=== PATIENT | female | born 1955 | race Caucasian/White ===

== ENCOUNTER 2017-08-27 13:15 | Inpatient (IN) | payer MEDICARE ==
[2018-01-09] MEDS ORDERED: Sodium Chloride 0.9% 10 ML Syringe FLUSH PRN (00:01)
[2018-01-09] MEDS ORDERED: Lidocaine 1%/Sod Bicarbonate in NS 8.4% 1 ML Syringe IDERM PRN (00:01)
[2018-01-09] MEDS ORDERED: Lactated Ringers 1,000 ML IV SCH (00:01)
[2018-01-09] MEDS ORDERED: Ketorolac 15 MG/ML SDV IVPUSH PRN (06:58)
[2018-01-09] MEDS ORDERED: Cyclobenzaprine 10 MG Tab PO PRN (06:58)
[2018-01-09] MEDS ORDERED: Ondansetron 4 MG/2 ML SDV IVPUSH PRN ×2 (06:59→13:36)
[2018-01-09] MEDS ORDERED: Bisacodyl 5 MG Tab PO PRN (06:59)
[2018-01-09] MEDS ORDERED: Naloxone 0.4 MG/ML SDV IVPUSH PRN (06:59)
[2018-01-09] MEDS ORDERED: Sennosides 8.6 MG Tab PO PRN (06:59)
[2018-01-09] MEDS ORDERED: Magnesium Hydroxide 400 MG/5 ML Susp 30 ML Cup PO PRN (06:59)
[2018-01-09] MEDS ORDERED: Morphine 2 MG/ML Syringe IVPUSH PRN (06:59)
[2018-01-09] MEDS ORDERED: EPINEPHrine 1 MG/ML SDV ONE (07:56)
[2018-01-09] MEDS ORDERED: Ropivacaine 0.5% 5 MG/ML 30 ML SDV ONE (07:56)
[2018-01-09] MEDS ORDERED: Lidocaine 1% 4 ML ONE ×2 (07:59→10:59)
[2018-01-09] MEDS ORDERED: ceFAZolin 1 GM Vial ONE ×2 (08:47→10:50)
[2018-01-09] MEDS ORDERED: Bupivacaine 0.25% 30 ML SDV ONE (08:47)
[2018-01-09] MEDS ORDERED: Vancomycin 1 GM SDV ONE (08:47)
[2018-01-09] MEDS ORDERED: fentaNYL 250 MCG/5 ML SDV ONE (10:26)
[2018-01-09] MEDS ORDERED: Midazolam 1 MG/ML 2 ML SDV ONE (10:26)
[2018-01-09] MEDS ORDERED: Propofol 200 MG/20 ML SDV ONE (10:26)
[2018-01-09] MEDS ORDERED: Ondansetron 4 MG/2 ML SDV ONE (10:52)
[2018-01-09] MEDS ORDERED: Dexamethasone 4 MG/ML 5 ML MDV ONE (10:52)
[2018-01-09] MEDS ORDERED: ePHEDrine/Normal Saline 25 MG/5 ML Syringe ONE (11:27)
--- NOTE | 2018-01-09 11:46 | PCM.PREANE ---
Preanesthetic Assessment - Procedure Proposed Procedure: Right reverse total shoulder replacement - Anesthesia/Transfusion/Family Hx Anesthesia History: Prior Anesthesia Without Reaction Family History of Anesthesia Reaction: No Transfusion History: No Prior Transfusion(s) Additional History: Hep C positive, Hx of MRSA - Review of Systems General: No Symptoms Pulmonary: No Symptoms Cardiovascular: Other (HTn) Gastrointestinal: No Symptoms Neurological: No Symptoms Other: Reports: Easy Bruising, Thyroid Problems (hypothyroid), Depression, Anxiety - Physical Assessment NPO Status Date: 01/08/18 NPO Status Time: 21:30 O2 Sat by Pulse Oximetry: 97 Respiratory Rate: 18 Vital Signs: Last Vital Signs Temp 37.1 C 01/09/18 09:20 Pulse 87 01/09/18 09:20 Resp 18 01/09/18 09:20 BP 135/84 01/09/18 09:20 Pulse Ox 97 01/09/18 09:20 Height: 1.5 m Weight: 98.883 kg ASA Class: 2 Mental Status: Alert & Oriented x3 Airway Class: Mallampati = 1 Dentition: Reports: Normal Dentition Thyro-Mental Finger Breadths: 3 Mouth Opening Finger Breadths: 3 ROM/Head Extension: Limited/Partial (due to bilateral shoulder pain) Lungs: Clear to Auscultation, Normal Respiratory Effort Cardiovascular: Regular Rate, Regular Rhythm - Lab Values: Laboratory Last Values MRSA (PCR) Negative 12/25/17 14:56 - Allergies Allergies/Adverse Reactions: Allergies Allergy/AdvReac Type Severity Reaction Status Date / Time No Known Allergies Allergy Verified 01/09/18 10:16 - Blood Blood Available: No Product(s) Available: None - Anesthesia Plan Pre-Op Medication Ordered: None - Acknowledgements Anesthesia Type Planned: General Anesthesia, Regional Block (preoperative right interscalene block ) Pt an Appropriate Candidate for the Planned Anesthesia: Yes Alternatives and Risks of Anesthesia Discussed w Pt/Guardian: Yes Pt/Guardian Understands and Agrees with Anesthesia Plan: Yes PreAnesthesia Questionnaire HEENT History: Reports: Allergic Rhinitis Other HEENT History: Hearing loss Cardiovascular History: Reports: Hypertension Other Respiratory History: Cough Gastrointestinal History: Reports: None Genitourinary History: Reports: None 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: Musculoskeletal History: Reports: Arthritis, Osteoarthritis, Other (See Below) Other Musculoskeletal History: Neck muscle spasms, shoulder pain Neurological History: Reports: None Psychiatric History: Reports: Anxiety, Depression Endocrine/Metabolic History: Reports: Hypothyroidism, Obesity/BMI 30+, Vitamin D Deficiency Other Endocrine/Metabolic History: Elevated blood sugars Hematologic History: Reports: None Immunologic History: Reports: None Oncologic (Cancer) History: Reports: None Dermatologic History: Reports: None - Infectious Disease History Infectious Disease History: Reports: Hepatitis C, MRSA - Past Surgical History Head Surgeries/Procedures: Reports: None HEENT Surgical History: Reports: Other (See Below) Other HEENT Surgeries/Procedures: [place] tooth extraction Cardiovascular Surgical History: Reports: None Respiratory Surgical History: Reports: None GI Surgical History: Reports: None Female Surgical History: Reports: Section Endocrine Surgical History: Reports: None Neurological Surgical History: Reports: None Other Musculoskeletal Surgeries/Procedures:: Bunion correction Oncologic Surgical History: Reports: None Dermatological Surgical History: Reports: None - SUBSTANCE USE Smoking Status *Q: Never Smoker Second Hand Smoke Exposure: No Recreational Drug Use History: No - HOME MEDS Home Medications: Home Meds Acyclovir 400 mg PO BID 01/08/18 [History] Calcium Carbonate/Vitamin D3 [Calcium 600 + Vit D Tablet] 1 tab PO DAILY [History] Cholecalciferol (Vitamin D3) [Vitamin D3] 5,000 unit PO DAILY 01/08/18 [History] Cyclobenzaprine [Flexeril] 5 mg PO BID 01/08/18 [History] DULoxetine [Cymbalta] 90 mg PO DAILY 01/08/18 [History] Gabapentin [Neurontin] 100 mg PO TID 01/08/18 [History] Hydrochlorothiazide 25 mg PO DAILY 01/08/18 [History] Levothyroxine 125 mcg PO DAILY 01/08/18 [History] Lisinopril 20 mg PO DAILY 01/08/18 [History] Multivitamin [Daily Multiple Vitamin] 1 tab PO DAILY 01/08/18 [History] SUMAtriptan [Imitrex] 50 mg PO ASDIRECTED PRN 01/08/18 [History] buPROPion [buPROPion XL] 450 mg PO DAILY 01/08/18 [History] traMADol [Ultram] 50 mg PO Q12H PRN 01/08/18 [History] - CURRENT (IN HOUSE) MEDS Current Meds: Current Medications Aspirin (Ecotrin) 325 mg PO BID NICOLASA Bisacodyl (Dulcolax) 5 mg PO DAILY PRN PRN Reason: Constipation Cyclobenzaprine HCl (Flexeril) 10 mg PO TID PRN PRN Reason: Spasms Docusate Sodium (Colace) 100 mg PO BID NICOLASA Famotidine (Pepcid) 20 mg PO Q12H [facility] Lactated Ringer's (Ringers, Lactated) 1,000 mls @ 125 mls/hr IV ASDIRECTED [facility] Last Admin: 01/09/18 09:35 Dose: 125 mls/hr Cefazolin Sodium/Dextrose 2 gm (/ Premix) 50 mls @ 100 mls/hr IV Q8H [facility] Stop: 01/10/18 11:29 Ketorolac Tromethamine (Toradol) 15 mg IVPUSH Q6H PRN PRN Reason: Pain Lidocaine/Sodium Bicarbonate (Buffered Lidocaine 1% In Ns 8.4%) 0.25 ml IDERM ONETIME PRN PRN Reason: Prior to IV Start Stop: 01/09/18 18:00 Last Admin: 01/09/18 09:34 Dose: 0.25 ml Magnesium Hydroxide (Milk Of Magnesia) 30 ml PO BID PRN PRN Reason: Constipation Morphine Sulfate (Morphine) 2 mg IVPUSH Q2H PRN PRN Reason: Breakthrough Pain Naloxone HCl (Narcan) 0.1 mg IVPUSH Q5M PRN PRN Reason: Oversedation Ondansetron HCl (Zofran) 4 mg IVPUSH Q6H PRN PRN Reason: Nausea/Vomiting Oxycodone/Acetaminophen (Percocet 325-5 Mg) 1 - 2 tab PO Q4H PRN PRN Reason: Pain Senna (Senna) 8.6 mg PO BID PRN PRN Reason: Constipation Sodium Chloride (Saline Flush) 10 ml FLUSH ASDIRECTED PRN PRN Reason: Keep Vein Open Discontinued Medications Bupivacaine HCl (Marcaine 0.25%) Confirm Administered Dose 30 ml .ROUTE .STK- MED ONE Stop: 01/09/18 08:48 Cefazolin Sodium (Ancef) Confirm Administered Dose 2 gm .ROUTE .STK-MED ONE Stop: 01/09/18 08:48 Cefazolin Sodium (Ancef) Confirm Administered Dose 2 gm .ROUTE .STK-MED ONE Stop: 01/09/18 10:51 Dexamethasone (Dexamethasone) Confirm Administered Dose 20 mg .ROUTE .ST-MED ONE Stop: 01/09/18 10:53 Ephedrine Sulfate (Ephedrine In Ns) Confirm Administered Dose 25 mg .ROUTE .ST- MED ONE Stop: 01/09/18 11:28 Epinephrine HCl (Adrenalin) Confirm Administered Dose 1 mg .ROUTE .STK-MED ONE Stop: 01/09/18 07:57 Fentanyl (Sublimaze) Confirm Administered Dose 250 mcg .ROUTE .ST-MED ONE Stop: 01/09/18 10:27 Lidocaine HCl (Xylocaine-Mpf 1%) Confirm Administered Dose 4 mls @ as directed .ROUTE .ST-MED ONE Stop: 01/09/18 08:00 Lidocaine HCl (Xylocaine-Mpf 1%) Confirm Administered Dose 4 mls @ as directed .ROUTE .ST-MED ONE Stop: 01/09/18 11:00 Iodine (Iodine 2% Mild Tincture) Confirm Administered Dose 30 ml .ROUTE .ST- MED ONE Stop: 01/09/18 08:48 Midazolam HCl (Versed 1 Mg/Ml) Confirm Administered Dose 2 mg .ROUTE .ST-MED ONE Stop: 01/09/18 10:27 Ondansetron HCl (Zofran) Confirm Administered Dose 4 mg .ROUTE .ST-MED ONE Stop: 01/09/18 10:53 Propofol (Diprivan 20 Ml) Confirm Administered Dose 200 mg .ROUTE .ST-MED ONE Stop: 01/09/18 10:27 Ropivacaine (Naropin 0.5%) Confirm Administered Dose 30 ml .ROUTE .ST-MED ONE Stop: 01/09/18 07:57 Tranexamic Acid (Cyklokapron) Confirm Administered Dose 1,000 mg .ROUTE .STK- MED ONE Stop: 01/09/18 08:48 Vancomycin HCl (Vancomycin) Confirm Administered Dose 1 gm .ROUTE .STK-MED ONE Stop: 01/09/18 08:48
[2018-01-09] MEDS ORDERED: Vancomycin 1.5 GM in Sodium Chloride 0.9% 500 ML IV ONE (12:00)
[2018-01-09] MEDS ORDERED: Phenylephrine 1% 10 MG/ML SDV ONE (12:40)
[2018-01-09] MEDS ORDERED: Sodium Chloride 0.9% 100 ML ONE (12:40)
[2018-01-09] MEDS ORDERED: Lactated Ringers 1,000 ML ONE ×2 (12:40)
[2018-01-09] MEDS: Iodine/Sodium Iodide 2% Tincture 30 ML Bottle ONE ×2 (12:44→12:45)
--- NOTE | 2018-01-09 13:33 | CR ---
Right shoulder: Two fluoroscopic spot views were obtained utilizing C-arm device. Study shows placement of a reverse shoulder prosthesis. Fluoroscopy time given as 2.8 seconds. Impression: 1. Operative study as noted above. Diagnostic code #2
--- NOTE | 2018-01-09 13:35 | PCM.POSTAN ---
POST ANESTHESIA ASSESSMENT - MENTAL STATUS Mental Status: Alert, Oriented - VITAL SIGNS Pulse Rate: 87 SaO2: 100 Resp Rate: 22 Blood Pressure: 115/77 Temperature: 36.2 C - RESPIRATORY Respiratory Status: Respiratory Rate WNL, Airway Patent, O2 Saturation Stable, Supplemental Oxygen - CARDIOVASCULAR CV Status: Pulse Rate WNL, Blood Pressure Stable - GASTROINTESTINAL GI Status: No Symptoms - PAIN Pain Score: 0 - POST OP HYDRATION Hydration Status: Adequate & Stable
[2018-01-09] MEDS ORDERED: Meperidine PF 50 MG/ML Syringe IVPUSH PRN (13:36)
[2018-01-09] MEDS ORDERED: fentaNYL 100 MCG/2 ML SDV IVPUSH PRN (13:36)
[2018-01-09] MEDS ORDERED: diphenhydrAMINE 50 MG/ML SDV IVPUSH PRN (13:36)
--- NOTE | 2018-01-09 14:16 | PCM.SN ---
- Free Text/Narrative Note: Right Interscalene nerve block Date: 01/09/2018 Start: 1031 Time Out: 1031 Stop: 1044 Surgical Procedure: Right reverse total shoulder replacement Diagnosis: Right shoulder OA Current Procedure: Right interscalene block under US guidance for postoperative pain control Patient chart reviewed, risk/benefits discussed with patient, consent obtained. Patient positioned supine, monitors/alarms on, oxygen placed via nasal cannula at 2 LPM. IV sedation administered: Versed 2mg IV Fentanyl 150 mcg IV Right shoulder prepped with chloraprep x1. Sterile drapes placed with aseptic technique. Under US guidance, right subclavian artery visualized along with the brachial plexus. Plexus followed cephalad up to C6 cricoid level, and area localized with 2mls of 1% lidocaine. 22gauge 2 inch stimiplex needle inserted under US and guided to brachial plexus C5-C6 trunks with 0.44mV with stimulation of biceps noted. Stimulation abolished at 0.2mVs. 1ml of Normal Saline injected with loss of stimulation up to 0.7mA. Incremental injection of 5mls with negative aspiration prior to each injection of 0.5% ropivacaine with 1 :200,000 epinephrine. Total volume=30mls. Refer to nurses notes for vital signs. Tin Rodriguez CRNA
--- NOTE | 2018-01-09 14:55 | CR ---
Right shoulder: Single AP view of the right shoulder was obtained utilizing portable technique. Reverse right shoulder prosthesis is seen. Components are aligned. Scoliosis is noted within the spine with mild degenerative change. No acute bony abnormality is seen. Impression: 1. Recently placed right shoulder prosthesis. No acute bony abnormality is seen. Diagnostic code #2
[2018-01-09] MEDS: Acetaminophen/oxyCODONE 325-5 MG Tab PO PRN (15:12)
--- NOTE | 2018-01-09 17:04 | PCM.CONS ---
H&P History of Present Illness - General Date of Service: 01/09/18 Admit Problem/Dx: Admission Diagnosis/Problem Admission Diagnosis/Problem Osteoarthritis of shoulder Source of Information: Patient, Old Records, Provider History Limitations: Reports: No Limitations - History of Present Illness Initial Comments - Free Text/Narative: Delilah is a 62 yo female patient of Dr. Henry who is post-operative day 0 of right shoulder arthroplasty. Hospital medicine was consulted for post-operative medical care. At this time she is stable. Pain is controlled. She denies any chest pain, shortness of breath, palpitations, nausea, or vomiting. She carries a history of: Osteoarthritis, depression, anxiety, hep C, hypertension, history of MRSA, migraines, obesity. Never a smoker. She is a full code. Her primary care provider is Yudelka Castelan PA-C. - Related Data Allergies/Adverse Reactions: Allergies Allergy/AdvReac Type Severity Reaction Status Date / Time No Known Allergies Allergy Verified 01/09/18 15:17 Home Medications: Home Meds Acyclovir 400 mg PO BID 01/08/18 [History] Calcium Carbonate/Vitamin D3 [Calcium 600 + Vit D Tablet] 1 tab PO DAILY [History] Cholecalciferol (Vitamin D3) [Vitamin D3] 5,000 unit PO DAILY 01/08/18 [History] Cyclobenzaprine [Flexeril] 5 mg PO BID 01/08/18 [History] DULoxetine [Cymbalta] 90 mg PO DAILY 01/08/18 [History] Gabapentin [Neurontin] 100 mg PO TID 01/08/18 [History] Hydrochlorothiazide 25 mg PO DAILY 01/08/18 [History] Levothyroxine 125 mcg PO DAILY 01/08/18 [History] Lisinopril 20 mg PO DAILY 01/08/18 [History] Multivitamin [Daily Multiple Vitamin] 1 tab PO DAILY 01/08/18 [History] SUMAtriptan [Imitrex] 50 mg PO ASDIRECTED PRN 01/08/18 [History] buPROPion [buPROPion XL] 450 mg PO DAILY 01/08/18 [History] traMADol [Ultram] 50 mg PO Q12H PRN 01/08/18 [History] Meloxicam 7.5 mg PO 01/09/18 [History] Past Medical History HEENT History: Reports: Allergic Rhinitis Other HEENT History: Hearing loss Cardiovascular History: Reports: Hypertension Other Respiratory History: Cough Gastrointestinal History: Reports: None Genitourinary History: Reports: None 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 Immunologic History: Reports: None Oncologic (Cancer) History: Reports: None Dermatologic History: Reports: None - Infectious Disease History Infectious Disease History: Reports: Hepatitis C, MRSA, Other (See Below) Other Infectious Disease History: Patient reports herpes - Past Surgical History Head Surgeries/Procedures: Reports: None HEENT Surgical History: Reports: Other (See Below) Other HEENT Surgeries/Procedures: [place] tooth extraction Cardiovascular Surgical History: Reports: None Respiratory Surgical History: Reports: None GI Surgical History: Reports: None Female Surgical History: Reports: Section Endocrine Surgical History: Reports: None Neurological Surgical History: Reports: None Other Musculoskeletal Surgeries/Procedures:: Bunion correction Oncologic Surgical History: Reports: None Dermatological Surgical History: Reports: None Social & Family History - Tobacco Use Smoking Status *Q: Never Smoker Second Hand Smoke Exposure: No - Caffeine Use Caffeine Use: Reports: Coffee, Tea Other Caffeine Use: rarely coffee, tea every day - Alcohol Use Days Per Week of Alcohol Use: 1 Number of Drinks Per Day: 1 Total Drinks Per Week: 1 - Recreational Drug Use Recreational Drug Use: No Drug Use in Last 12 Months: No H&P Review of Systems - Review of Systems: Review Of Systems: See Below General: Reports: No Symptoms. Denies: Fever, Chills HEENT: Reports: No Symptoms Pulmonary: Reports: No Symptoms Cardiovascular: Reports: No Symptoms. Denies: Chest Pain, Palpitations, Dyspnea on Exertion, Edema Gastrointestinal: Reports: No Symptoms. Denies: Abdominal Pain, Diarrhea, Nausea, Vomiting Genitourinary: Reports: No Symptoms. Denies: Dysuria, Frequency, Burning, Pain Musculoskeletal: Reports: No Symptoms. Denies: Arm Pain (s/p RSA) Skin: Reports: Bruising (Right shoulder, s/p RSA) Psychiatric: Reports: No Symptoms Neurological: Reports: Numbness (right hand and fingers, s/p RSA), Tingling ( right hand and fingers, s/p RSA). Denies: Confusion, Headache Hematologic/Lymphatic: Reports: No Symptoms Immunologic: Reports: No Symptoms Exam - Exam Exam: See Below - Vital Signs Vital Signs: Last Vital Signs Temp 97.8 F 01/09/18 14:50 Pulse 96 01/09/18 15:00 Resp 18 01/09/18 14:50 BP 93/49 L 01/09/18 15:00 Pulse Ox 94 L 01/09/18 14:50 Weight: 218 lb - Exam Quality Assessment: DVT Prophylaxis. No: Supplemental Oxygen General: Alert, Oriented, Cooperative, Mild Distress HEENT: PERRLA, Hearing Intact, Mucosa Moist & [place], Nares Patent, Normal Nasal Septum, Posterior Pharynx Clear, Conjunctiva Clear, EOMI, EACs Clear, TMs Clear Neck: Supple, Trachea Midline, 2 Lungs: Clear to Auscultation, Normal Respiratory Effort Cardiovascular: Regular Rate, Regular Rhythm GI/Abdominal Exam: Normal Bowel Sounds, Soft, Non-Tender, No Organomegaly, No Distention, No Abnormal Bruit, No Mass, Pelvis Stable (Female) Exam: Deferred Rectal (Female) Exam: Deferred Back Exam: Normal Inspection, Full Range of Motion, NT Extremities: Normal Inspection, Normal Range of Motion, Non-Tender, No Pedal Edema, Normal Capillary Refill, Limited Range of Motion (s/p RSA). No: Arm Pain (0/0 pain, s/p RSA) Peripheral Pulses: 2+: Brachial (L), Brachial (R), Radial (L), Radial (R), Posterior Tibial (L), Posterior Tibial (R), Dorsalis Pedis (L), Dorsalis Pedis ( R) Skin: Warm, Dry, Intact, Other (bruising to right shoulder, bandage dry and intact, s/p RSA) Neurological: Cranial Nerves Intact (grossly) Neuro Extensive - Mental Status: Alert, Oriented x3, Normal Mood/Affect, Normal Cognition, Memory Intact Psychiatric: Alert, Normal Affect, Normal Mood Consult PN Assessment/Plan POD#: 0 Procedures: Procedures ANTINUCLEAR ANTIBODIES (03/13/17) ASSAY OF FREE THYROXINE (10/31/16) ASSAY OF PREALBUMIN (12/27/17) ASSAY OF TROPONIN QUANT (04/17/17) ASSAY THYROID STIM HORMONE (12/27/17) ASSAY TRIIODOTHYRONINE (T3) (07/27/16) C-REACTIVE PROTEIN (03/13/17) COMPLETE CBC AUTOMATED (12/27/17) COMPLETE CBC W/AUTO DIFF WBC (08/20/17) COMPREHEN METABOLIC PANEL (12/27/17) CT ANGIOGRAPHY CHEST (04/17/17) DXA BONE DENSITY AXIAL (08/20/17) ELECTROCARDIOGRAM TRACING (08/20/17) EXTRACRANIAL BILAT STUDY (04/24/17) FIBRIN DEGRADATION QUANT (04/17/17) GLYCOSYLATED HEMOGLOBIN TEST (12/27/17) LIPID PANEL (04/24/17) METABOLIC PANEL TOTAL CA (06/14/17) MR-STAPH DNA AMP PROBE (08/17/17) OFFICE/OUTPATIENT VISIT EST (08/20/17) OFFICE/OUTPATIENT VISIT EST (03/23/17) OFFICE/OUTPATIENT VISIT EST (08/03/16) PROTHROMBIN TIME (12/27/17) RBC SED RATE AUTOMATED (03/13/17) RHEUMATOID FACTOR TEST QUAL (03/13/17) ROUTINE VENIPUNCTURE (12/27/17) THROMBOPLASTIN TIME PARTIAL (12/27/17) UR ALBUMIN SEMIQUANTITATIVE (06/14/17) URINALYSIS AUTO W/SCOPE (12/27/17) URINE CULTURE/COLONY COUNT (04/17/17) US EXAM ABDO BACK WALL PEREZ (04/24/17) VIT D 1 25-DIHYDROXY (08/20/17) VITAMIN D 25 HYDROXY (04/17/17) X-RAY EXAM CHEST 2 VIEWS (08/20/17) X-RAY EXAM NECK SPINE 2-3 VW (10/31/16) (1) Osteoarthritis SNOMED Code(s): 198333926 Code(s): M19.90 - UNSPECIFIED OSTEOARTHRITIS, UNSPECIFIED SITE Priority: High Current Visit: Yes Qualifiers: Osteoarthritis location: shoulder Osteoarthritis type: unspecified Laterality: bilateral Qualified Code(s): M19.011 - Primary osteoarthritis, right shoulder; M19.012 - Primary osteoarthritis, left shoulder (2) Status post total shoulder arthroplasty SNOMED Code(s): 342210539, 317614560 Code(s): Z96.619 - PRESENCE OF UNSPECIFIED ARTIFICIAL SHOULDER JOINT Priority: High Current Visit: Yes Qualifiers: Laterality: right Qualified Code(s): Z96.611 - Presence of right artificial shoulder joint (3) History of MRSA infection SNOMED Code(s): 862974653, 116672233 Code(s): Z86.14 - PERSONAL HISTORY OF METHICILLIN RESIS STAPH INFECTION Priority: High Current Visit: Yes (4) HTN (hypertension) SNOMED Code(s): 70477401 Code(s): I10 - ESSENTIAL (PRIMARY) HYPERTENSION Priority: Medium Current Visit: No Qualifiers: Hypertension type: unspecified Qualified Code(s): I10 - Essential (primary ) hypertension (5) Hepatitis C SNOMED Code(s): 51634461 Code(s): B19.20 - UNSPECIFIED VIRAL HEPATITIS C WITHOUT HEPATIC COMA Priority: Low Current Visit: Yes Qualifiers: Viral hepatitis chronicity: unspecified Hepatic coma status: without hepatic coma Qualified Code(s): B19.20 - Unspecified viral hepatitis C without hepatic coma (6) Morbid obesity with BMI of 40.0-44.9, adult SNOMED Code(s): 021376184 Code(s): E66.01 - MORBID (SEVERE) OBESITY DUE TO EXCESS CALORIES; Z68.41 - BODY MASS INDEX (BMI) 40.0-44.9, ADULT Priority: Low Current Visit: Yes Problem List Initiated/Reviewed/Updated: Yes Plan: I/P: Acute: S/P right total shoulder arthroplasty - post-operative day 0 -DVT prophylaxis and pain management per primary care team -PT/OT -IS/RT -Monitor oxygen saturation -Titrate oxygen as needed -Vital signs stable -Monitor labs Osteoarthritis of shoulders, bilateral -Pain management per primary care team Chronic: HTN Hepatitis C History of MRSA Depression Anxiety Migraines Morbid obesity Plan: CM for discharge planning GI prophylaxis: Pepcid DVT/PE prophylaxis: AMANDA mansfielde, SCD, ASA Home medications as indicated Other orders as listed above Routine AM labs She is a full code. Her PCP is Yudelka Castelan PA-C. Thank you for allowing us to participate in the care of this patient!!
[2018-01-09] MEDS: ceFAZolin 2 GM in Premix Bag 1 BAG IV SCH (18:12)
[2018-01-09] MEDS ORDERED: traMADol 50 MG Tab PO PRN (20:04)
[2018-01-09] MEDS ORDERED: SUMAtriptan 50 MG Tab PO PRN (20:04)
[2018-01-09] MEDS: Acyclovir 200 MG Cap PO SCH (21:15)
[2018-01-09] MEDS: Cyclobenzaprine 10 MG Tab PO SCH (21:16)
[2018-01-09] MEDS: Docusate Sodium 100 MG Cap PO SCH (21:17)
[2018-01-09] MEDS: Famotidine 20 MG Tab PO SCH (21:17)
[2018-01-09] MEDS: Gabapentin 100 MG Cap PO SCH (21:18)
[2018-01-10] MEDS: Acetaminophen/oxyCODONE 325-5 MG Tab PO PRN ×4 (00:29→15:33)
[2018-01-10] MEDS: ceFAZolin 2 GM in Premix Bag 1 BAG IV SCH ×2 (03:55→10:09)
[2018-01-10] MEDS ORDERED: Levothyroxine 125 MCG Tab PO SCH (06:00)
[2018-01-10] MEDS ORDERED: Multivitamins,Therapeutic Tab PO SCH (09:00)
[2018-01-10] MEDS ORDERED: Cholecalciferol (Vitamin D3) 5,000 UNIT Tab PO SCH (09:00)
[2018-01-10] MEDS ORDERED: Lisinopril 20 MG Tab PO SCH (09:00)
[2018-01-10] MEDS ORDERED: Hydrochlorothiazide 25 MG Tab PO SCH (09:00)
[2018-01-10] MEDS ORDERED: buPROPion 150 MG Tab.ER PO SCH (09:00)
[2018-01-10] MEDS ORDERED: Aspirin 325 MG Tab.EC PO SCH (09:00)
[2018-01-10] MEDS ORDERED: DULoxetine 30 MG Cap PO SCH (09:00)
[2018-01-10] MEDS: Famotidine 20 MG Tab PO SCH (09:51)
[2018-01-10] MEDS: Acyclovir 200 MG Cap PO SCH (09:52)
[2018-01-10] MEDS: Gabapentin 100 MG Cap PO SCH ×2 (09:52→15:33)
[2018-01-10] MEDS: Calcium Carbonate/Vitamin D3 600 MG-200 Units Tab PO SCH ×2 (09:52→10:06)
[2018-01-10] MEDS: Docusate Sodium 100 MG Cap PO SCH (09:53)
[2018-01-10] MEDS: Cyclobenzaprine 10 MG Tab PO SCH (09:53)
--- NOTE | 2018-01-10 11:40 | PCM.SURGPN ---
- General Info Date of Service: 01/10/18 POD#: 1 Functional Status: Reports: Pain Controlled, Tolerating Diet, Ambulating, Urinating, Incentive Spirometry, Other (The pt states she is prepared for discharge to home.) - Patient Data Vitals - Most Recent: Last Vital Signs Temp 98.6 F 01/10/18 10:05 Pulse 104 H 01/10/18 10:05 Resp 18 01/10/18 10:05 BP 98/63 01/10/18 10:10 Pulse Ox 100 01/10/18 10:05 Weight - Most Recent: 224 lb 12.8 oz I&O - Last 24 Hours: Intake & Output 01/09/18 01/10/18 01/10/18 22:59 06:59 14:59 Intake Total 350 2050 Output Total 600 1400 Balance -250 650 Lab Results Last 24 Hrs: Laboratory Results - last 24 hr 01/10/18 01/10/18 Range/Units 05:47 05:47 WBC 6.33 (3.98-10.04) K/mm3 RBC 3.27 L (3.98-5.22) M/mm3 Hgb 9.4 L (11.2-15.7) gm/L Hct 29.4 L (34.1-44.9) % MCV 89.9 (79.4-94.8) fl MCH 28.7 (25.6-32.2) pg MCHC 32.0 L (32.2-35.5) g/dl RDW Std Deviation 47.3 H (36.4-46.3) fL Plt Count 235 (182-369) K/mm3 MPV 9.7 (9.4-12.3) fl Sodium 135 L (136-145) mEq/L Potassium 4.2 (3.5-5.1) mEq/L Chloride 103 (98-107) mEq/L Carbon Dioxide 26 (21-32) mEq/L Anion Gap 10.2 (5-15) BUN 18 (7-18) mg/dL Creatinine 0.9 (0.55-1.02) mg/dL Est Cr Clr Drug Dosing 46.55 mL/min Estimated GFR (MDRD) > 60 (>60) mL/min BUN/Creatinine Ratio 20.0 H (14-18) Glucose 144 H (80-115) mg/dL Calcium 8.3 L (8.5-10.1) mg/dL Total Bilirubin 0.4 (0.2-1.0) mg/dL AST 23 (15-37) U/L ALT 20 (14-59) U/L Alkaline Phosphatase 52 (46-116) U/L Total Protein 5.1 L (6.4-8.2) g/dl Albumin 2.6 L (3.4-5.0) g/dl Globulin 2.5 gm/dL Albumin/Globulin Ratio 1.0 (1-2) Med Orders - Current: Current Medications Acyclovir (Zovirax) 400 mg PO BID [facility] Last Admin: 01/10/18 09:52 Dose: 400 mg Aspirin (Ecotrin) 325 mg PO BID [facility] Last Admin: 01/10/18 09:52 Dose: 325 mg Bisacodyl (Dulcolax) 5 mg PO DAILY PRN PRN Reason: Constipation Bupropion HCl (Wellbutrin Xl) 450 mg PO DAILY [facility] Last Admin: 01/10/18 09:52 Dose: 450 mg Calcium Carbonate (Calcium Carbonate/Vitamin D 600 Mg-200 Unit) 1 tab PO DAILY [facility] Last Admin: 01/10/18 10:06 Dose: 1 tab Cholecalciferol (Vitamin D3) 5,000 unit PO DAILY [facility] Last Admin: 01/10/18 09:53 Dose: 5,000 unit Cyclobenzaprine HCl (Flexeril) 10 mg PO TID PRN PRN Reason: Spasms Cyclobenzaprine HCl (Flexeril) 5 mg PO BID [facility] Last Admin: 01/10/18 09:53 Dose: 5 mg Docusate Sodium (Colace) 100 mg PO BID [facility] Last Admin: 01/10/18 09:53 Dose: 100 mg Duloxetine HCl (Cymbalta) 90 mg PO DAILY [facility] Last Admin: 01/10/18 09:52 Dose: 90 mg Famotidine (Pepcid) 20 mg PO Q12H [facility] Last Admin: 01/10/18 09:51 Dose: 20 mg Gabapentin (Neurontin) 100 mg PO TID [facility] Last Admin: 01/10/18 09:52 Dose: 100 mg Hydrochlorothiazide (Hydrochlorothiazide) 25 mg PO DAILY [facility] Last Admin: 01/10/18 09:52 Dose: 25 mg Ketorolac Tromethamine (Toradol) 15 mg IVPUSH Q6H PRN PRN Reason: Pain Last Admin: 01/10/18 04:05 Dose: 15 mg Levothyroxine Sodium (Levothyroxine) 125 mcg PO ACBRK [facility] Last Admin: 01/10/18 05:07 Dose: 125 mcg Lisinopril (Prinivil) 20 mg PO DAILY [facility] Last Admin: 01/10/18 10:10 Dose: 20 mg Magnesium Hydroxide (Milk Of Magnesia) 30 ml PO BID PRN PRN Reason: Constipation Morphine Sulfate (Morphine) 2 mg IVPUSH Q2H PRN PRN Reason: Breakthrough Pain Multivitamins (Thera) 1 each PO DAILY [facility] Last Admin: 01/10/18 09:51 Dose: 1 each Naloxone HCl (Narcan) 0.1 mg IVPUSH Q5M PRN PRN Reason: Oversedation Ondansetron HCl (Zofran) 4 mg IVPUSH Q6H PRN PRN Reason: Nausea/Vomiting Oxycodone/Acetaminophen (Percocet 325-5 Mg) 1 - 2 tab PO Q4H PRN PRN Reason: Pain Last Admin: 01/10/18 09:52 Dose: 2 tab Senna (Senna) 8.6 mg PO BID PRN PRN Reason: Constipation Sodium Chloride (Saline Flush) 10 ml FLUSH ASDIRECTED PRN PRN Reason: Keep Vein Open Sumatriptan Succinate (Imitrex) 50 mg PO ASDIRECTED PRN PRN Reason: Migraine Last Admin: 01/09/18 23:55 Dose: 50 mg Tramadol HCl (Ultram) 50 mg PO Q12H PRN PRN Reason: Pain Discontinued Medications Bupivacaine HCl (Marcaine 0.25%) Confirm Administered Dose 30 ml .ROUTE .STK- MED ONE Stop: 01/09/18 08:48 Last Admin: 01/09/18 12:55 Dose: 15 ml Cefazolin Sodium (Ancef) Confirm Administered Dose 2 gm .ROUTE .STK-MED ONE Stop: 01/09/18 08:48 Last Admin: 01/09/18 12:42 Dose: 2 gm Cefazolin Sodium (Ancef) Confirm Administered Dose 2 gm .ROUTE .STK-MED ONE Stop: 01/09/18 10:51 Dexamethasone (Dexamethasone) Confirm Administered Dose 20 mg .ROUTE .STK-MED ONE Stop: 01/09/18 10:53 Diphenhydramine HCl (Benadryl) 25 mg IVPUSH Q6H PRN PRN Reason: Pruritis Stop: 01/09/18 23:00 Ephedrine Sulfate (Ephedrine In Ns) Confirm Administered Dose 25 mg .ROUTE .STK- MED ONE Stop: 01/09/18 11:28 Epinephrine HCl (Adrenalin) Confirm Administered Dose 1 mg .ROUTE .STK-MED ONE Stop: 01/09/18 07:57 Fentanyl (Sublimaze) Confirm Administered Dose 250 mcg .ROUTE .STK-MED ONE Stop: 01/09/18 10:27 Fentanyl (Sublimaze) 50 mcg IVPUSH Q5M PRN PRN Reason: Pain Stop: 01/09/18 13:37 Lactated Ringer's (Ringers, Lactated) 1,000 mls @ 125 mls/hr IV ASDIRECTED [facility] Last Admin: 01/09/18 09:35 Dose: 125 mls/hr Cefazolin Sodium/Dextrose 2 gm (/ Premix) 50 mls @ 100 mls/hr IV Q8H [facility] Stop: 01/10/18 11:29 Last Admin: 01/10/18 10:09 Dose: 100 mls/hr Lidocaine HCl (Xylocaine-Mpf 1%) Confirm Administered Dose 4 mls @ as directed .ROUTE .STK-MED ONE Stop: 01/09/18 08:00 Lidocaine HCl (Xylocaine-Mpf 1%) Confirm Administered Dose 4 mls @ as directed .ROUTE .STK-MED ONE Stop: 01/09/18 11:00 Vancomycin HCl 1.5 gm/ Sodium (Chloride) 500 mls @ 333.333 mls/hr IV ONETIME ONE Stop: 01/09/18 13:29 Last Admin: 01/09/18 20:52 Dose: Not Given Sodium Chloride (Normal Saline) Confirm Administered Dose 100 mls @ as directed .ROUTE .STK-MED ONE Stop: 01/09/18 12:41 Lactated Ringer's (Ringers, Lactated) Confirm Administered Dose 1,000 mls @ as directed .ROUTE .STK-MED ONE Stop: 01/09/18 12:41 Lactated Ringer's (Ringers, Lactated) Confirm Administered Dose 1,000 mls @ as directed .ROUTE .STK-MED ONE Stop: 01/09/18 12:41 Iodine (Iodine 2% Mild Tincture) Confirm Administered Dose 30 ml .ROUTE .STK- MED ONE Stop: 01/09/18 08:48 Last Admin: 01/09/18 12:45 Dose: 18 ml Lidocaine/Sodium Bicarbonate (Buffered Lidocaine 1% In Ns 8.4%) 0.25 ml IDERM ONETIME PRN PRN Reason: Prior to IV Start Stop: 01/09/18 18:00 Last Admin: 01/09/18 09:34 Dose: 0.25 ml Meperidine HCl (Demerol) 12.5 mg IVPUSH ONETIME PRN PRN Reason: Shivering Stop: 01/09/18 20:00 Midazolam HCl (Versed 1 Mg/Ml) Confirm Administered Dose 2 mg .ROUTE .STK-MED ONE Stop: 01/09/18 10:27 Ondansetron HCl (Zofran) Confirm Administered Dose 4 mg .ROUTE .STK-MED ONE Stop: 01/09/18 10:53 Ondansetron HCl (Zofran) 4 mg IVPUSH ONETIME PRN PRN Reason: Nausea/Vomiting Stop: 01/09/18 18:00 Phenylephrine HCl (Shun-Synephrine) Confirm Administered Dose 10 mg .ROUTE .STK- MED ONE Stop: 01/09/18 12:41 Propofol (Diprivan 20 Ml) Confirm Administered Dose 200 mg .ROUTE .STK-MED ONE Stop: 01/09/18 10:27 Ropivacaine (Naropin 0.5%) Confirm Administered Dose 30 ml .ROUTE .STK-MED ONE Stop: 01/09/18 07:57 Tranexamic Acid (Cyklokapron) Confirm Administered Dose 1,000 mg .ROUTE .STK- MED ONE Stop: 01/09/18 08:48 Last Admin: 01/09/18 12:48 Dose: 1,000 mg Vancomycin HCl (Vancomycin) Confirm Administered Dose 1 gm .ROUTE .STK-MED ONE Stop: 01/09/18 08:48 Last Admin: 01/09/18 12:49 Dose: 1 gm - Exam Wound/Incisions: Dressing Dry and Intact General: Alert, Cooperative, No Acute Distress Lungs: Normal Respiratory Effort Extremities: Other (NVS intact for BUE. Active hand and wrist motion on the right noted.) - Problem List Review Problem List Initiated/Reviewed/Updated: Yes - My Orders Last 24 Hours: Active Orders 24 hr Category Date Time Status Notify Provider [RC] ASDIRECTED Care 01/09/18 13:36 Active Pulse Oximetry [RC] ASDIRECTED Care 01/09/18 13:36 Active Ready for Discharge [RC] PER UNIT ROUTINE Care 01/10/18 11:00 Active Vital Signs [RC] Q4HR Care 01/09/18 20:04 Active Consult to Human Resources Associate [CONS] Routine Cons 01/09/18 20:38 Active Regular Diet [DIET] Diet 01/09/18 Lunch Active Acyclovir [Zovirax] Med 01/09/18 21:00 Active 400 mg PO BID Aspirin [Ecotrin] Med 01/10/18 09:00 Active 325 mg PO BID Calcium Carbonate/Vitamin D3 [Calcium Carbonate/Vitamin Med 01/10/18 09:00 Active D 600 MG-200 Unit] 1 tab PO DAILY Cholecalciferol (Vitamin D3) [Vitamin D3] Med 01/10/18 09:00 Active 5,000 unit PO DAILY Cyclobenzaprine [Flexeril] Med 01/09/18 21:00 Active 5 mg PO BID DULoxetine [Cymbalta] Med 01/10/18 09:00 Active 90 mg PO DAILY Docusate Sodium [Colace] Med 01/09/18 21:00 Active 100 mg PO BID Famotidine [Pepcid] Med 01/09/18 21:00 Active 20 mg PO Q12H Gabapentin [Neurontin] Med 01/09/18 21:00 Active 100 mg PO TID Hydrochlorothiazide Med 01/10/18 09:00 Active 25 mg PO DAILY Levothyroxine Med 01/10/18 06:00 Active 125 mcg PO ACBRK Lisinopril [Prinivil] Med 01/10/18 09:00 Active 20 mg PO DAILY Multivitamins,Therapeutic [Thera] Med 01/10/18 09:00 Active 1 each PO DAILY SUMAtriptan [Imitrex] Med 01/09/18 20:04 Active 50 mg PO ASDIRECTED PRN buPROPion [Wellbutrin XL] Med 01/10/18 09:00 Active 450 mg PO DAILY traMADol [Ultram] Med 01/09/18 20:04 Active 50 mg PO Q12H PRN Medication Orders Acyclovir (Zovirax) 400 mg PO BID [facility] Last Admin: 01/10/18 09:52 Dose: 400 mg Admin: 01/09/18 21:15 Dose: 400 mg Aspirin (Ecotrin) 325 mg PO BID [facility] Last Admin: 01/10/18 09:52 Dose: 325 mg Bisacodyl (Dulcolax) 5 mg PO DAILY PRN PRN Reason: Constipation Bupropion HCl (Wellbutrin Xl) 450 mg PO DAILY [facility] Last Admin: 01/10/18 09:52 Dose: 450 mg Calcium Carbonate (Calcium Carbonate/Vitamin D 600 Mg-200 Unit) 1 tab PO DAILY [facility] Last Admin: 01/10/18 10:06 Dose: 1 tab Admin: 01/10/18 09:52 Dose: 1 tab Cholecalciferol (Vitamin D3) 5,000 unit PO DAILY [facility] Last Admin: 01/10/18 09:53 Dose: 5,000 unit Cyclobenzaprine HCl (Flexeril) 10 mg PO TID PRN PRN Reason: Spasms Cyclobenzaprine HCl (Flexeril) 5 mg PO BID [facility] Last Admin: 01/10/18 09:53 Dose: 5 mg Admin: 01/09/18 21:16 Dose: 5 mg Docusate Sodium (Colace) 100 mg PO BID [facility] Last Admin: 01/10/18 09:53 Dose: 100 mg Admin: 01/09/18 21:17 Dose: 100 mg Duloxetine HCl (Cymbalta) 90 mg PO DAILY [facility] Last Admin: 01/10/18 09:52 Dose: 90 mg Famotidine (Pepcid) 20 mg PO Q12H [facility] Last Admin: 01/10/18 09:51 Dose: 20 mg Admin: 01/09/18 21:17 Dose: 20 mg Gabapentin (Neurontin) 100 mg PO TID [facility] Last Admin: 01/10/18 09:52 Dose: 100 mg Admin: 01/09/18 21:18 Dose: 100 mg Hydrochlorothiazide (Hydrochlorothiazide) 25 mg PO DAILY [facility] Last Admin: 01/10/18 09:52 Dose: 25 mg Ketorolac Tromethamine (Toradol) 15 mg IVPUSH Q6H PRN PRN Reason: Pain Last Admin: 01/10/18 04:05 Dose: 15 mg Levothyroxine Sodium (Levothyroxine) 125 mcg PO ACBRK [facility] Last Admin: 01/10/18 05:07 Dose: 125 mcg Lisinopril (Prinivil) 20 mg PO DAILY [facility] Last Admin: 01/10/18 10:10 Dose: 20 mg Magnesium Hydroxide (Milk Of Magnesia) 30 ml PO BID PRN PRN Reason: Constipation Morphine Sulfate (Morphine) 2 mg IVPUSH Q2H PRN PRN Reason: Breakthrough Pain Multivitamins (Thera) 1 each PO DAILY [facility] Last Admin: 01/10/18 09:51 Dose: 1 each Naloxone HCl (Narcan) 0.1 mg IVPUSH Q5M PRN PRN Reason: Oversedation Ondansetron HCl (Zofran) 4 mg IVPUSH Q6H PRN PRN Reason: Nausea/Vomiting Oxycodone/Acetaminophen (Percocet 325-5 Mg) 1 - 2 tab PO Q4H PRN PRN Reason: Pain Last Admin: 01/10/18 09:52 Dose: 2 tab Admin: 01/10/18 04:33 Dose: 2 tab Admin: 01/10/18 00:29 Dose: 2 tab Admin: 01/09/18 15:12 Dose: 2 tab Senna (Senna) 8.6 mg PO BID PRN PRN Reason: Constipation Sodium Chloride (Saline Flush) 10 ml FLUSH ASDIRECTED PRN PRN Reason: Keep Vein Open Sumatriptan Succinate (Imitrex) 50 mg PO ASDIRECTED PRN PRN Reason: Migraine Last Admin: 01/09/18 23:55 Dose: 50 mg Tramadol HCl (Ultram) 50 mg PO Q12H PRN PRN Reason: Pain - Assessment Assessment (Free Text/Narrative):: POD#1 - right reverse TSA - Plan Plan (Free Text/Narrative):: 1. Hgb 9.4. 2. Discharge to home today. 3. Again discussed lifelong lifting restrictions. 4. Progress as per therapy protocol. 5. The pt has been cleared by Hospitalist service. The pt's case was discussed with Dr. Henry.
--- NOTE | 2018-01-10 11:42 | PCM.DCSUM1 ---
Discharge Summary - Hospital Course Brief History: Delilah is a 62 yo female who underwent right reverse TSA with Dr. Henry on 01-09-2018. The procedure was completed under general anesthesia with regional block. The pt tolerated the procedure well and was admitted to the Medical-Surgical Unit. The pt received Ancef primo-operatively. She participated in P.T. and O.T. and progressed well. The pt's surgical wound was dressed with a Mepilex dressing and remained clean and dry. On POD#1, the pt was started on 325mg ASA BID for VTE prophylaxis. The pt used TEDs and SCDs also. On POD#1, the pt's hemoglobin was 9.4. Medical management was provided by the Hospitalist service and the pt's hospital course was uneventful. On POD# 1, the pt was deemed appropriate for discharge to home with her family member. - Discharge Data Discharge Date: 01/10/18 Discharge Disposition: Home, Self-Care 01 Condition: Good - Patient Summary/Data Consults: Consultations 01/09/18 06:58 OT Evaluation and Treatment [CONS] Routine PT Evaluation and Treatment [CONS] Routine 01/09/18 06:59 Consult to Physician [CONS] Routine 01/09/18 20:38 Consult to Detail Supervisor [CONS] Routine - Patient Instructions Diet: Usual Diet as Tolerated Activity: Apply Ice, As Tolerated, Elevate Extremity Activity, Other: No forceful use of the surgical arm. Driving: Do Not Drive Showering/Bathing: May Shower Wound/Incision Care: Keep Operative Site/Wound Site Clean and Dry, Do NOT Change Dressing Notify Provider of: Fever, Increased Pain, Swelling and Redness, Drainage, Nausea and/or Vomiting Other/Special Instructions: Please get up and moving around every hour while awake. Have help with mobility as needed. This helps to prevent blood clots. Please take a 325mg aspirin twice daily. This also helps to prevent blood clots. The aspirin is not being used for pain management, but rather for blood clot prevention so please try not to miss a dose of the medication. Please wear the immobilizer as directed. You may schedule for physical or occupational therapy. The therapist will use the [facility] protocol. Place ice to the limb. Have a towel between the blue ice pad and your skin. Keep the Mepilex dressing in place until follow-up at the Clinic. You may shower, but please do not soak the incision and dressing in a tub, pool, whirlpool. You may use the pain medication as needed. The medication may cause drowsiness and/or constipation. Please contact your primary care provider for instructions if you are constipated. Please call the Clinic with other concerns - [phone]. - Discharge Plan Prescriptions/Med Rec: Acetaminophen/oxyCODONE [Percocet 325-5 MG] 1 - 2 tab PO Q6H PRN #60 tablet PRN Reason: Pain Aspirin [Ecotrin] 325 mg PO BID #84 tab.ec Cyclobenzaprine [Flexeril] 10 mg PO TID PRN #40 tablet PRN Reason: Spasms Home Medications: Home Meds Acyclovir 400 mg PO BID 01/08/18 [History] Calcium Carbonate/Vitamin D3 [Calcium 600 + Vit D Tablet] 1 tab PO DAILY [History] Cholecalciferol (Vitamin D3) [Vitamin D3] 5,000 unit PO DAILY 01/08/18 [History] DULoxetine [Cymbalta] 90 mg PO DAILY 01/08/18 [History] Gabapentin [Neurontin] 100 mg PO TID 01/08/18 [History] Hydrochlorothiazide 25 mg PO DAILY 01/08/18 [History] Levothyroxine 125 mcg PO DAILY 01/08/18 [History] Lisinopril 20 mg PO DAILY 01/08/18 [History] Multivitamin [Daily Multiple Vitamin] 1 tab PO DAILY 01/08/18 [History] SUMAtriptan [Imitrex] 50 mg PO ASDIRECTED PRN 01/08/18 [History] buPROPion [buPROPion XL] 450 mg PO DAILY 01/08/18 [History] traMADol [Ultram] 50 mg PO Q12H PRN 01/08/18 [History] Acetaminophen/oxyCODONE [Percocet 325-5 MG] 1 - 2 tab PO Q6H PRN #60 tablet [Rx] Aspirin [Ecotrin] 325 mg PO BID #84 tab.ec 01/10/18 [Rx] Bisacodyl [Dulcolax] 5 mg PO DAILY PRN tablet 01/10/18 [Rx] Cyclobenzaprine [Flexeril] 10 mg PO TID PRN #40 tablet 01/10/18 [Rx] Docusate Sodium [Colace] 100 mg PO BID cap 01/10/18 [Rx] Famotidine [Pepcid] 20 mg PO Q12H tablet 01/10/18 [Rx] Magnesium Hydroxide [Milk of Magnesia] 30 ml PO BID PRN cup 01/10/18 [Rx] Sennosides [Senna] 8.6 mg PO BID PRN tablet 01/10/18 [Rx] Referrals: Yessica Arevalo PA-C [[facility]] - - Patient Data Vitals - Most Recent: Last Vital Signs Temp 98.6 F 01/10/18 10:05 Pulse 104 H 01/10/18 10:05 Resp 18 01/10/18 10:05 BP 98/63 01/10/18 10:10 Pulse Ox 100 01/10/18 10:05 Weight - Most Recent: 224 lb 12.8 oz I&O - Last 24 hours: Intake & Output 01/09/18 01/10/18 01/10/18 22:59 06:59 14:59 Intake Total 350 2050 Output Total 600 1400 Balance -250 650 Lab Results - Last 24 hrs: Laboratory Results - last 24 hr 01/10/18 01/10/18 Range/Units 05:47 05:47 WBC 6.33 (3.98-10.04) K/mm3 RBC 3.27 L (3.98-5.22) M/mm3 Hgb 9.4 L (11.2-15.7) gm/L Hct 29.4 L (34.1-44.9) % MCV 89.9 (79.4-94.8) fl MCH 28.7 (25.6-32.2) pg MCHC 32.0 L (32.2-35.5) g/dl RDW Std Deviation 47.3 H (36.4-46.3) fL Plt Count 235 (182-369) K/mm3 MPV 9.7 (9.4-12.3) fl Sodium 135 L (136-145) mEq/L Potassium 4.2 (3.5-5.1) mEq/L Chloride 103 (98-107) mEq/L Carbon Dioxide 26 (21-32) mEq/L Anion Gap 10.2 (5-15) BUN 18 (7-18) mg/dL Creatinine 0.9 (0.55-1.02) mg/dL Est Cr Clr Drug Dosing 46.55 mL/min Estimated GFR (MDRD) > 60 (>60) mL/min BUN/Creatinine Ratio 20.0 H (14-18) Glucose 144 H (80-115) mg/dL Calcium 8.3 L (8.5-10.1) mg/dL Total Bilirubin 0.4 (0.2-1.0) mg/dL AST 23 (15-37) U/L ALT 20 (14-59) U/L Alkaline Phosphatase 52 (46-116) U/L Total Protein 5.1 L (6.4-8.2) g/dl Albumin 2.6 L (3.4-5.0) g/dl Globulin 2.5 gm/dL Albumin/Globulin Ratio 1.0 (1-2) Med Orders - Current: Current Medications Acyclovir (Zovirax) 400 mg PO BID [facility] Last Admin: 01/10/18 09:52 Dose: 400 mg Aspirin (Ecotrin) 325 mg PO BID [facility] Last Admin: 01/10/18 09:52 Dose: 325 mg Bisacodyl (Dulcolax) 5 mg PO DAILY PRN PRN Reason: Constipation Bupropion HCl (Wellbutrin Xl) 450 mg PO DAILY [facility] Last Admin: 01/10/18 09:52 Dose: 450 mg Calcium Carbonate (Calcium Carbonate/Vitamin D 600 Mg-200 Unit) 1 tab PO DAILY [facility] Last Admin: 01/10/18 10:06 Dose: 1 tab Cholecalciferol (Vitamin D3) 5,000 unit PO DAILY [facility] Last Admin: 01/10/18 09:53 Dose: 5,000 unit Cyclobenzaprine HCl (Flexeril) 10 mg PO TID PRN PRN Reason: Spasms Cyclobenzaprine HCl (Flexeril) 5 mg PO BID [facility] Last Admin: 01/10/18 09:53 Dose: 5 mg Docusate Sodium (Colace) 100 mg PO BID [facility] Last Admin: 01/10/18 09:53 Dose: 100 mg Duloxetine HCl (Cymbalta) 90 mg PO DAILY [facility] Last Admin: 01/10/18 09:52 Dose: 90 mg Famotidine (Pepcid) 20 mg PO Q12H [facility] Last Admin: 01/10/18 09:51 Dose: 20 mg Gabapentin (Neurontin) 100 mg PO TID [facility] Last Admin: 01/10/18 09:52 Dose: 100 mg Hydrochlorothiazide (Hydrochlorothiazide) 25 mg PO DAILY [facility] Last Admin: 01/10/18 09:52 Dose: 25 mg Ketorolac Tromethamine (Toradol) 15 mg IVPUSH Q6H PRN PRN Reason: Pain Last Admin: 01/10/18 04:05 Dose: 15 mg Levothyroxine Sodium (Levothyroxine) 125 mcg PO ACBRK [facility] Last Admin: 01/10/18 05:07 Dose: 125 mcg Lisinopril (Prinivil) 20 mg PO DAILY [facility] Last Admin: 01/10/18 10:10 Dose: 20 mg Magnesium Hydroxide (Milk Of Magnesia) 30 ml PO BID PRN PRN Reason: Constipation Morphine Sulfate (Morphine) 2 mg IVPUSH Q2H PRN PRN Reason: Breakthrough Pain Multivitamins (Thera) 1 each PO DAILY [facility] Last Admin: 01/10/18 09:51 Dose: 1 each Naloxone HCl (Narcan) 0.1 mg IVPUSH Q5M PRN PRN Reason: Oversedation Ondansetron HCl (Zofran) 4 mg IVPUSH Q6H PRN PRN Reason: Nausea/Vomiting Oxycodone/Acetaminophen (Percocet 325-5 Mg) 1 - 2 tab PO Q4H PRN PRN Reason: Pain Last Admin: 01/10/18 09:52 Dose: 2 tab Senna (Senna) 8.6 mg PO BID PRN PRN Reason: Constipation Sodium Chloride (Saline Flush) 10 ml FLUSH ASDIRECTED PRN PRN Reason: Keep Vein Open Sumatriptan Succinate (Imitrex) 50 mg PO ASDIRECTED PRN PRN Reason: Migraine Last Admin: 01/09/18 23:55 Dose: 50 mg Tramadol HCl (Ultram) 50 mg PO Q12H PRN PRN Reason: Pain Discontinued Medications Bupivacaine HCl (Marcaine 0.25%) Confirm Administered Dose 30 ml .ROUTE .STK- MED ONE Stop: 01/09/18 08:48 Last Admin: 01/09/18 12:55 Dose: 15 ml Cefazolin Sodium (Ancef) Confirm Administered Dose 2 gm .ROUTE .STK-MED ONE Stop: 01/09/18 08:48 Last Admin: 01/09/18 12:42 Dose: 2 gm Cefazolin Sodium (Ancef) Confirm Administered Dose 2 gm .ROUTE .STK-MED ONE Stop: 01/09/18 10:51 Dexamethasone (Dexamethasone) Confirm Administered Dose 20 mg .ROUTE .STK-MED ONE Stop: 01/09/18 10:53 Diphenhydramine HCl (Benadryl) 25 mg IVPUSH Q6H PRN PRN Reason: Pruritis Stop: 01/09/18 23:00 Ephedrine Sulfate (Ephedrine In Ns) Confirm Administered Dose 25 mg .ROUTE .STK- MED ONE Stop: 01/09/18 11:28 Epinephrine HCl (Adrenalin) Confirm Administered Dose 1 mg .ROUTE .STK-MED ONE Stop: 01/09/18 07:57 Fentanyl (Sublimaze) Confirm Administered Dose 250 mcg .ROUTE .STK-MED ONE Stop: 01/09/18 10:27 Fentanyl (Sublimaze) 50 mcg IVPUSH Q5M PRN PRN Reason: Pain Stop: 01/09/18 13:37 Lactated Ringer's (Ringers, Lactated) 1,000 mls @ 125 mls/hr IV ASDIRECTED [facility] Last Admin: 01/09/18 09:35 Dose: 125 mls/hr Cefazolin Sodium/Dextrose 2 gm (/ Premix) 50 mls @ 100 mls/hr IV Q8H [facility] Stop: 01/10/18 11:29 Last Admin: 01/10/18 10:09 Dose: 100 mls/hr Lidocaine HCl (Xylocaine-Mpf 1%) Confirm Administered Dose 4 mls @ as directed .ROUTE .STK-MED ONE Stop: 01/09/18 08:00 Lidocaine HCl (Xylocaine-Mpf 1%) Confirm Administered Dose 4 mls @ as directed .ROUTE .STK-MED ONE Stop: 01/09/18 11:00 Vancomycin HCl 1.5 gm/ Sodium (Chloride) 500 mls @ 333.333 mls/hr IV ONETIME ONE Stop: 01/09/18 13:29 Last Admin: 01/09/18 20:52 Dose: Not Given Sodium Chloride (Normal Saline) Confirm Administered Dose 100 mls @ as directed .ROUTE .STK-MED ONE Stop: 01/09/18 12:41 Lactated Ringer's (Ringers, Lactated) Confirm Administered Dose 1,000 mls @ as directed .ROUTE .STK-MED ONE Stop: 01/09/18 12:41 Lactated Ringer's (Ringers, Lactated) Confirm Administered Dose 1,000 mls @ as directed .ROUTE .STK-MED ONE Stop: 01/09/18 12:41 Iodine (Iodine 2% Mild Tincture) Confirm Administered Dose 30 ml .ROUTE .STK- MED ONE Stop: 01/09/18 08:48 Last Admin: 01/09/18 12:45 Dose: 18 ml Lidocaine/Sodium Bicarbonate (Buffered Lidocaine 1% In Ns 8.4%) 0.25 ml IDERM ONETIME PRN PRN Reason: Prior to IV Start Stop: 01/09/18 18:00 Last Admin: 01/09/18 09:34 Dose: 0.25 ml Meperidine HCl (Demerol) 12.5 mg IVPUSH ONETIME PRN PRN Reason: Shivering Stop: 01/09/18 20:00 Midazolam HCl (Versed 1 Mg/Ml) Confirm Administered Dose 2 mg .ROUTE .STK-MED ONE Stop: 01/09/18 10:27 Ondansetron HCl (Zofran) Confirm Administered Dose 4 mg .ROUTE .STK-MED ONE Stop: 01/09/18 10:53 Ondansetron HCl (Zofran) 4 mg IVPUSH ONETIME PRN PRN Reason: Nausea/Vomiting Stop: 01/09/18 18:00 Phenylephrine HCl (Shun-Synephrine) Confirm Administered Dose 10 mg .ROUTE .STK- MED ONE Stop: 01/09/18 12:41 Propofol (Diprivan 20 Ml) Confirm Administered Dose 200 mg .ROUTE .STK-MED ONE Stop: 01/09/18 10:27 Ropivacaine (Naropin 0.5%) Confirm Administered Dose 30 ml .ROUTE .STK-MED ONE Stop: 01/09/18 07:57 Tranexamic Acid (Cyklokapron) Confirm Administered Dose 1,000 mg .ROUTE .STK- MED ONE Stop: 01/09/18 08:48 Last Admin: 01/09/18 12:48 Dose: 1,000 mg Vancomycin HCl (Vancomycin) Confirm Administered Dose 1 gm .ROUTE .STK-MED ONE Stop: 01/09/18 08:48 Last Admin: 01/09/18 12:49 Dose: 1 gm
--- NOTE | 2018-01-10 13:24 | PCM.CONSN ---
- General Info Date of Service: 01/10/18 Admission Dx/Problem (Free Text): Admission Diagnosis/Problem Admission Diagnosis/Problem Osteoarthritis of shoulder Subjective Update: In to see Delilah. She is doing well overall. She reports that her highest pain score was a 5/10 today for which she received Percocet. Currently, her pain is controlled, and she is tolerating the pain medications. She reports sensation is intact for her right UE. She does report some chronic constipation but is not symptomatic at this time. Eating well. Denies N/V, chest pain, dyspnea, dysuria. She did have a mild anxiety attack this morning, but was able to deep breathe through it, and she did not require any medication for this. She is agreeable to discharge today. Functional Status: Reports: Pain Controlled, Tolerating Diet, Ambulating - Review of Systems General: Reports: No Symptoms. Denies: Fever, Fatigue HEENT: Reports: No Symptoms Pulmonary: Reports: No Symptoms. Denies: Shortness of Breath, Cough Cardiovascular: Reports: No Symptoms. Denies: Chest Pain, Palpitations, Edema Gastrointestinal: Reports: No Symptoms, Constipation (chronic ). Denies: Abdominal Pain, Decreased Appetite, Diarrhea, Nausea, Vomiting Genitourinary: Reports: No Symptoms. Denies: Dysuria, Frequency Musculoskeletal: Reports: No Symptoms, Shoulder Pain (s/p RSA POD #1 ) Skin: Reports: No Symptoms Neurological: Reports: No Symptoms. Denies: Confusion, Headache, Paresthesia, Tingling Psychiatric: Reports: No Symptoms, Anxiety (resolved with deep breathing this morning ). Denies: Confusion, Depression - Patient Data Vitals - Most Recent: Last Vital Signs Temp 98.6 F 01/10/18 10:05 Pulse 104 H 01/10/18 10:05 Resp 18 01/10/18 10:05 BP 98/63 01/10/18 10:10 Pulse Ox 100 01/10/18 10:05 Weight - Most Recent: 224 lb 12.8 oz I&O - Last 24 Hours: Intake & Output 01/09/18 01/10/18 01/10/18 22:59 06:59 14:59 Intake Total 350 2050 Output Total 600 1400 Balance -250 650 Lab Results Last 24 Hours: Laboratory Results - last 24 hr 01/10/18 01/10/18 Range/Units 05:47 05:47 WBC 6.33 (3.98-10.04) K/mm3 RBC 3.27 L (3.98-5.22) M/mm3 Hgb 9.4 L (11.2-15.7) gm/L Hct 29.4 L (34.1-44.9) % MCV 89.9 (79.4-94.8) fl MCH 28.7 (25.6-32.2) pg MCHC 32.0 L (32.2-35.5) g/dl RDW Std Deviation 47.3 H (36.4-46.3) fL Plt Count 235 (182-369) K/mm3 MPV 9.7 (9.4-12.3) fl Sodium 135 L (136-145) mEq/L Potassium 4.2 (3.5-5.1) mEq/L Chloride 103 (98-107) mEq/L Carbon Dioxide 26 (21-32) mEq/L Anion Gap 10.2 (5-15) BUN 18 (7-18) mg/dL Creatinine 0.9 (0.55-1.02) mg/dL Est Cr Clr Drug Dosing 46.55 mL/min Estimated GFR (MDRD) > 60 (>60) mL/min BUN/Creatinine Ratio 20.0 H (14-18) Glucose 144 H (80-115) mg/dL Calcium 8.3 L (8.5-10.1) mg/dL Total Bilirubin 0.4 (0.2-1.0) mg/dL AST 23 (15-37) U/L ALT 20 (14-59) U/L Alkaline Phosphatase 52 (46-116) U/L Total Protein 5.1 L (6.4-8.2) g/dl Albumin 2.6 L (3.4-5.0) g/dl Globulin 2.5 gm/dL Albumin/Globulin Ratio 1.0 (1-2) Med Orders - Current: Current Medications Acyclovir (Zovirax) 400 mg PO BID [facility] Last Admin: 01/10/18 09:52 Dose: 400 mg Aspirin (Ecotrin) 325 mg PO BID [facility] Last Admin: 01/10/18 09:52 Dose: 325 mg Bisacodyl (Dulcolax) 5 mg PO DAILY PRN PRN Reason: Constipation Bupropion HCl (Wellbutrin Xl) 450 mg PO DAILY [facility] Last Admin: 01/10/18 09:52 Dose: 450 mg Calcium Carbonate (Calcium Carbonate/Vitamin D 600 Mg-200 Unit) 1 tab PO DAILY [facility] Last Admin: 01/10/18 10:06 Dose: 1 tab Cholecalciferol (Vitamin D3) 5,000 unit PO DAILY [facility] Last Admin: 01/10/18 09:53 Dose: 5,000 unit Cyclobenzaprine HCl (Flexeril) 10 mg PO TID PRN PRN Reason: Spasms Cyclobenzaprine HCl (Flexeril) 5 mg PO BID [facility] Last Admin: 01/10/18 09:53 Dose: 5 mg Docusate Sodium (Colace) 100 mg PO BID [facility] Last Admin: 01/10/18 09:53 Dose: 100 mg Duloxetine HCl (Cymbalta) 90 mg PO DAILY [facility] Last Admin: 01/10/18 09:52 Dose: 90 mg Famotidine (Pepcid) 20 mg PO Q12H [facility] Last Admin: 01/10/18 09:51 Dose: 20 mg Gabapentin (Neurontin) 100 mg PO TID [facility] Last Admin: 01/10/18 09:52 Dose: 100 mg Hydrochlorothiazide (Hydrochlorothiazide) 25 mg PO DAILY [facility] Last Admin: 01/10/18 09:52 Dose: 25 mg Ketorolac Tromethamine (Toradol) 15 mg IVPUSH Q6H PRN PRN Reason: Pain Last Admin: 01/10/18 04:05 Dose: 15 mg Levothyroxine Sodium (Levothyroxine) 125 mcg PO ACBRK [facility] Last Admin: 01/10/18 05:07 Dose: 125 mcg Lisinopril (Prinivil) 20 mg PO DAILY [facility] Last Admin: 01/10/18 10:10 Dose: 20 mg Magnesium Hydroxide (Milk Of Magnesia) 30 ml PO BID PRN PRN Reason: Constipation Morphine Sulfate (Morphine) 2 mg IVPUSH Q2H PRN PRN Reason: Breakthrough Pain Multivitamins (Thera) 1 each PO DAILY [facility] Last Admin: 01/10/18 09:51 Dose: 1 each Naloxone HCl (Narcan) 0.1 mg IVPUSH Q5M PRN PRN Reason: Oversedation Ondansetron HCl (Zofran) 4 mg IVPUSH Q6H PRN PRN Reason: Nausea/Vomiting Oxycodone/Acetaminophen (Percocet 325-5 Mg) 1 - 2 tab PO Q4H PRN PRN Reason: Pain Last Admin: 01/10/18 09:52 Dose: 2 tab Senna (Senna) 8.6 mg PO BID PRN PRN Reason: Constipation Sodium Chloride (Saline Flush) 10 ml FLUSH ASDIRECTED PRN PRN Reason: Keep Vein Open Sumatriptan Succinate (Imitrex) 50 mg PO ASDIRECTED PRN PRN Reason: Migraine Last Admin: 01/09/18 23:55 Dose: 50 mg Tramadol HCl (Ultram) 50 mg PO Q12H PRN PRN Reason: Pain Discontinued Medications Bupivacaine HCl (Marcaine 0.25%) Confirm Administered Dose 30 ml .ROUTE .STK- MED ONE Stop: 01/09/18 08:48 Last Admin: 01/09/18 12:55 Dose: 15 ml Cefazolin Sodium (Ancef) Confirm Administered Dose 2 gm .ROUTE .STK-MED ONE Stop: 01/09/18 08:48 Last Admin: 01/09/18 12:42 Dose: 2 gm Cefazolin Sodium (Ancef) Confirm Administered Dose 2 gm .ROUTE .STK-MED ONE Stop: 01/09/18 10:51 Dexamethasone (Dexamethasone) Confirm Administered Dose 20 mg .ROUTE .STK-MED ONE Stop: 01/09/18 10:53 Diphenhydramine HCl (Benadryl) 25 mg IVPUSH Q6H PRN PRN Reason: Pruritis Stop: 01/09/18 23:00 Ephedrine Sulfate (Ephedrine In Ns) Confirm Administered Dose 25 mg .ROUTE .STK- MED ONE Stop: 01/09/18 11:28 Epinephrine HCl (Adrenalin) Confirm Administered Dose 1 mg .ROUTE .STK-MED ONE Stop: 01/09/18 07:57 Fentanyl (Sublimaze) Confirm Administered Dose 250 mcg .ROUTE .STK-MED ONE Stop: 01/09/18 10:27 Fentanyl (Sublimaze) 50 mcg IVPUSH Q5M PRN PRN Reason: Pain Stop: 01/09/18 13:37 Lactated Ringer's (Ringers, Lactated) 1,000 mls @ 125 mls/hr IV ASDIRECTED [facility] Last Admin: 01/09/18 09:35 Dose: 125 mls/hr Cefazolin Sodium/Dextrose 2 gm (/ Premix) 50 mls @ 100 mls/hr IV Q8H [facility] Stop: 01/10/18 11:29 Last Admin: 01/10/18 10:09 Dose: 100 mls/hr Lidocaine HCl (Xylocaine-Mpf 1%) Confirm Administered Dose 4 mls @ as directed .ROUTE .STK-MED ONE Stop: 01/09/18 08:00 Lidocaine HCl (Xylocaine-Mpf 1%) Confirm Administered Dose 4 mls @ as directed .ROUTE .STK-MED ONE Stop: 01/09/18 11:00 Vancomycin HCl 1.5 gm/ Sodium (Chloride) 500 mls @ 333.333 mls/hr IV ONETIME ONE Stop: 01/09/18 13:29 Last Admin: 01/09/18 20:52 Dose: Not Given Sodium Chloride (Normal Saline) Confirm Administered Dose 100 mls @ as directed .ROUTE .STK-MED ONE Stop: 01/09/18 12:41 Lactated Ringer's (Ringers, Lactated) Confirm Administered Dose 1,000 mls @ as directed .ROUTE .STK-MED ONE Stop: 01/09/18 12:41 Lactated Ringer's (Ringers, Lactated) Confirm Administered Dose 1,000 mls @ as directed .ROUTE .STK-MED ONE Stop: 01/09/18 12:41 Iodine (Iodine 2% Mild Tincture) Confirm Administered Dose 30 ml .ROUTE .STK- MED ONE Stop: 01/09/18 08:48 Last Admin: 01/09/18 12:45 Dose: 18 ml Lidocaine/Sodium Bicarbonate (Buffered Lidocaine 1% In Ns 8.4%) 0.25 ml IDERM ONETIME PRN PRN Reason: Prior to IV Start Stop: 01/09/18 18:00 Last Admin: 01/09/18 09:34 Dose: 0.25 ml Meperidine HCl (Demerol) 12.5 mg IVPUSH ONETIME PRN PRN Reason: Shivering Stop: 01/09/18 20:00 Midazolam HCl (Versed 1 Mg/Ml) Confirm Administered Dose 2 mg .ROUTE .STK-MED ONE Stop: 01/09/18 10:27 Ondansetron HCl (Zofran) Confirm Administered Dose 4 mg .ROUTE .STK-MED ONE Stop: 01/09/18 10:53 Ondansetron HCl (Zofran) 4 mg IVPUSH ONETIME PRN PRN Reason: Nausea/Vomiting Stop: 01/09/18 18:00 Phenylephrine HCl (Shun-Synephrine) Confirm Administered Dose 10 mg .ROUTE .STK- MED ONE Stop: 01/09/18 12:41 Propofol (Diprivan 20 Ml) Confirm Administered Dose 200 mg .ROUTE .STK-MED ONE Stop: 01/09/18 10:27 Ropivacaine (Naropin 0.5%) Confirm Administered Dose 30 ml .ROUTE .STK-MED ONE Stop: 01/09/18 07:57 Tranexamic Acid (Cyklokapron) Confirm Administered Dose 1,000 mg .ROUTE .STK- MED ONE Stop: 01/09/18 08:48 Last Admin: 01/09/18 12:48 Dose: 1,000 mg Vancomycin HCl (Vancomycin) Confirm Administered Dose 1 gm .ROUTE .STK-MED ONE Stop: 01/09/18 08:48 Last Admin: 01/09/18 12:49 Dose: 1 gm - Exam Quality Assessment: DVT Prophylaxis. No: Supplemental Oxygen General: Alert, Oriented, Cooperative, No Acute Distress HEENT: Pupils Equal, Pupils Reactive Neck: Supple, Lymphadenopathy Lungs: Clear to Auscultation, Normal Respiratory Effort Cardiovascular: Regular Rate, Regular Rhythm, No Murmurs GI/Abdominal Exam: Normal Bowel Sounds, Soft (obese ), Non-Tender, No Distention (Female) Exam: Deferred Back Exam: Normal Inspection, Full Range of Motion Extremities: Arm Pain (s/p RSA POD #1 ), Limited Range of Motion (s/p RSA POD # 1 ), Other (bruising noted to right shoulder (s/p RSA POD #1) ). No: Pedal Edema Peripheral Pulses: 2+: Radial (L), Radial (R), Posterior Tibial (L), Posterior Tibial (R), Dorsalis Pedis (L), Dorsalis Pedis (R) Skin: Warm, Dry Wound/Incisions: Dressing Dry and Intact, Other (bruising (s/p RSA POD #1) ) Neurological: No New Focal Deficit Psy/Mental Status: Alert, Normal Affect, Normal Mood Consult PN Assessment/Plan POD#: 1 Procedures: Procedures ANTINUCLEAR ANTIBODIES (03/13/17) ASSAY OF FREE THYROXINE (10/31/16) ASSAY OF PREALBUMIN (12/27/17) ASSAY OF TROPONIN QUANT (04/17/17) ASSAY THYROID STIM HORMONE (12/27/17) ASSAY TRIIODOTHYRONINE (T3) (07/27/16) C-REACTIVE PROTEIN (03/13/17) COMPLETE CBC AUTOMATED (12/27/17) COMPLETE CBC W/AUTO DIFF WBC (08/20/17) COMPREHEN METABOLIC PANEL (12/27/17) CT ANGIOGRAPHY CHEST (04/17/17) DXA BONE DENSITY AXIAL (08/20/17) ELECTROCARDIOGRAM TRACING (08/20/17) EXTRACRANIAL BILAT STUDY (04/24/17) FIBRIN DEGRADATION QUANT (04/17/17) GLYCOSYLATED HEMOGLOBIN TEST (12/27/17) LIPID PANEL (04/24/17) METABOLIC PANEL TOTAL CA (06/14/17) MR-STAPH DNA AMP PROBE (08/17/17) OFFICE/OUTPATIENT VISIT EST (08/20/17) OFFICE/OUTPATIENT VISIT EST (03/23/17) OFFICE/OUTPATIENT VISIT EST (08/03/16) PROTHROMBIN TIME (12/27/17) RBC SED RATE AUTOMATED (03/13/17) RHEUMATOID FACTOR TEST QUAL (03/13/17) ROUTINE VENIPUNCTURE (12/27/17) THROMBOPLASTIN TIME PARTIAL (12/27/17) UR ALBUMIN SEMIQUANTITATIVE (06/14/17) URINALYSIS AUTO W/SCOPE (12/27/17) URINE CULTURE/COLONY COUNT (04/17/17) US EXAM ABDO BACK WALL PEREZ (04/24/17) VIT D 1 25-DIHYDROXY (08/20/17) VITAMIN D 25 HYDROXY (04/17/17) X-RAY EXAM CHEST 2 VIEWS (08/20/17) X-RAY EXAM NECK SPINE 2-3 VW (10/31/16) (1) Osteoarthritis SNOMED Code(s): 638035801 Code(s): M19.90 - UNSPECIFIED OSTEOARTHRITIS, UNSPECIFIED SITE Priority: High Current Visit: Yes Qualifiers: Osteoarthritis location: shoulder Osteoarthritis type: unspecified Laterality: bilateral Qualified Code(s): M19.011 - Primary osteoarthritis, right shoulder; M19.012 - Primary osteoarthritis, left shoulder (2) Status post total shoulder arthroplasty SNOMED Code(s): 831681565, 544057220 Code(s): Z96.619 - PRESENCE OF UNSPECIFIED ARTIFICIAL SHOULDER JOINT Priority: High Current Visit: Yes Qualifiers: Laterality: right Qualified Code(s): Z96.611 - Presence of right artificial shoulder joint Problem List Initiated/Reviewed/Updated: Yes Plan: I/P: Acute: S/P right total shoulder arthroplasty - post-operative day 1 -DVT prophylaxis and pain management per primary care team -PT/OT -IS/RT -Monitor oxygen saturation -Titrate oxygen as needed -Vital signs stable -Monitor labs - Hgb 9.4 Osteoarthritis of shoulders, bilateral -Pain management per primary care team Chronic: HTN Hepatitis C History of MRSA Depression Anxiety Migraines Morbid obesity Plan: CM for discharge planning GI prophylaxis: Pepcid DVT/PE prophylaxis: AMANDA bailey, SCD, ASA Home medications as indicated Other orders as listed above Routine AM labs She is a full code. Her PCP is Yudelka Castelan PA-C. Thank you for allowing us to participate in the care of this patient!! From a hospitalist standpoint, this patient is ready for discharge.
--- NOTE | 2018-01-11 07:24 | PCM48HPAN ---
Post Anesthesia Note - EVALUATION WITHIN 48HRS OF ANESTHETIC Vital Signs in Normal Range: Yes Patient Participated in Evaluation: No (discharged. Chart reviewed and visit with nurse) Respiratory Function Stable: Yes Airway Patent: Yes Cardiovascular Function Stable: Yes Hydration Status Stable: Yes Pain Control Satisfactory: Yes Nausea and Vomiting Control Satisfactory: Yes Mental Status Recovered: Yes Pulse Rate: 94 Resp Rate: 16 Temperature: 99.0 F Blood Pressure: 116/60
--- NOTE | 2018-01-15 07:16 | PCM.OPNOTE ---
- General Post-Op/Procedure Note Date of Surgery/Procedure: 01/09/18 Operative Procedure(s): right reverse total shoulder arthroplasty Pre Op Diagnosis: right shoulder rotator cuff tear arthropathy Post-Op Diagnosis: Same Anesthesia Technique: General ET Tube, Regional Block Primary Surgeon: Augusto Henry Anesthesia Provider: Tin Rodriguez Senior Mobile Web Developer: Yessica Arevalo Senior Mobile Web Developer: Anisha Sidhu EBL in mLs: 1,000 Complications: None Condition: Good
--- NOTE | 2018-01-15 08:29 | OR ---
DATE OF OPERATION: 01/09/2018 SURGEON: Augusto Henry MD OPERATION PERFORMED: Right reverse total shoulder arthroplasty. PREOPERATIVE DIAGNOSIS: Right shoulder rotator cuff tear arthropathy. POSTOPERATIVE DIAGNOSIS: Right shoulder rotator cuff tear arthropathy. ANESTHESIA: General endotracheal intubation with regional interscalene block. ANESTHESIA PROVIDER: Tin Rodriguez. ASSISTANTS: Yessica Arevalo PA-C and Anisha Sidhu LPN. ESTIMATED BLOOD LOSS: 1000 mL. COMPLICATIONS: None. CONDITION: Stable. IMPLANTS: 1. Arthrex size 5 humeral stem, 135 degrees. 2. Arthrex size small glenoid baseplate. 3. Arthrex 36 + 4 mm Glenosphere. 4. Arthrex 3 mm polyethylene liner. DESCRIPTION OF PROCEDURE: The patient was identified in the preoperative holding area. Proper site was marked and identified by the surgeon. The patient was then taken back to the operating theater, where after adequate anesthesia, the patient's right upper extremity was sterilely prepped and draped in the usual sterile fashion. OR time-out was performed. The patient received 2 g of IV Ancef. Standard deltopectoral incision was then made and taken down to the cephalic vein. Cephalic vein was identified and deltopectoral interval was identified, this was taken down. All subacromial adhesions as well as subdeltoid adhesions were then broken up at this time. The clavipectoral fascia was incised and the conjoined tendon was retracted medially. Anterior humeral circumflex vessels were then identified and were ligated using 0 Vicryl stick tie. Biceps tendon was identified and was resected, and a subpectoral tenodesis was performed. An Allis clamp was used to secure the proximal portion of the biceps tendon, and Avery scissors were used to open the interval all the way back up to the level of the glenoid. At this time, the biceps tendon was resected and peel back of the subscapularis tendon in what portions were not already torn, was done at this time. Humeral head was then completely visualized and a guide pin was placed centrally. Starter awl was placed and then neck cut guide was then completed in 30 degrees of retroversion. Attention was turned to the glenoid, a Fukuda retractor was placed posteriorly and a Hohmann was placed anteriorly. A pituitary and Bovie were then used to resect remaining labrum as well as excess capsule. At this time, once there was adequate visualization of the glenoid, guide pin was placed in a central position. The central reamer was then used and then the peripheral reamer was then used for a small glenoid baseplate, this was found to have adequate reaming at this time. At this time, a small glenoid baseplate was then impacted into place and the central nonlocking screw was placed. An inferior and superior locking screw was then placed in divergent fashion, this was found to have adequate fixation on the glenoid. Attention was turned back to the humerus and a size 5 broach was then used, it was found to be rotationally and vertically stable. At this time, a size 5, 135-degree Arthrex stem was then constructed on the back table and had a 3 mm polyethylene applied. Before this was implanted, a 36 + 4 mm Glenosphere was then implanted and impacted into place and was found to have secure fixation. At this time, the humeral stem was then impacted into place along with polyethylene liner and the shoulder was reduced. C-arm fluoroscopy was utilized to make sure that all parts were in proper position and it was shown to have good motion throughout range of motion. At this time, 1 L dilute Betadine solution along with 3 L of pulse lavage irrigation with Ancef were irrigated through the shoulder. Topical tranexamic acid as well as vancomycin powder was applied. The deltopectoral interval was tagged using FiberWire. A 2-0 Vicryl was used subcutaneously and Prineo was used for the skin. The patient was placed in a sterile soft dressing and a pillow sling and sent to PACU in stable condition. MMODAL /[id number]
== END 2018-01-10 15:46 | disposition home or self-care (01) | DRG 483 ==
LOC: EDSTATUS 01-09 08:00 → JD.MS 01-09 08:42
PROVIDERS: ADMIT Orthopaedic Surgery; ATTEND Orthopaedic Surgery
PROC: 0RRJ00Z Replacement of Right Shoulder Joint with Reverse Ball and Socket Synthetic Substitute, Open Approach (ICD-10-PCS; principal; 2018-01-09)
PROC: 3E0T3BZ Introduction of Anesthetic Agent into Peripheral Nerves and Plexi, Percutaneous Approach (ICD-10-PCS; 2018-01-09)
DX: M19.011 Primary osteoarthritis, right shoulder (principal); Z68.41 Body mass index [BMI] 40.0-44.9, adult; F41.9 Anxiety disorder, unspecified; E66.01 Morbid (severe) obesity due to excess calories; F32.9 Major depressive disorder, single episode, unspecified; I10 Essential (primary) hypertension; B19.20 Unspecified viral hepatitis C without hepatic coma; G43.909 Migraine, unspecified, not intractable, without status migrainosus; E03.9 Hypothyroidism, unspecified; E55.9 Vitamin D deficiency, unspecified; J30.9 Allergic rhinitis, unspecified; Z86.14 Personal history of Methicillin resistant Staphylococcus aureus infection; Z79.899 Other long term (current) drug therapy
CPT/HCPCS: 01638; 36415; 64415; 73020-26-RT; 73020-RT; 76000; 76000-26; 80053; 85027; 87641; 97110-GP; 97116-GP; 97140-GP; 97161-GP; 97165-GO; 97166-GO; 97535-GO; A9270-GY; C1713; C1776; J0171; J0690; J1100; J1885; J2001; J2250; J2370; J2405; J2704; J2795; J3010; J3370; J3490; J7030; J7050; J7120

== ENCOUNTER 2019-04-29 10:05 | Emergency (ER) | payer MEDICARE ==
--- NOTE | 2019-04-29 10:43 | EDM.PDOC ---
ED HPI GENERAL MEDICAL PROBLEM - General Chief Complaint: Respiratory Problem Stated Complaint: SOB/SWEATING Time Seen by Provider: 04/29/19 10:33 Source of Information: Reports: Patient History Limitations: Reports: No Limitations - History of Present Illness INITIAL COMMENTS - FREE TEXT/NARRATIVE: 63-year-old female presents to the ED diaphoretic and very short of breath on minimal exertion. She states was gradually getting worse over the last 3-4 days particularly over the weekend. Yesterday seemed to be a bit better. Patient has been prescribed Lasix and potassium supplementation over the last few weeks which hasn't taken any for the last 12 days as her feet and legs seem to be improved. She seemed to retain fluid after receiving a cortisone shot in her shoulder and knee. She has no past history of DVT. She is working hard to breathe with respiratory rate of 22-28/m. Some of this I perceived to be anxiety. Sats are 100% on room air. Patient is morbidly obese. She's been having troubles with diffuse intermittent abdominal cramping pain had some bleeding per rectum on Sunday times for bowel movements but none since. Just say lower rectal problem either internal hemorrhoids or anal fissure. She does not appear anemic. She is not diabetic. His tachycardia at rest 112/m. Blood pressure is normal. She normally sleeps propped up on a large pillow. She rarely lies flat to sleep. She has no history of asthma. Off fever. She is diaphoretic and cool and clammy on presentation to the ED. Onset: Gradual Onset Date: 04/25/19 Duration: Day(s):, Getting Worse Location: Reports: Chest Quality: Reports: Other Severity: Moderate (Dyspnea. No real pressure in her chest. Moderate to severe) Improves with: Reports: Rest Worsens with: Reports: Movement (Worse on exertion.) Context: Denies: Activity ( Also worse if she lies flat.), Exercise, Sick Contact, Trauma, Other Associated Symptoms: Reports: Diaphoresis, Shortness of Breath. Denies: No Other Symptoms, Confusion, Chest Pain, Cough, cough w sputum, Fever/Chills, Headaches, Loss of Appetite, Malaise, Nausea/Vomiting, Rash, Seizure, Syncope, Weakness Treatments [employer]OPS: Reports: Other (see below) (She did take her Lasix tablet this morning but the first time in 12 days.) - Related Data Allergies Allergy/AdvReac Type Severity Reaction Status Date / Time No Known Allergies Allergy Verified 04/29/19 10:19 Home Meds: Home Meds RX: Acyclovir 400 mg PO BID 01/08/18 [History] RX: Calcium Carbonate/Vitamin D3 [Calcium 600 + Vit D Tablet] 1 tab PO DAILY [History] RX: Cholecalciferol (Vitamin D3) [Vitamin D3] 5,000 unit PO DAILY 01/08/18 [ History] RX: DULoxetine [Cymbalta] 90 mg PO DAILY 01/08/18 [History] RX: Gabapentin [Neurontin] 100 mg PO TID 01/08/18 [History] RX: Levothyroxine 125 mcg PO DAILY 01/08/18 [History] RX: Lisinopril 20 mg PO DAILY 01/08/18 [History] RX: Multivitamin [Daily Multiple Vitamin] 1 tab PO DAILY 01/08/18 [History] RX: SUMAtriptan [Imitrex] 50 mg PO ASDIRECTED PRN 01/08/18 [History] RX: buPROPion [buPROPion XL] 450 mg PO DAILY 01/08/18 [History] RX: hydroCHLOROthiazide [Hydrochlorothiazide] 25 mg PO DAILY 01/08/18 [History] RX: traMADol [Ultram] 50 mg PO Q12H PRN 01/08/18 [History] RX: Acetaminophen/oxyCODONE [Percocet 325-5 MG] 1 - 2 tab PO Q6H PRN #60 tablet 01/10/18 [Rx] RX: Aspirin [Ecotrin EC] 325 mg PO BID #84 tab.ec 01/10/18 [Rx] RX: Bisacodyl [Dulcolax] 5 mg PO DAILY PRN tablet 01/10/18 [Rx] RX: Cyclobenzaprine [Flexeril] 10 mg PO TID PRN #40 tablet 01/10/18 [Rx] RX: Docusate Sodium [Colace] 100 mg PO BID cap 01/10/18 [Rx] RX: Famotidine [Pepcid] 20 mg PO Q12H tablet 01/10/18 [Rx] RX: Magnesium Hydroxide [Milk of Magnesia] 30 ml PO BID PRN cup 01/10/18 [Rx] RX: Sennosides [Senna] 8.6 mg PO BID PRN tablet 01/10/18 [Rx] LORazepam [Ativan] 1 mg PO Q6H #10 tab 04/29/19 [Rx] Past Medical History HEENT History: Reports: Allergic Rhinitis Other HEENT History: Hearing loss Cardiovascular History: Reports: Hypertension Other Respiratory History: Cough Gastrointestinal History: Reports: None Genitourinary History: Reports: None [employer] 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 Immunologic History: Reports: None Oncologic (Cancer) History: Reports: None Dermatologic History: Reports: None - Infectious Disease History Infectious Disease History: Reports: Hepatitis C, MRSA, Other (See Below) Other Infectious Disease History: Patient reports herpes - Past Surgical History Head Surgeries/Procedures: Reports: None HEENT Surgical History: Reports: Other (See Below) Other HEENT Surgeries/Procedures: [place] tooth extraction Cardiovascular Surgical History: Reports: None Respiratory Surgical History: Reports: None GI Surgical History: Reports: None Female Surgical History: Reports: Section Endocrine Surgical History: Reports: None Neurological Surgical History: Reports: None Other Musculoskeletal Surgeries/Procedures:: Bunion correction Oncologic Surgical History: Reports: None Dermatological Surgical History: Reports: None Social & Family History - Caffeine Use Caffeine Use: Reports: Coffee, Tea Other Caffeine Use: rarely coffee, tea every day - Living Situation & Occupation Living situation: Reports: Occupation: Retired [facility] [employer] [facility] - Review of Systems Review Of Systems: See Below Constitutional: Reports: Malaise, Weakness, Fatigue, Decreased Appetite. Denies : Fever, Chills HEENT: Reports: No Symptoms Respiratory: Reports: Shortness of Breath. Denies: Wheezing, Pleuritic Chest Pain, Cough, Sputum, Hemoptysis Cardiovascular: Reports: Blood Pressure Problem, Dyspnea on Exertion (Usually has some edema in her lower extremities but better today.), Edema, Lightheadedness, Orthopnea. Denies: Chest Pain, Claudication Endocrine: Reports: Fatigue ( Severe on minimal exertion.) GI/Abdominal: Reports: Abdominal Pain (Intermittent crampy abdominal pain.), Constipation, Hematochezia (Recent bleeding per rectum 4 on Sunday, April 26 but nothing since. This suggests a low rectal problem such as internal hemorrhoids or anal fissure. She denies any rectal pain with bowel movement.) : Reports: Frequency. Denies: Dysuria Musculoskeletal: Reports: Neck Pain ( Often ridge's seems steroid shots in her knees and shoulders.), Shoulder Pain (Chronic pain in her shoulders knees back and neck.), Joint Pain Skin: Reports: Bruising (Bruises fairly easily.) Neurological: Reports: No Symptoms Psychiatric: Reports: No Symptoms Hematologic/Lymphatic: Reports: No Symptoms Immunologic: Reports: No Symptoms ED EXAM, GENERAL - Physical Exam Exam: See Below Exam Limited By: No Limitations General Appearance: Alert, WD/WN, Moderate Distress, Other (Afebrile temperature 35.9. Patient is cool and clammy to touch. Resting tachycardia of 1 12/m. Respiratory rate of 22-30/m. O2 sats maintained 100%. BP 09/02/76.) Eye Exam: Bilateral Eye: Normal Inspection Throat/Mouth: Normal Inspection, Normal Lips, Normal Teeth, Normal Oropharynx Head: Atraumatic, Other Neck: Normal Inspection, Supple, Non-Tender, Full Range of Motion, Limited Range of Motion, Tender Lateral (Tender bilateral aspect of the neck.). No: Lymphadenopathy (L), Lymphadenopathy (R) Respiratory/Chest: Lungs Clear ( Maintaining O2 sats 100%.), Normal Breath Sounds, No Accessory Muscle Use, Respiratory Distress (Marked tachypnea at rest 30/m.). No: Rales, Rhonchi, Wheezing Cardiovascular: Regular Rate, Rhythm, No Edema, No Gallop, No Murmur, No Rub Peripheral Pulses: 1+: Posterior Tibial (L), Posterior Tibial (R), Dorsalis Pedis (L), Dorsalis Pedis (R) GI/Abdominal: Normal Bowel Sounds, Soft, Non-Tender, No Organomegaly, No Abnormal Bruit, No Mass, Pelvis Stable, Other (Abdominal girth limits ability to palpate solid organs.) Extremities: Normal Inspection, Normal Range of Motion, Non-Tender Neurological: Oriented, CN II-XII Intact, Normal Cognition Psychiatric: Normal Affect, Normal Mood Skin Exam: Warm, Dry, Intact, Normal Color, No Rash EKG INTERPRETATION EKG Date: 04/29/19 Time: 10:24 Rhythm: NSR Rate (Beats/Min): 99 [place]: Normal P-Wave: Present QRS: Other (There are Q waves in leads 3 and aVF cannot rule out an old inferior wall myocardial infarction) ST-T: Other (Diffuse early repolarization pattern.) QT: Prolonged (Mildly prolonged.) EKG Interpretation Comments: Borderline ECG Course - Vital Signs Last Recorded V/S: Last Vital Signs Temp 35.9 C 04/29/19 10:15 Pulse 112 H 04/29/19 10:15 Resp 30 H 04/29/19 10:15 BP 121/77 04/29/19 10:15 Pulse Ox 100 04/29/19 10:15 - Orders/Labs/Meds Orders: Active Orders 24 hr Category Date Time Status EKG Documentation Completion [RC] STAT Care 04/29/19 10:43 Active Orthostatic Vital Signs [RC] ASDIRECTED Care 04/29/19 10:48 Active Oxygen Therapy [RC] ASDIRECTED Care 04/29/19 12:14 Active Labs: Laboratory Tests 04/29/19 04/29/19 04/29/19 Range/Units 10:31 10:34 10:34 WBC 9.53 (3.98-10.04) K/mm3 RBC 4.76 (3.98-5.22) M/mm3 Hgb 13.7 (11.2-15.7) gm/dl Hct 42.1 (34.1-44.9) % MCV 88.4 (79.4-94.8) fl MCH 28.8 (25.6-32.2) pg MCHC 32.5 (32.2-35.5) g/dl RDW Std Deviation 48.2 H (36.4-46.3) fL Plt Count 242 (182-369) K/mm3 MPV 9.1 L (9.4-12.3) fl Neut % (Auto) 77.8 H (34.0-71.1) % Lymph % (Auto) 15.9 L (19.3-51.7) % Andrews % (Auto) 5.5 (4.7-12.5) % Eos % (Auto) 0.5 L (0.7-5.8) Baso % (Auto) 0.1 (0.1-1.2) % Neut # (Auto) 7.41 H (1.56-6.13) K/mm3 Lymph # (Auto) 1.52 (1.18-3.74) K/mm3 Andrews # (Auto) 0.52 H (0.24-0.36) K/mm3 Eos # (Auto) 0.05 (0.04-0.36) K/mm3 Baso # (Auto) 0.01 (0.01-0.08) K/mm3 PT 10.3 (9.7-12.0) SECONDS INR 0.94 APTT 26 D (22-31) SECONDS D-Dimer, Quantitative 0.92 H (0.19-0.50) mg/L Sodium (136-145) mEq/L Potassium (3.5-5.1) mEq/L Chloride (98-107) mEq/L Carbon Dioxide (21-32) mEq/L Anion Gap (5-15) BUN (7-18) mg/dL Creatinine (0.55-1.02) mg/dL Est Cr Clr Drug Dosing mL/min Estimated GFR (MDRD) (>60) mL/min BUN/Creatinine Ratio (14-18) Glucose (80-115) mg/dL POC Glucose 109 (80-115) mg/dL Calcium (8.5-10.1) mg/dL Magnesium (1.8-2.4) mg/dl Total Bilirubin (0.2-1.0) mg/dL AST (15-37) U/L ALT (14-59) U/L Alkaline Phosphatase (46-116) U/L CK-MB (CK-2) (0-3.6) ng/ml Troponin I (0.00-0.056) ng/mL C-Reactive Protein (<1.0) mg/dL NT-Pro-B Natriuret Pep (0-125) pg/mL Total Protein (6.4-8.2) g/dl Albumin (3.4-5.0) g/dl Globulin gm/dL Albumin/Globulin Ratio (1-2) Urine Color (Yellow) Urine Appearance (Clear) Urine pH (5.0-8.0) Ur Specific [place] (1.005-1.030) Urine Protein (Negative) Urine Glucose (UA) (Negative) Urine Ketones (Negative) Urine Occult Blood (Negative) Urine Nitrite (Negative) Urine Bilirubin (Negative) Urine Urobilinogen (0.2-1.0) Ur Leukocyte Esterase (Negative) Urine RBC (0-5) /hpf Urine WBC (0-5) /hpf Ur Epithelial Cells (0-5) /hpf Urine Bacteria (FEW) /hpf Hyaline Casts (0-5) /lpf Urine Mucus (FEW) /hpf 04/29/19 04/29/19 04/29/19 Range/Units 10:34 10:34 12:45 WBC (3.98-10.04) K/mm3 RBC (3.98-5.22) M/mm3 Hgb (11.2-15.7) gm/dl Hct (34.1-44.9) % MCV (79.4-94.8) fl MCH (25.6-32.2) pg MCHC (32.2-35.5) g/dl RDW Std Deviation (36.4-46.3) fL Plt Count (182-369) K/mm3 MPV (9.4-12.3) fl Neut % (Auto) (34.0-71.1) % Lymph % (Auto) (19.3-51.7) % Andrews % (Auto) (4.7-12.5) % Eos % (Auto) (0.7-5.8) Baso % (Auto) (0.1-1.2) % Neut # (Auto) (1.56-6.13) K/mm3 Lymph # (Auto) (1.18-3.74) K/mm3 Andrews # (Auto) (0.24-0.36) K/mm3 Eos # (Auto) (0.04-0.36) K/mm3 Baso # (Auto) (0.01-0.08) K/mm3 PT (9.7-12.0) SECONDS INR APTT (22-31) SECONDS D-Dimer, Quantitative (0.19-0.50) mg/L Sodium 138 (136-145) mEq/L Potassium 4.8 (3.5-5.1) mEq/L Chloride 106 (98-107) mEq/L Carbon Dioxide 24 (21-32) mEq/L Anion Gap 12.8 (5-15) BUN 31 H (7-18) mg/dL Creatinine 1.1 H (0.55-1.02) mg/dL Est Cr Clr Drug Dosing 37.60 mL/min Estimated GFR (MDRD) 50 (>60) mL/min BUN/Creatinine Ratio 28.2 H (14-18) Glucose 105 (80-115) mg/dL POC Glucose (80-115) mg/dL Calcium 9.5 (8.5-10.1) mg/dL Magnesium 2.1 (1.8-2.4) mg/dl Total Bilirubin 0.6 (0.2-1.0) mg/dL AST 12 L (15-37) U/L ALT 22 (14-59) U/L Alkaline Phosphatase 85 (46-116) U/L CK-MB (CK-2) 3.2 (0-3.6) ng/ml Troponin I < 0.017 (0.00-0.056) ng/mL C-Reactive Protein 1.4 H* (<1.0) mg/dL NT-Pro-B Natriuret Pep 37 (0-125) pg/mL Total Protein 6.8 (6.4-8.2) g/dl Albumin 3.2 L (3.4-5.0) g/dl Globulin 3.6 gm/dL Albumin/Globulin Ratio 0.9 L (1-2) Urine Color Yellow (Yellow) Urine Appearance Clear (Clear) Urine pH 6.0 (5.0-8.0) Ur Specific [place] 1.020 (1.005-1.030) Urine Protein Negative (Negative) Urine Glucose (UA) Negative (Negative) Urine Ketones Negative (Negative) Urine Occult Blood Negative (Negative) Urine Nitrite Negative (Negative) Urine Bilirubin Negative (Negative) Urine Urobilinogen 0.2 (0.2-1.0) Ur Leukocyte Esterase Negative (Negative) Urine RBC 0-5 (0-5) /hpf Urine WBC 0-5 (0-5) /hpf Ur Epithelial Cells 0-5 (0-5) /hpf Urine Bacteria Not seen (FEW) /hpf Hyaline Casts 0-5 (0-5) /lpf Urine Mucus Not seen (FEW) /hpf Meds: Medications Discontinued Medications Generic Name Dose Route Start Last Admin Trade Name Adriane PRN Reason Stop Dose Admin Sodium Chloride 100 mls @ 60 mls/hr 04/29/19 12:15 04/29/19 12:50 Normal Saline IV 60 mls/hr ASDIRECTED NICOLASA Administration Iopamidol 100 ml 04/29/19 12:11 04/29/19 12:49 Isovue-370 (76%) IVPUSH 04/29/19 12:12 100 ml ONETIME ONE Administration Magnesium Citrate 240 ml 04/29/19 14:23 04/29/19 14:35 Citrate Of Magnesia PO 04/29/19 14:24 240 ml ONETIME ONE Administration Sodium Chloride 10 ml 04/29/19 12:11 04/29/19 12:49 Saline Flush FLUSH 04/29/19 12:12 10 ml ONETIME ONE Administration - Radiology Interpretation Free Text/Narrative:: 63-year-old female presents to the ED with marked dyspnea on minimal exertion. She states it's been going on for the last 4-5 days seem to be somewhat better yesterday but worse again today. She has orthopnea cannot lay flat has been sleeping with a pillow propping her up on the couch. Fever or chills. Feels that she just came get a full deep breath. Of previous PE. She is morbidly obese and therefore at risk. She did have some chronic edema in both lower extremities improved with Lasix daily. She took one this morning but had been off for 12 days prior to this as well as her potassium supplement. She has chronic post constipation has intermittent abdominal cramping pain did have some bleeding per rectum 4 stools on Sunday but none since. Examination reveals tachypnea and tachycardia at the bedside. Sats are 100% on room air. Plan routine labs to be done to include a d-dimer. Cardiac function. One view chest x-ray ECG to be done. Saline lock will be placed. - Re-Assessments/Exams Free Text/Narrative Re-Assessment/Exam: 04/29/19 11:16 lab called over and her d-dimer is mildly elevated at 0.91. I will await her renal function before proceeding with CT of the chest. Her ECG does not show any signs of ischemia. 04/29/19 11:17 chest x-ray portable technique is essentially normal. Normal cardiac silhouette visualized portion of the lung damon are clear with no pleural effusions or signs of vascular congestion. X-ray of the abdomen shows increased stool throughout the right hemicolon and the left descending colon compatible with constipation. There are no air-fluid levels to suggest bowel obstruction. 04/29/19 11:44 White count came back at 9.53. Slight left shift with 78% neutrophils. Hemoglobin is 13.7 with hematocrit of 42.1. Platelet count 242, 000. PT is 10.3 with an INR of 0.94. PTT is 26 d-dimer is mildly elevated at 0.92. Normal are lab is up to 0.50. Glucose was 109. BNP is 37. Chemistry is pending 04/29/19 12:07 Chemistry is back and shows a sodium of 138. Potassium 4.8. Chloride 106 with a bicarbonate 24. Anion gap is 12.8. BUN is mildly elevated at 31 with a creatinine of 1.1. EGFR is greater than 50. Glucose is 105. Calcium 9.5 with a magnesium of 2.1. Total bilirubin 0.6. AST is 12 ALT is 22. Alkaline phosphatase normal at 85. CK-MB fraction is 3.2 troponin I is less than 0.017. C-reactive protein is 1.4. Total protein 6.8 with slightly low albumin fraction 3.2. Discussed the findings with the patient and actually her oxygen saturations dropped to 85--86% ?while I was in the room. We therefore had to place her on O2 at 2 L/m. This achieved oxygen sats 100% fairly promptly. Patient will therefore have a CT pulmonary and gram performed due to elevated d-dimer with resting tachycardia and tachypnea at time of presentation. 04/29/19 13:29 CT pulmonary angiograms with in normal limits showing no signs of pulmonary embolism. Her blood pressure is 118/76. To take her off her oxygen CO she does. Her labs do not show anything abnormal suggesting that she may well just been experiencing a panic attack. I discussed this with her and she has good insight into having a lot of anxiety in her life and stressors. It makes sense to her. Made to place her on Ativan 1 mg on a every 8 hour when necessary basis for anxiety relief. 10 tablets were provided. She has plans to follow-up with her psychiatrist in the next week to 10 days. Departure - Departure Time of Disposition: 14:06 Disposition: Home, Self-Care 01 Condition: Fair Clinical Impression: Acute dyspnea, Panic attack - Discharge Information *PRESCRIPTION DRUG MONITORING PROGRAM REVIEWED*: Not Applicable *COPY OF PRESCRIPTION DRUG MONITORING REPORT IN PATIENT ROSELIA: Not Applicable Prescriptions: LORazepam [Ativan] 1 mg PO Q6H #10 tab Instructions: Panic Attack, [id number] Referrals: PCP,None [Primary Care Provider] - Forms: ED Department Discharge Additional Instructions: Evaluation the emergency room today in regards to presentation with marked shortness of breath and hyperventilation syndrome. You came into the ED her blood pressure was elevated a resting heart rate was 1 12/m and your breathing rate was anywhere from 22-30/m. Her oxygen saturation was maintained at 100%. The lungs are clear to auscultation percussion without any signs of wheezing. No evidence of fever on exam. Test x-ray proved to be normal with no signs of fluid in the lungs and normal-sized heart. ECG revealed sinus rhythm at 99/m with no signs of any heart related illness. One test done revealed no evidence of extra fluid build up in the lungs and no signs of heart related illness. The d-dimer which is a measuring stick for clotting came back slightly elevated at 0.92. Your age would be up to 0.63. Therefore the possibility existed of you having blood clots in her lungs as a cause of your shortness of breath and rapid heart rate. CT scan of the chest was performed and is read completely normal with no sign of any blood clots in the lungs and normal-sized heart etc. It therefore appears that today's episode of rapid breathing and shortness of breath was due to anxiety attack or panic attack. Us can happen out of the blue for no apparent reason. It is likely to happen the future and it may well of happen in the past. Treatment for this is usually Ativan 1 mg strength and symptoms usually liza on their own over a period of half hour to 40 minutes. In regards to the abdominal pain this appears to be secondary to constipation which you have had chronic problems with. X-ray of the abdomen shows a large amount of stool throughout the right hemicolon portions of the transverse colon which travels across her upper abdomen and most of the descending or left-sided colon is stool-filled as well. The rectal vault was empty. Even with magnesium citrate 8 ounces taken with 6 ounces of juice of choice by mouth once. This usually starts to work in 1-2 hours in the bowels will usually more work 3 or 4 times ending in bowel cleanse and usually some mild diarrhea. Constipation is a chronic problem for you suggest strongly MiraLAX powder 17 g 1 scoop every day to prevent constipation from occurring. The constipation issues are mostly secondary to the medications you're taking. They're slowing the bowel motility down. - My Orders Last 24 Hours: My Active Orders 04/29/19 10:43 EKG Documentation Completion [RC] STAT 04/29/19 10:48 Orthostatic Vital Signs [RC] ASDIRECTED 04/29/19 12:14 Oxygen Therapy [RC] ASDIRECTED - Assessment/Plan Last 24 Hours: My Active Orders 04/29/19 10:43 EKG Documentation Completion [RC] STAT 04/29/19 10:48 Orthostatic Vital Signs [RC] ASDIRECTED 04/29/19 12:14 Oxygen Therapy [RC] ASDIRECTED
--- NOTE | 2019-04-29 11:45 | CR ---
Abdomen: Supine view of the abdomen was obtained. Comparison: No prior abdominal imaging. Bowel gas pattern is normal. Degenerative change is scattered within the spine with mild scoliosis. No soft tissue abnormality is seen. No abnormal calcifications are seen. Impression: 1. Degenerative change and scoliosis within the spine. 2. Nothing acute is seen on supine abdominal x-ray. Diagnostic code #2
--- NOTE | 2019-04-29 11:45 | CR ---
Chest: Portable view of the chest was obtained. Comparison: Prior chest x-ray of 03/20/19. Right shoulder prosthesis is seen. Appearance of left shoulder rotator cuff tear. Heart size and mediastinum are within normal limits for portable technique. Lungs are clear with no acute parenchymal change. Impression: 1. Findings believed to be incidental as described above. 2. Nothing acute is appreciated on portable chest x-ray. Diagnostic code #2
[2019-04-29] MEDS ORDERED: Sodium Chloride 0.9% 10 ML Syringe FLUSH ONE (12:11)
[2019-04-29] MEDS ORDERED: Iopamidol 755 Mg/ML 100 ML Bottle IVPUSH ONE (12:11)
[2019-04-29] MEDS ORDERED: Sodium Chloride 0.9% 100 ML IV SCH (12:15)
--- NOTE | 2019-04-29 13:29 | CT ---
CT chest Technique: Multiple axial sections through the chest were obtained. Intravenous contrast was utilized. Study performed as a pulmonary angiogram protocol. Comparison: Prior chest CT study of 04/17/17. Findings: Pulmonary arteries are well opacified. No filling defects are seen to indicate pulmonary embolism. Mediastinum and hilar region show no adenopathy. Aorta shows no aneurysm. No pericardial thickening is seen. Visualized upper abdominal structures show no discrete abnormality. Lung windows show no acute parenchymal change. No pleural effusions are seen. Bone window settings were reviewed which show scattered degenerative disc space narrowing within the spine with endplate osteophytes. No acute osseous abnormality is appreciated. Impression: 1. No findings of pulmonary embolism. Other findings believed to be incidental as noted above. Diagnostic code #2
[2019-04-29] MEDS ORDERED: Magnesium Citrate Solution 296 ML Bottle PO ONE (14:23)
== END 2019-04-29 14:37 | disposition home or self-care (01) ==
LOC: JD.ED 10:05
DX: F41.0 Panic disorder [episodic paroxysmal anxiety] (principal); I10 Essential (primary) hypertension; M19.90 Unspecified osteoarthritis, unspecified site; F32.9 Major depressive disorder, single episode, unspecified; E03.9 Hypothyroidism, unspecified; G43.909 Migraine, unspecified, not intractable, without status migrainosus; Z79.82 Long term (current) use of aspirin; Z79.899 Other long term (current) drug therapy
CPT/HCPCS: 36415; 71045; 71275; 74018; 80053; 81001; 82553; 82962; 83735; 83880; 84484; 85025; 85379; 85610; 85730; 86140; 93005; 99285; A9270; J7030; Q9967

== ENCOUNTER 2019-09-26 09:59 | Inpatient (IN) | payer MEDICARE, SELFPAY ==
[2019-09-26] MEDS ORDERED: Famotidine 20 MG/2 ML SDV IVPUSH ONE (10:35)
[2019-09-26] MEDS ORDERED: Ondansetron 4 MG/2 ML SDV IVPUSH ONE (10:35)
[2019-09-26] MEDS ORDERED: Sodium Chloride 0.9% 10 ML Syringe FLUSH PRN (10:35)
[2019-09-26] MEDS ORDERED: Sodium Chloride 0.9% 1,000 ML IV SCH (10:45)
--- NOTE | 2019-09-26 11:47 | EDM.PDOC ---
ED HPI GENERAL MEDICAL PROBLEM - General Chief Complaint: Gastrointestinal Problem Stated Complaint: VOMITING/DIARRHEA Time Seen by Provider: 09/26/19 10:26 Source of Information: Reports: Patient, RN Notes Reviewed - History of Present Illness INITIAL COMMENTS - FREE TEXT/NARRATIVE: 63 lady comes in with abdominal pain nausea vomiting diarrhea, rectal hemorrhage. She states this started about 10:00 last evening about 12-13 hours ago. She had been feeling fine earlier yesterday. She has vomited multiple times and also has had multiple episodes of diarrhea described as black and tarry which has turned to also having bright red blood during the night and this morning. She states she does take some type of aspirin-type supplement which is a powder but no other blood thinner type medication. No history of bleeding ulcer or colon problems. her last colonoscopy was about 5 or 6 years ago and in her words unremarkable. She has been having moderate mid and upper abdominal discomfort associated with this as well. Abdomen Pain Score (Numeric/FACES): 3 - Related Data Allergies Allergy/AdvReac Type Severity Reaction Status Date / Time No Known Allergies Allergy Verified 09/26/19 10:17 Home Meds: Home Meds Acyclovir 400 mg PO BID 01/08/18 [History] DULoxetine [Cymbalta] 90 mg PO DAILY 01/08/18 [History] Levothyroxine 125 mcg PO DAILY 01/08/18 [History] Lisinopril 20 mg PO DAILY 01/08/18 [History] SUMAtriptan [Imitrex] 50 mg PO ASDIRECTED PRN 01/08/18 [History] buPROPion [buPROPion XL] 450 mg PO DAILY 01/08/18 [History] hydroCHLOROthiazide [Hydrochlorothiazide] 25 mg PO DAILY 01/08/18 [History] traMADol [Ultram] 50 mg PO Q12H PRN 01/08/18 [History] Cyclobenzaprine [Flexeril] 10 mg PO TID PRN #40 tablet 01/10/18 [Rx] bisacodyL [Dulcolax] 5 mg PO DAILY PRN tablet 01/10/18 [Rx] Acetaminophen/Dp-Hydramine [Goody's Pm Powder Packet] 1 each PO DAILY 09/26/19 [ History] ClonazePAM [KlonoPIN] 0.5 mg PO BID PRN 09/26/19 [History] busPIRone [Buspar] 0 mg PO ASDIRECTED 09/26/19 [History] Past Medical History HEENT History: Reports: Allergic Rhinitis Other HEENT History: Hearing loss Cardiovascular History: Reports: Hypertension Other Respiratory History: Cough Gastrointestinal History: Reports: Chronic Constipation, GI Bleed Genitourinary History: Reports: None 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 Immunologic History: Reports: None Oncologic (Cancer) History: Reports: None Dermatologic History: Reports: None - Infectious Disease History Infectious Disease History: Reports: Hepatitis C, MRSA, Other (See Below) Other Infectious Disease History: Patient reports herpes - Past Surgical History Head Surgeries/Procedures: Reports: None HEENT Surgical History: Reports: Other (See Below) Other HEENT Surgeries/Procedures: [place] tooth extraction Cardiovascular Surgical History: Reports: None Respiratory Surgical History: Reports: None Female Surgical History: Reports: Section Endocrine Surgical History: Reports: None Neurological Surgical History: Reports: None Other Musculoskeletal Surgeries/Procedures:: Bunion correction Oncologic Surgical History: Reports: None Dermatological Surgical History: Reports: None Social & Family History - Tobacco Use Smoking Status *Q: Never Smoker - Caffeine Use Caffeine Use: Reports: Tea Other Caffeine Use: rarely coffee, tea every day - Recreational Drug Use Recreational Drug Use: No - Living Situation & Occupation Living situation: Reports: Occupation: Retired ED ROS GENERAL - Review of Systems Review Of Systems: See Below Constitutional: Denies: Fever, Chills, Diaphoresis HEENT: Reports: No Symptoms Respiratory: Denies: Shortness of Breath Cardiovascular: Denies: Chest Pain GI/Abdominal: Reports: Abdominal Pain, Hematochezia, Melena, Nausea, Vomiting Skin: Denies: Rash Neurological: Reports: Dizziness ED EXAM, GI/ABD - Physical Exam Exam: See Below General Appearance: Alert, Mild Distress Eyes: Bilateral: Normal Appearance Throat/Mouth: Other Head: Atraumatic (mucosa is dry) Neck: Supple Respiratory/Chest: No Respiratory Distress, Lungs Clear, Normal Breath Sounds Cardiovascular: Tachycardia GI/Abdominal Exam: Soft, Non-Tender. No: Guarding Rectal (Female) Exam: Other (no stool present, blood tinged mucus on the glove, no mass or unusual tenderness palpable) Extremities: Normal Inspection Neurological: Alert, Oriented, No Motor/Sensory Deficits Skin Exam: Warm, Dry, Normal Color Course - Vital Signs Last Recorded V/S: Last Vital Signs Temp 97.8 F 09/26/19 10:14 Pulse 104 H 09/26/19 10:14 Resp 20 09/26/19 10:14 BP 148/97 H 09/26/19 10:14 Pulse Ox 97 09/26/19 10:14 - Orders/Labs/Meds Orders: Active Orders 24 hr Category Date Time Status Peripheral IV Care [RC] . DIRECTED Care 09/26/19 10:37 Active Sodium Chloride 0.9% [Normal Saline] 1,000 ml Med 09/26/19 10:45 Active IV ONETIME Sodium Chloride 0.9% [Saline Flush] Med 09/26/19 10:35 Active 10 ml FLUSH ASDIRECTED PRN Peripheral IV Insertion Adult [OM.PC] Stat Oth 09/26/19 10:35 Ordered Medication Orders Sodium Chloride (Normal Saline) 1,000 mls @ 999 mls/hr IV ONETIME [facility] Last Admin: 09/26/19 10:56 Dose: 999 mls/hr Sodium Chloride (Saline Flush) 10 ml FLUSH ASDIRECTED PRN PRN Reason: Keep Vein Open Last Admin: 09/26/19 10:56 Dose: 10 ml Labs: Laboratory Tests 09/26/19 09/26/19 09/26/19 Range/Units 12:18 12:18 12:18 WBC 13.86 H (3.98-10.04) K/mm3 RBC 4.52 (3.98-5.22) M/mm3 Hgb 13.0 (11.2-15.7) gm/dl Hct 40.3 (34.1-44.9) % MCV 89.2 (79.4-94.8) fl MCH 28.8 (25.6-32.2) pg MCHC 32.3 (32.2-35.5) g/dl RDW Std Deviation 49.0 H (36.4-46.3) fL Plt Count 257 (182-369) K/mm3 MPV 9.0 L (9.4-12.3) fl Neut % (Auto) 89.5 H (34.0-71.1) % Lymph % (Auto) 5.1 L (19.3-51.7) % [place] % (Auto) 5.0 (4.7-12.5) % Eos % (Auto) 0.1 L (0.7-5.8) Baso % (Auto) 0.1 (0.1-1.2) % Neut # (Auto) 12.41 H (1.56-6.13) K/mm3 Lymph # (Auto) 0.70 L (1.18-3.74) K/mm3 [place] # (Auto) 0.69 H (0.24-0.36) K/mm3 Eos # (Auto) 0.02 L (0.04-0.36) K/mm3 Baso # (Auto) 0.01 (0.01-0.08) K/mm3 Manual Slide Review Normal smear PT 10.9 (9.7-12.0) SECONDS INR 1.00 Sodium 139 (136-145) mEq/L Potassium 4.6 (3.5-5.1) mEq/L Chloride 104 (98-107) mEq/L Carbon Dioxide 24 (21-32) mEq/L Anion Gap 15.6 H (5-15) BUN 41 H D (7-18) mg/dL Creatinine 1.6 H (0.55-1.02) mg/dL Est Cr Clr Drug Dosing 25.85 mL/min Estimated GFR (MDRD) 33 (>60) mL/min BUN/Creatinine Ratio 25.6 H (14-18) Glucose 151 H (80-115) mg/dL Calcium 8.6 (8.5-10.1) mg/dL Total Bilirubin 0.3 (0.2-1.0) mg/dL AST 15 (15-37) U/L ALT 17 (14-59) U/L Alkaline Phosphatase 199 H (46-116) U/L Total Protein 5.9 L (6.4-8.2) g/dl Albumin 2.8 L (3.4-5.0) g/dl Globulin 3.1 gm/dL Albumin/Globulin Ratio 0.9 L (1-2) Meds: Medications Generic Name Dose Route Start Last Admin Trade Name Adriane PRN Reason Stop Dose Admin Sodium Chloride 1,000 mls @ 999 mls/hr 09/26/19 10:45 09/26/19 10:56 Normal Saline IV 999 mls/hr ONETIME NICOLASA Administration Sodium Chloride 10 ml 09/26/19 10:35 09/26/19 10:56 Saline Flush FLUSH 10 ml ASDIRECTED PRN Administration Keep Vein Open Discontinued Medications Generic Name Dose Route Start Last Admin Trade Name Frepercy PRN Reason Stop Dose Admin Famotidine 20 mg 09/26/19 10:35 09/26/19 10:56 Pepcid IVPUSH 09/26/19 10:36 20 mg ONETIME ONE Administration Lactated Ringer's 1,000 mls @ 999 mls/hr 09/26/19 13:13 09/26/19 13:34 Ringers, Lactated IV 09/26/19 14:13 999 mls/hr .BOLUS ONE Administration Metoclopramide HCl 5 mg 09/26/19 13:13 09/26/19 13:32 Reglan IVPUSH 09/26/19 13:14 5 mg ONETIME ONE Administration Ondansetron HCl 4 mg 09/26/19 10:35 09/26/19 10:56 Zofran IVPUSH 09/26/19 10:36 4 mg ONETIME ONE Administration Pantoprazole Sodium 80 mg 09/26/19 13:40 09/26/19 14:10 Protonix Iv IVPUSH 09/26/19 13:41 80 mg ONETIME ONE Administration - Re-Assessments/Exams Free Text/Narrative Re-Assessment/Exam: 09/26/19 15:45 hemoglobin came back at 13, BUN/creatinine mildly elevated compared to previous labs. She has been given IV fluid, 80 mg IV for tonics, IV Zofran she is feeling better. She still did not need to void after the first liter of IV fluid so second liter ordered some time ago. I have discussed this with Dr. Ordoñez, hospitalist director of teacher education and also Dr. Godoy, General Surgeon director of teacher education. she will be admitted inpatient [facility]. Departure - Departure Time of Disposition: 14:40 Disposition: Admitted As Inpatient 66 Condition: Fair Clinical Impression: Rectal hemorrhage, Dehydration Diarrhea Qualifiers: Diarrhea type: unspecified type Qualified Code(s): R19.7 - Diarrhea, unspecified Vomiting Qualifiers: Vomiting type: unspecified Vomiting Intractability: non-intractable Nausea presence: with nausea Qualified Code(s): R11.2 - Nausea with vomiting, unspecified - Discharge Information Referrals: Martha Peace PA-C [Primary Care Provider] - Forms: ED Department Discharge Sepsis Event Note - Evaluation Sepsis Screening Result: No Definite Risk - Focused Exam Vital Signs: Vital Signs Temp Pulse Resp BP Pulse Ox 09/26/19 10:14 97.8 F 104 H 20 148/97 H 97 Date Exam was Performed: 09/26/19 Time Exam was Performed: 15:48 ED Communication - Discussed Case With (1) Discussed Case With (1): Admitting Provider (Dr Ordoñez, decision to admit at about 14:40.) - My Orders Last 24 Hours: My Active Orders 09/26/19 10:35 Sodium Chloride 0.9% [Saline Flush] 10 ml FLUSH ASDIRECTED PRN Peripheral IV Insertion Adult [OM.PC] Stat 09/26/19 10:37 Peripheral IV Care [RC] . DIRECTED 09/26/19 10:45 Sodium Chloride 0.9% [Normal Saline] 1,000 ml IV ONETIME - Assessment/Plan Last 24 Hours: My Active Orders 09/26/19 10:35 Sodium Chloride 0.9% [Saline Flush] 10 ml FLUSH ASDIRECTED PRN Peripheral IV Insertion Adult [OM.PC] Stat 09/26/19 10:37 Peripheral IV Care [RC] . DIRECTED 09/26/19 10:45 Sodium Chloride 0.9% [Normal Saline] 1,000 ml IV ONETIME
[2019-09-26] MEDS ORDERED: Metoclopramide 10 MG/2 ML SDV IVPUSH ONE (13:13)
[2019-09-26] MEDS ORDERED: Lactated Ringers 1,000 ML IV ONE (13:13)
[2019-09-26] MEDS ORDERED: Pantoprazole 40 MG Vial IVPUSH ONE (13:40)
--- NOTE | 2019-09-26 18:24 | PCM.CONS ---
H&P History of Present Illness - General Date of Service: 09/26/19 Admit Problem/Dx: Admission Diagnosis/Problem Admission Diagnosis/Problem Gastric hemorrhage Source of Information: Patient, Provider History Limitations: Reports: No Limitations - History of Present Illness Initial Comments - Free Text/Narative: The patient 63 y/o lady who presents with symptoms of a GI bleed. She reports having diarrhea and abdominal pain in the last 2-3 days. She started having melena one day ago that transitioned to hematochezia today. She also has had abdominal tightness. She has been taking 2 packets of BC powder (containing 845mg ASA and 65 mg caffeine each) per day due to her joint pain. She also has 2 glasses of sweet tea daily. She had a similar episode of GI bleeding about 2-3 months ago. Abdomen Pain Score (Numeric/FACES): 3 - Related Data Allergies/Adverse Reactions: Allergies Allergy/AdvReac Type Severity Reaction Status Date / Time No Known Allergies Allergy Verified 09/26/19 17:54 Home Medications: Home Meds Acyclovir 400 mg PO BID 01/08/18 [History] DULoxetine [Cymbalta] 90 mg PO DAILY 01/08/18 [History] Levothyroxine 125 mcg PO DAILY 01/08/18 [History] Lisinopril 20 mg PO DAILY 01/08/18 [History] SUMAtriptan [Imitrex] 50 mg PO ASDIRECTED PRN 01/08/18 [History] buPROPion [buPROPion XL] 450 mg PO DAILY 01/08/18 [History] hydroCHLOROthiazide [Hydrochlorothiazide] 25 mg PO DAILY 01/08/18 [History] traMADol [Ultram] 50 mg PO Q12H PRN 01/08/18 [History] bisacodyL [Dulcolax] 5 mg PO DAILY PRN tablet 01/10/18 [Rx] Acetaminophen/Dp-Hydramine [Goody's Pm Powder Packet] 1 each PO DAILY 09/26/19 [ History] ClonazePAM [KlonoPIN] 0.5 mg PO BID PRN 09/26/19 [History] Cyclobenzaprine [Flexeril] 5 - 10 mg PO BID PRN 09/26/19 [History] busPIRone [Buspar] 15 mg PO BID 09/26/19 [History] Past Medical History HEENT History: Reports: Allergic Rhinitis Other HEENT History: Hearing loss Cardiovascular History: Reports: Hypertension Other Respiratory History: Cough Gastrointestinal History: Reports: Chronic Constipation, GI Bleed Genitourinary History: Reports: None 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 Immunologic History: Reports: None Oncologic (Cancer) History: Reports: None Dermatologic History: Reports: None - Infectious Disease History Infectious Disease History: Reports: Hepatitis C, MRSA, Other (See Below) Other Infectious Disease History: Patient reports herpes - Past Surgical History Head Surgeries/Procedures: Reports: None HEENT Surgical History: Reports: Other (See Below) Other HEENT Surgeries/Procedures: [place] tooth extraction Cardiovascular Surgical History: Reports: None Respiratory Surgical History: Reports: None Female Surgical History: Reports: Section Endocrine Surgical History: Reports: None Neurological Surgical History: Reports: None Other Musculoskeletal Surgeries/Procedures:: Bunion correction Oncologic Surgical History: Reports: None Dermatological Surgical History: Reports: None Social & Family History - Family History Oncologic: Reports: Breast - Tobacco Use Smoking Status *Q: Never Smoker - Caffeine Use Caffeine Use: Reports: Tea Other Caffeine Use: rarely coffee, tea every day - Recreational Drug Use Recreational Drug Use: No - Living Situation & Occupation Living situation: Reports: Occupation: Retired H&P Review of Systems - Review of Systems: Review Of Systems: See Below General: Reports: Other (subjective fever while having melena) HEENT: Reports: No Symptoms Pulmonary: Reports: No Symptoms Cardiovascular: Reports: No Symptoms Gastrointestinal: Reports: Abdominal Pain, Black Stool, Bloody Stool Genitourinary: Reports: No Symptoms Musculoskeletal: Reports: Joint Pain Skin: Reports: Bruising Psychiatric: Reports: Anxiety Exam - Exam Exam: See Below - Vital Signs Vital Signs: Last Vital Signs Temp 36.6 C 09/26/19 10:14 Pulse 104 H 09/26/19 10:14 Resp 20 09/26/19 10:14 BP 148/97 H 09/26/19 10:14 Pulse Ox 97 09/26/19 10:14 Orthostatic Blood Pressure [ 140/78 Supine] Orthostatic Blood Pressure [ 134/74 Sitting] Orthostatic Blood Pressure [ 152/87 Standing] Weight: 113.897 kg - Exam Quality Assessment: No: Supplemental Oxygen General: Alert, Oriented HEENT: Conjunctiva Clear, EOMI Neck: Supple Lungs: Normal Respiratory Effort GI/Abdominal Exam: Soft, No Distention, Tender (in the epigastrium) Extremities: Normal Inspection, No Pedal Edema Peripheral Pulses: 2+: Dorsalis Pedis (L), Dorsalis Pedis (R) Skin: Warm, Dry, Intact Neurological: Cranial Nerves Intact Neuro Extensive - Mental Status: Alert, Normal Mood/Affect (pt does appear anxious) - Patient Data Lab Results Last 24 hrs: Laboratory Results - last 24 hr 09/26/19 09/26/19 09/26/19 Range/Units 12:18 12:18 12:18 WBC 13.86 H (3.98-10.04) K/mm3 RBC 4.52 (3.98-5.22) M/mm3 Hgb 13.0 (11.2-15.7) gm/dl Hct 40.3 (34.1-44.9) % MCV 89.2 (79.4-94.8) fl MCH 28.8 (25.6-32.2) pg MCHC 32.3 (32.2-35.5) g/dl RDW Std Deviation 49.0 H (36.4-46.3) fL Plt Count 257 (182-369) K/mm3 MPV 9.0 L (9.4-12.3) fl Neut % (Auto) 89.5 H (34.0-71.1) % Lymph % (Auto) 5.1 L (19.3-51.7) % [place] % (Auto) 5.0 (4.7-12.5) % Eos % (Auto) 0.1 L (0.7-5.8) Baso % (Auto) 0.1 (0.1-1.2) % Neut # (Auto) 12.41 H (1.56-6.13) K/mm3 Lymph # (Auto) 0.70 L (1.18-3.74) K/mm3 [place] # (Auto) 0.69 H (0.24-0.36) K/mm3 Eos # (Auto) 0.02 L (0.04-0.36) K/mm3 Baso # (Auto) 0.01 (0.01-0.08) K/mm3 Manual Slide Review Normal smear PT 10.9 (9.7-12.0) SECONDS INR 1.00 Sodium 139 (136-145) mEq/L Potassium 4.6 (3.5-5.1) mEq/L Chloride 104 (98-107) mEq/L Carbon Dioxide 24 (21-32) mEq/L Anion Gap 15.6 H (5-15) BUN 41 H D (7-18) mg/dL Creatinine 1.6 H (0.55-1.02) mg/dL Est Cr Clr Drug Dosing 25.85 mL/min Estimated GFR (MDRD) 33 (>60) mL/min BUN/Creatinine Ratio 25.6 H (14-18) Glucose 151 H (80-115) mg/dL Calcium 8.6 (8.5-10.1) mg/dL Total Bilirubin 0.3 (0.2-1.0) mg/dL AST 15 (15-37) U/L ALT 17 (14-59) U/L Alkaline Phosphatase 199 H (46-116) U/L Total Protein 5.9 L (6.4-8.2) g/dl Albumin 2.8 L (3.4-5.0) g/dl Globulin 3.1 gm/dL Albumin/Globulin Ratio 0.9 L (1-2) Result Diagrams: 09/26/19 12:18 09/26/19 12:18 Sepsis Event Note - Evaluation Sepsis Screening Result: No Definite Risk - Focused Exam Vital Signs: Vital Signs Temp Pulse Resp BP Pulse Ox 09/26/19 10:14 36.6 C 104 H 20 148/97 H 97 Date Exam was Performed: 09/26/19 Time Exam was Performed: 18:26 Consult PN Assessment/Plan Procedures: Procedures ANTINUCLEAR ANTIBODIES (03/13/17) ASSAY OF CREATININE (09/03/19) ASSAY OF FREE THYROXINE (10/31/16) ASSAY OF IRON (07/14/19) ASSAY OF MAGNESIUM (04/29/19) ASSAY OF NATRIURETIC PEPTIDE (04/29/19) ASSAY OF PREALBUMIN (12/27/17) ASSAY OF TRANSFERRIN (07/14/19) ASSAY OF TROPONIN QUANT (04/29/19) ASSAY THYROID STIM HORMONE (07/14/19) ASSAY TRIIODOTHYRONINE (T3) (07/27/16) C-REACTIVE PROTEIN (04/29/19) COMPLETE CBC AUTOMATED (02/20/19) COMPLETE CBC W/AUTO DIFF WBC (07/14/19) COMPREHEN METABOLIC PANEL (07/14/19) CREATINE MB FRACTION (04/29/19) CT ANGIOGRAPHY CHEST (04/29/19) DXA BONE DENSITY AXIAL (08/20/17) ELECTROCARDIOGRAM TRACING (04/29/19) EMERGENCY DEPT VISIT (04/29/19) EXTRACRANIAL BILAT STUDY (04/24/17) FIBRIN DEGRADATION QUANT (04/29/19) FLUOROSCOPY <1 HR PHYS/QHP (01/09/18) GLUCOSE BLOOD TEST (04/29/19) GLYCOSYLATED HEMOGLOBIN TEST (07/14/19) LIPID PANEL (04/24/17) MANUAL THERAPY 1/> REGIONS (01/09/18) METABOLIC PANEL TOTAL CA (03/28/19) MR-STAPH DNA AMP PROBE (01/09/18) MRI NECK SPINE W/O DYE (04/09/19) OFFICE/OUTPATIENT VISIT EST (03/28/19) OFFICE/OUTPATIENT VISIT EST (04/22/18) OFFICE/OUTPATIENT VISIT EST (12/27/17) OFFICE/OUTPATIENT VISIT EST (08/20/17) OFFICE/OUTPATIENT VISIT EST (03/23/17) OFFICE/OUTPATIENT VISIT EST (08/03/16) OT EVAL LOW COMPLEX 30 MIN (01/09/18) POLYSOM 6/> YRS 4/> DAVID (02/20/19) POLYSOM 6/>YRS CPAP 4/> PARM (03/20/19) PROTHROMBIN TIME (04/29/19) PT EVAL LOW COMPLEX 20 MIN (01/09/18) RBC SED RATE AUTOMATED (04/22/18) RHEUMATOID FACTOR TEST QUAL (03/13/17) ROUTINE VENIPUNCTURE (09/03/19) SELF CARE MNGMENT TRAINING (01/09/18) THERAPEUTIC EXERCISES (01/09/18) THROMBOPLASTIN TIME PARTIAL (04/29/19) TTE W/DOPPLER COMPLETE (04/03/19) UR ALBUMIN SEMIQUANTITATIVE (06/14/17) URINALYSIS AUTO W/SCOPE (04/29/19) URINE CULTURE/COLONY COUNT (04/17/17) US EXAM ABDO BACK WALL PEREZ (04/24/17) VIT D 1 25-DIHYDROXY (08/20/17) VITAMIN B-12 (02/20/19) VITAMIN D 25 HYDROXY (07/14/19) X-RAY EXAM ABDOMEN 1 VIEW (04/29/19) X-RAY EXAM CHEST 1 VIEW (04/29/19) X-RAY EXAM CHEST 2 VIEWS (03/20/19) X-RAY EXAM NECK SPINE 2-3 VW (10/31/16) X-RAY EXAM OF SHOULDER (01/09/18) (1) Diarrhea SNOMED Code(s): 10398726 Code(s): R19.7 - DIARRHEA, UNSPECIFIED Current Visit: Yes Qualifiers: Diarrhea type: unspecified type Qualified Code(s): R19.7 - Diarrhea, unspecified (2) Upper GI bleed SNOMED Code(s): 42861596 Code(s): K92.2 - GASTROINTESTINAL HEMORRHAGE, UNSPECIFIED Current Visit: Yes Problem List Initiated/Reviewed/Updated: Yes Plan: 63 y/o lady with UGI bleed, likely due to excessive NSAID use with hemorrhagic gastritis - trend Hg every 4-6 hours - NPO until Hg stable for 8-12 hours - May have scant ice chips and mouth swabs for comfort - IV Protonix BID - H. pylori testing Will follow Bina Appiah MD General surgery
[2019-09-26] MEDS ORDERED: Ondansetron 4 MG/2 ML SDV IV PRN (18:38)
--- NOTE | 2019-09-26 18:44 | PCM.HP.2 ---
H&P History of Present Illness - General Date of Service: 09/26/19 Admit Problem/Dx: Admission Diagnosis/Problem Admission Diagnosis/Problem Gastric hemorrhage - History of Present Illness Initial Comments - Free Text/Narative: 63-year-old female who presented to the emergency room with abdominal pain, nausea, and bright red blood per rectum. Patient states that 2 nights ago she took mag citrate because of constipation and became sick to the stomach. She started vomiting her dinner and developed stomach cramps. She then developed black tarry stool that became bloody. This morning she has had several bloody bowel movements. Patient states she has arthritis of multiple joints and takes BC powders which contain 845 mg of aspirin and 65 mg of caffeine for her pain. She will take a couple of those a day. Patient also drinks sweet tea daily. Currently patient does complain of a headache of approximately 4 out of 10. She denies any lightheadedness. She denies any dizziness with standing. Abdominal pain is mild to moderate currently 3 out of 10. Patient had a similar episode 2 to 3 months, with less blood in her stool. In the emergency room her hemoglobin was 13.0. Repeat when she arrived on the floor was 14.1. PT 10.9, platelet count of 257, BUN 41, creatinine 1.6. Recent creatinine on September 03, 2019 was 1.1. She received 2 L of fluid in the emergency room. She also received Protonix 80 mg IV and Zofran. Abdomen Pain Score (Numeric/FACES): 3 Headache Pain Score (Numeric/FACES): 4 - Related Data Allergies/Adverse Reactions: Allergies Allergy/AdvReac Type Severity Reaction Status Date / Time No Known Allergies Allergy Verified 09/26/19 17:54 Home Medications: Home Meds Acyclovir 400 mg PO BID 01/08/18 [History] DULoxetine [Cymbalta] 90 mg PO DAILY 01/08/18 [History] Levothyroxine 125 mcg PO DAILY 01/08/18 [History] Lisinopril 20 mg PO DAILY 01/08/18 [History] SUMAtriptan [Imitrex] 50 mg PO ASDIRECTED PRN 01/08/18 [History] buPROPion [buPROPion XL] 450 mg PO DAILY 01/08/18 [History] hydroCHLOROthiazide [Hydrochlorothiazide] 25 mg PO DAILY 01/08/18 [History] traMADol [Ultram] 50 mg PO Q12H PRN 01/08/18 [History] Acetaminophen/Dp-Hydramine [Goody's Pm Powder Packet] 1 each PO DAILY 09/26/19 [ History] ClonazePAM [KlonoPIN] 0.5 mg PO BID PRN 09/26/19 [History] Cyclobenzaprine [Flexeril] 5 - 10 mg PO BID PRN 09/26/19 [History] busPIRone [Buspar] 15 mg PO BID 09/26/19 [History] Past Medical History HEENT History: Reports: Allergic Rhinitis Other HEENT History: Hearing loss Cardiovascular History: Reports: Hypertension Respiratory History: Reports: Sleep Apnea, Other (See Below) Other Respiratory History: Cough Gastrointestinal History: Reports: Chronic Constipation, GI Bleed Genitourinary History: Reports: None [employer] History: Reports: Musculoskeletal History: Reports: Arthritis, Osteoarthritis, Other (See Below) Other Musculoskeletal History: Neck muscle spasms, shoulder pain Neurological History: Reports: Migraines Other Neuro History: Rarely Migraines Psychiatric History: Reports: Anxiety, Depression Endocrine/Metabolic History: Reports: Hypothyroidism, Obesity/BMI 30+, Vitamin D Deficiency Other Endocrine/Metabolic History: Elevated blood sugars Hematologic History: Reports: None Other Hematologic History: Hepatitis C. Immunologic History: Reports: None Oncologic (Cancer) History: Reports: None Dermatologic History: Reports: None - Infectious Disease History Infectious Disease History: Reports: Hepatitis C, MRSA, Other (See Below) Other Infectious Disease History: Patient reports herpes - Past Surgical History Head Surgeries/Procedures: Reports: None HEENT Surgical History: Reports: Other (See Below) Other HEENT Surgeries/Procedures: [place] tooth extraction Cardiovascular Surgical History: Reports: None Respiratory Surgical History: Reports: None Female Surgical History: Reports: Section Endocrine Surgical History: Reports: None Neurological Surgical History: Reports: None Other Musculoskeletal Surgeries/Procedures:: Bunion correction Oncologic Surgical History: Reports: None Dermatological Surgical History: Reports: None Social & Family History - Family History Family Medical History: Noncontributory Oncologic: Reports: Breast - Tobacco Use Smoking Status *Q: Never Smoker - Caffeine Use Caffeine Use: Reports: Tea Other Caffeine Use: rarely coffee, tea every day - Recreational Drug Use Recreational Drug Use: No - Living Situation & Occupation Living situation: Reports: Occupation: Retired H&P Review of Systems - Review of Systems: Review Of Systems: Comprehensive ROS is negative, except as noted in HPI. Exam - Exam Exam: See Below - Vital Signs Vital Signs: Last Vital Signs Temp 99.7 F 09/26/19 16:51 Pulse 104 H 09/26/19 16:51 Resp 20 09/26/19 16:51 BP 96/76 09/26/19 16:51 Pulse Ox 96 09/26/19 16:51 Orthostatic Blood Pressure [ 140/78 Supine] Orthostatic Blood Pressure [ 134/74 Sitting] Orthostatic Blood Pressure [ 152/87 Standing] Weight: 251 lb 1.6 oz - Exam Quality Assessment: No: Supplemental Oxygen General: Alert, Oriented, 4 HEENT: Conjunctiva Clear, EACs Clear, EOMI, Hearing Intact, Mucosa Moist & [place] Neck: Supple, Trachea Midline, 2 Lungs: Clear to Auscultation, Normal Respiratory Effort Cardiovascular: Regular Rate, Regular Rhythm GI/Abdominal Exam: Normal Bowel Sounds, Soft, No Distention, Tender (Epigastrium ), Other (Mildly tympanic) Back Exam: Normal Inspection Extremities: Normal Inspection, Normal Range of Motion, Non-Tender, Normal Capillary Refill Skin: Warm, Dry, Intact Neurological: Cranial Nerves Intact Neuro Extensive - Mental Status: Alert, Oriented x3, Normal Mood/Affect, Normal Cognition Neuro Extensive - Motor, Sensory, Reflexes: CN II-XII Intact Psychiatric: Alert, Normal Affect, Normal Mood - Patient Data Lab Results Last 24 hrs: Laboratory Results - last 24 hr 09/26/19 09/26/19 09/26/19 Range/Units 12:18 12:18 12:18 WBC 13.86 H (3.98-10.04) K/mm3 RBC 4.52 (3.98-5.22) M/mm3 Hgb 13.0 (11.2-15.7) gm/dl Hct 40.3 (34.1-44.9) % MCV 89.2 (79.4-94.8) fl MCH 28.8 (25.6-32.2) pg MCHC 32.3 (32.2-35.5) g/dl RDW Std Deviation 49.0 H (36.4-46.3) fL Plt Count 257 (182-369) K/mm3 MPV 9.0 L (9.4-12.3) fl Neut % (Auto) 89.5 H (34.0-71.1) % Lymph % (Auto) 5.1 L (19.3-51.7) % [place] % (Auto) 5.0 (4.7-12.5) % Eos % (Auto) 0.1 L (0.7-5.8) Baso % (Auto) 0.1 (0.1-1.2) % Neut # (Auto) 12.41 H (1.56-6.13) K/mm3 Lymph # (Auto) 0.70 L (1.18-3.74) K/mm3 [place] # (Auto) 0.69 H (0.24-0.36) K/mm3 Eos # (Auto) 0.02 L (0.04-0.36) K/mm3 Baso # (Auto) 0.01 (0.01-0.08) K/mm3 Manual Slide Review Normal smear PT 10.9 (9.7-12.0) SECONDS INR 1.00 Sodium 139 (136-145) mEq/L Potassium 4.6 (3.5-5.1) mEq/L Chloride 104 (98-107) mEq/L Carbon Dioxide 24 (21-32) mEq/L Anion Gap 15.6 H (5-15) BUN 41 H D (7-18) mg/dL Creatinine 1.6 H (0.55-1.02) mg/dL Est Cr Clr Drug Dosing 25.85 mL/min Estimated GFR (MDRD) 33 (>60) mL/min BUN/Creatinine Ratio 25.6 H (14-18) Glucose 151 H (80-115) mg/dL Calcium 8.6 (8.5-10.1) mg/dL Total Bilirubin 0.3 (0.2-1.0) mg/dL AST 15 (15-37) U/L ALT 17 (14-59) U/L Alkaline Phosphatase 199 H (46-116) U/L Total Protein 5.9 L (6.4-8.2) g/dl Albumin 2.8 L (3.4-5.0) g/dl Globulin 3.1 gm/dL Albumin/Globulin Ratio 0.9 L (1-2) Result Diagrams: 09/26/19 19:25 09/26/19 12:18 Sepsis Event Note - Evaluation Sepsis Screening Result: No Definite Risk - Focused Exam Vital Signs: Vital Signs Temp Temp Pulse Pulse Resp BP BP 09/26/19 16:51 99.7 F 104 H 20 96/76 09/26/19 10:14 97.8 F 104 H 20 148/97 H Pulse Ox 09/26/19 16:51 96 09/26/19 10:14 97 Date Exam was Performed: 09/26/19 Time Exam was Performed: 21:06 Problem List Initiated/Reviewed/Updated: Yes Orders Last 24hrs: Active Orders 24 hr Category Date Time Status Patient Status [ADT] Routine ADT 09/26/19 15:59 Active Antiembolic Devices [RC] PER UNIT ROUTINE Care 09/26/19 18:40 Ordered Oxygen Therapy [RC] PRN Care 09/26/19 18:38 Ordered Up With Assistance [RC] ASDIRECTED Care 09/26/19 18:38 Ordered VTE/DVT Education [RC] PER UNIT ROUTINE Care 09/26/19 18:38 Ordered Vital Signs [RC] Q4H Care 09/26/19 18:38 Ordered Nothing per Oral Now Diet [DIET] Diet 09/26/19 Dinner Ordered CBC WITH AUTO DIFF [HEME] AM Lab 09/27/19 05:11 Ordered CBC WITH AUTO DIFF [HEME] AM Lab 09/28/19 05:11 Ordered COMPREHENSIVE METABOLIC PN,CMP [CHEM] AM Lab 09/27/19 05:11 Ordered COMPREHENSIVE METABOLIC PN,CMP [CHEM] AM Lab 09/28/19 05:11 Ordered HEMOGLOBIN/HEMATOCRIT,HH [HEME] Stat Lab 09/26/19 18:38 Ordered MAGNESIUM [CHEM] AM Lab 09/27/19 05:11 Ordered MAGNESIUM [CHEM] AM Lab 09/28/19 05:11 Ordered Lactated Ringers [Ringers, Lactated] 1,000 ml Med 09/26/19 18:45 Ordered IV ASDIRECTED Morphine Med 09/26/19 18:38 Ordered 2 mg IVPUSH Q2H PRN Ondansetron [Zofran] Med 09/26/19 18:38 Ordered 4 mg IV Q4H PRN Pantoprazole [ProTONIX IV] 80 mg Med 09/26/19 18:45 Ordered Sodium Chloride 0.9% [Normal Saline] 100 ml IV Q10H Sodium Chloride 0.9% [Normal Saline] 1,000 ml Med 09/26/19 10:45 Active IV ONETIME Sodium Chloride 0.9% [Saline Flush] Med 09/26/19 10:35 Active 10 ml FLUSH ASDIRECTED PRN Peripheral IV Insertion Adult [OM.PC] Stat Oth 09/26/19 10:35 Ordered Sequential Compression Device [OM.PC] Per Unit Routine Oth 09/26/19 18:39 Ordered Resuscitation Status Routine Resus Stat 09/26/19 18:38 Ordered Medication Orders Sodium Chloride (Normal Saline) 1,000 mls @ 999 mls/hr IV ONETIME NICOLASA Last Admin: 09/26/19 10:56 Dose: 999 mls/hr Lactated Ringer's (Ringers, Lactated) 1,000 mls @ 100 mls/hr IV ASDIRECTED NICOLASA Morphine Sulfate (Morphine) 2 mg IVPUSH Q2H PRN PRN Reason: Pain (severe 7-10) Stop: 09/27/19 18:40 Ondansetron HCl (Zofran) 4 mg IV Q4H PRN PRN Reason: Nausea/Vomiting Sodium Chloride (Saline Flush) 10 ml FLUSH ASDIRECTED PRN PRN Reason: Keep Vein Open Last Admin: 09/26/19 10:56 Dose: 10 ml Assessment/Plan Comment:: Assessment * Upper GI bleed * Likely secondary to NSAID use, BC powder which contains aspirin and caffeine * Acute renal injury on stage III chronic renal insufficiency * Creatinine 1.6, baseline 1.1 * BUN 41, likely worsened secondary to upper GI bleed * GFR 33 * Likely secondary to NSAID use and GI bleed * Hold lisinopril * Anxiety * Patient on multiple home meds that she will have to have held tonight. * Hypertension * Stable blood pressure of 96/74 * Headache/migraine headache disorder * Likely worsened secondary to caffeine withdrawal from not taking her BC powder Plan * Admit to floor on telemetry * Hemoglobin every 6 hours until stable * LR at 100 mL an hour * Acetaminophen 650 mg [place] every 4 hours as needed pain * Morphine 2 mg IV every 2 hours as needed severe pain * Benadryl 50 mg IV every 6 hours as needed anxiety * N.p.o. until hemoglobin stable for 12 hours, then restart home meds and clear liquids. * Consult surgery * VTE prophylaxis with SCDs * CODE STATUS full code * Estimated length of stay 2 to 3 days. - Mortality Measure Prognosis:: Good
[2019-09-26] MEDS: Pantoprazole 80 MG in Sodium Chloride 0.9% 100 ML IV SCH (20:27)
[2019-09-26] MEDS: Lactated Ringers 1,000 ML IV SCH (20:28)
[2019-09-26] MEDS: Morphine 2 MG/ML SYRINGE IVPUSH PRN (20:56)
[2019-09-26] MEDS ORDERED: diphenhydrAMINE 50 MG/ML SDV IVPUSH PRN (21:21)
[2019-09-27] MEDS: Morphine 2 MG/ML SYRINGE IVPUSH PRN ×2 (04:56→11:07)
--- NOTE | 2019-09-27 06:26 | PCM.CONSN ---
- General Info Date of Service: 09/27/19 Functional Status: Reports: Pain Controlled, Ambulating, Other (1 episode of hematochezia noted overnight. Patient reports her abdominal pain is improved.) - Patient Data Vitals - Most Recent: Last Vital Signs Temp 36.7 C 09/27/19 04:48 Pulse 95 09/27/19 04:48 Resp 18 09/27/19 04:48 BP 128/73 09/27/19 04:48 Pulse Ox 92 L 09/27/19 04:48 Orthostatic Blood Pressure [ 140/78 Supine] Orthostatic Blood Pressure [ 134/74 Sitting] Orthostatic Blood Pressure [ 152/87 Standing] Weight - Most Recent: 112.899 kg I&O - Last 24 Hours: Intake & Output 09/26/19 09/26/19 09/27/19 14:59 22:59 06:59 Intake Total 0 Output Total 600 Balance -600 Lab Results Last 24 Hours: Laboratory Results - last 24 hr 09/26/19 09/26/19 09/26/19 Range/Units 12:18 12:18 12:18 WBC 13.86 H (3.98-10.04) K/mm3 RBC 4.52 (3.98-5.22) M/mm3 Hgb 13.0 (11.2-15.7) gm/dl Hct 40.3 (34.1-44.9) % MCV 89.2 (79.4-94.8) fl MCH 28.8 (25.6-32.2) pg MCHC 32.3 (32.2-35.5) g/dl RDW Std Deviation 49.0 H (36.4-46.3) fL Plt Count 257 (182-369) K/mm3 MPV 9.0 L (9.4-12.3) fl Neut % (Auto) 89.5 H (34.0-71.1) % Lymph % (Auto) 5.1 L (19.3-51.7) % [place] % (Auto) 5.0 (4.7-12.5) % Eos % (Auto) 0.1 L (0.7-5.8) Baso % (Auto) 0.1 (0.1-1.2) % Neut # (Auto) 12.41 H (1.56-6.13) K/mm3 Lymph # (Auto) 0.70 L (1.18-3.74) K/mm3 [place] # (Auto) 0.69 H (0.24-0.36) K/mm3 Eos # (Auto) 0.02 L (0.04-0.36) K/mm3 Baso # (Auto) 0.01 (0.01-0.08) K/mm3 Manual Slide Review Normal smear PT 10.9 (9.7-12.0) SECONDS INR 1.00 Sodium 139 (136-145) mEq/L Potassium 4.6 (3.5-5.1) mEq/L Chloride 104 (98-107) mEq/L Carbon Dioxide 24 (21-32) mEq/L Anion Gap 15.6 H (5-15) BUN 41 H D (7-18) mg/dL Creatinine 1.6 H (0.55-1.02) mg/dL Est Cr Clr Drug Dosing 25.85 mL/min Estimated GFR (MDRD) 33 (>60) mL/min BUN/Creatinine Ratio 25.6 H (14-18) Glucose 151 H (80-115) mg/dL Calcium 8.6 (8.5-10.1) mg/dL Total Bilirubin 0.3 (0.2-1.0) mg/dL AST 15 (15-37) U/L ALT 17 (14-59) U/L Alkaline Phosphatase 199 H (46-116) U/L Total Protein 5.9 L (6.4-8.2) g/dl Albumin 2.8 L (3.4-5.0) g/dl Globulin 3.1 gm/dL Albumin/Globulin Ratio 0.9 L (1-2) 09/26/19 09/27/19 Range/Units 19:25 01:11 WBC (3.98-10.04) K/mm3 RBC (3.98-5.22) M/mm3 Hgb 14.1 12.6 D (11.2-15.7) gm/dl Hct 42.9 39.6 (34.1-44.9) % MCV (79.4-94.8) fl MCH (25.6-32.2) pg MCHC (32.2-35.5) g/dl RDW Std Deviation (36.4-46.3) fL Plt Count (182-369) K/mm3 MPV (9.4-12.3) fl Neut % (Auto) (34.0-71.1) % Lymph % (Auto) (19.3-51.7) % [place] % (Auto) (4.7-12.5) % Eos % (Auto) (0.7-5.8) Baso % (Auto) (0.1-1.2) % Neut # (Auto) (1.56-6.13) K/mm3 Lymph # (Auto) (1.18-3.74) K/mm3 [place] # (Auto) (0.24-0.36) K/mm3 Eos # (Auto) (0.04-0.36) K/mm3 Baso # (Auto) (0.01-0.08) K/mm3 Manual Slide Review PT (9.7-12.0) SECONDS INR Sodium (136-145) mEq/L Potassium (3.5-5.1) mEq/L Chloride (98-107) mEq/L Carbon Dioxide (21-32) mEq/L Anion Gap (5-15) BUN (7-18) mg/dL Creatinine (0.55-1.02) mg/dL Est Cr Clr Drug Dosing mL/min Estimated GFR (MDRD) (>60) mL/min BUN/Creatinine Ratio (14-18) Glucose (80-115) mg/dL Calcium (8.5-10.1) mg/dL Total Bilirubin (0.2-1.0) mg/dL AST (15-37) U/L ALT (14-59) U/L Alkaline Phosphatase (46-116) U/L Total Protein (6.4-8.2) g/dl Albumin (3.4-5.0) g/dl Globulin gm/dL Albumin/Globulin Ratio (1-2) Med Orders - Current: Current Medications Diphenhydramine HCl (Benadryl) 50 mg IVPUSH Q6H PRN PRN Reason: Anxiety Lactated Ringer's (Ringers, Lactated) 1,000 mls @ 100 mls/hr IV ASDIRECTED NICOLASA Last Admin: 09/26/19 20:28 Dose: 100 mls/hr Pantoprazole Sodium 80 mg/ (Sodium Chloride) 100 mls @ 10 mls/hr IV Q10H NICOLASA Last Admin: 09/26/19 20:27 Dose: 10 mls/hr Morphine Sulfate (Morphine) 2 mg IVPUSH Q2H PRN PRN Reason: Pain (severe 7-10) Stop: 09/27/19 18:40 Last Admin: 09/27/19 04:56 Dose: 2 mg Ondansetron HCl (Zofran) 4 mg IV Q4H PRN PRN Reason: Nausea/Vomiting Sodium Chloride (Saline Flush) 10 ml FLUSH ASDIRECTED PRN PRN Reason: Keep Vein Open Last Admin: 09/26/19 10:56 Dose: 10 ml Discontinued Medications Famotidine (Pepcid) 20 mg IVPUSH ONETIME ONE Stop: 09/26/19 10:36 Last Admin: 09/26/19 10:56 Dose: 20 mg Sodium Chloride (Normal Saline) 1,000 mls @ 999 mls/hr IV ONETIME [facility] Last Admin: 09/26/19 10:56 Dose: 999 mls/hr Lactated Ringer's (Ringers, Lactated) 1,000 mls @ 999 mls/hr IV .BOLUS ONE Stop: 09/26/19 14:13 Last Admin: 09/26/19 13:34 Dose: 999 mls/hr Metoclopramide HCl (Reglan) 5 mg IVPUSH ONETIME ONE Stop: 09/26/19 13:14 Last Admin: 09/26/19 13:32 Dose: 5 mg Ondansetron HCl (Zofran) 4 mg IVPUSH ONETIME ONE Stop: 09/26/19 10:36 Last Admin: 09/26/19 10:56 Dose: 4 mg Pantoprazole Sodium (Protonix Iv) 80 mg IVPUSH ONETIME ONE Stop: 09/26/19 13:41 Last Admin: 09/26/19 14:10 Dose: 80 mg - Exam Quality Assessment: No: Supplemental Oxygen General: Alert Lungs: Normal Respiratory Effort GI/Abdominal Exam: Soft, No Distention, Tender (Minimally tender in the epigastrium) Sepsis Event Note - Evaluation Sepsis Screening Result: No Definite Risk - Focused Exam Vital Signs: Vital Signs Temp Pulse Resp BP Pulse Ox 09/27/19 04:48 36.7 C 95 18 128/73 92 L 09/27/19 00:54 36.9 C 104 H 18 98/72 96 02/14/20 20:16 37.1 C 113 H 20 139/73 95 Date Exam was Performed: 09/27/19 Time Exam was Performed: 06:23 Consult PN Assessment/Plan Procedures: Procedures ANTINUCLEAR ANTIBODIES (03/13/17) ASSAY OF CREATININE (09/03/19) ASSAY OF FREE THYROXINE (10/31/16) ASSAY OF IRON (07/14/19) ASSAY OF MAGNESIUM (04/29/19) ASSAY OF NATRIURETIC PEPTIDE (04/29/19) ASSAY OF PREALBUMIN (12/27/17) ASSAY OF TRANSFERRIN (07/14/19) ASSAY OF TROPONIN QUANT (04/29/19) ASSAY THYROID STIM HORMONE (07/14/19) ASSAY TRIIODOTHYRONINE (T3) (07/27/16) C-REACTIVE PROTEIN (04/29/19) COMPLETE CBC AUTOMATED (02/20/19) COMPLETE CBC W/AUTO DIFF WBC (07/14/19) COMPREHEN METABOLIC PANEL (07/14/19) CREATINE MB FRACTION (04/29/19) CT ANGIOGRAPHY CHEST (04/29/19) DXA BONE DENSITY AXIAL (08/20/17) ELECTROCARDIOGRAM TRACING (04/29/19) EMERGENCY DEPT VISIT (04/29/19) EXTRACRANIAL BILAT STUDY (04/24/17) FIBRIN DEGRADATION QUANT (04/29/19) FLUOROSCOPY <1 HR PHYS/QHP (01/09/18) GLUCOSE BLOOD TEST (04/29/19) GLYCOSYLATED HEMOGLOBIN TEST (07/14/19) LIPID PANEL (04/24/17) MANUAL THERAPY 1/> REGIONS (01/09/18) METABOLIC PANEL TOTAL CA (03/28/19) MR-STAPH DNA AMP PROBE (01/09/18) MRI NECK SPINE W/O DYE (04/09/19) OFFICE/OUTPATIENT VISIT EST (03/28/19) OFFICE/OUTPATIENT VISIT EST (04/22/18) OFFICE/OUTPATIENT VISIT EST (12/27/17) OFFICE/OUTPATIENT VISIT EST (08/20/17) OFFICE/OUTPATIENT VISIT EST (03/23/17) OFFICE/OUTPATIENT VISIT EST (08/03/16) OT EVAL LOW COMPLEX 30 MIN (01/09/18) POLYSOM 6/> YRS 4/> DAVID (02/20/19) POLYSOM 6/>YRS CPAP 4/> PARM (03/20/19) PROTHROMBIN TIME (04/29/19) PT EVAL LOW COMPLEX 20 MIN (01/09/18) RBC SED RATE AUTOMATED (04/22/18) RHEUMATOID FACTOR TEST QUAL (03/13/17) ROUTINE VENIPUNCTURE (09/03/19) SELF CARE MNGMENT TRAINING (01/09/18) THERAPEUTIC EXERCISES (01/09/18) THROMBOPLASTIN TIME PARTIAL (04/29/19) TTE W/DOPPLER COMPLETE (04/03/19) UR ALBUMIN SEMIQUANTITATIVE (06/14/17) URINALYSIS AUTO W/SCOPE (04/29/19) URINE CULTURE/COLONY COUNT (04/17/17) US EXAM ABDO BACK WALL PEREZ (04/24/17) VIT D 1 25-DIHYDROXY (08/20/17) VITAMIN B-12 (02/20/19) VITAMIN D 25 HYDROXY (07/14/19) X-RAY EXAM ABDOMEN 1 VIEW (04/29/19) X-RAY EXAM CHEST 1 VIEW (04/29/19) X-RAY EXAM CHEST 2 VIEWS (03/20/19) X-RAY EXAM NECK SPINE 2-3 VW (10/31/16) X-RAY EXAM OF SHOULDER (01/09/18) (1) Diarrhea SNOMED Code(s): 54341011 Code(s): R19.7 - DIARRHEA, UNSPECIFIED Current Visit: Yes Qualifiers: Diarrhea type: unspecified type Qualified Code(s): R19.7 - Diarrhea, unspecified (2) Upper GI bleed SNOMED Code(s): 06662384 Code(s): K92.2 - GASTROINTESTINAL HEMORRHAGE, UNSPECIFIED Current Visit: Yes Problem List Initiated/Reviewed/Updated: Yes Plan: 63 y/o lady with UGI bleed, likely due to excessive NSAID use with hemorrhagic gastritis. Showing improvement with n.p.o. status and Protonix. - trend Hg every 4-6 hours - NPO until Hg stable for 8-12 hours - May have scant ice chips and mouth swabs for comfort while n.p.o. -Start diet with clears and advance as tolerated after hemoglobin is stable. - IV Protonix BID - H. pylori testing She will need an out patient endoscopy at 4 to 6 weeks after this incident. She should follow-up in my office. Bina Appiah MD General surgery
[2019-09-27] MEDS: Pantoprazole 80 MG in Sodium Chloride 0.9% 100 ML IV SCH ×2 (06:41→17:31)
[2019-09-27] MEDS: Lactated Ringers 1,000 ML IV SCH (06:42)
--- NOTE | 2019-09-27 15:06 | PCM.PN ---
- General Info Date of Service: 09/27/19 Admission Dx/Problem (Free Text): Admission Diagnosis/Problem Admission Diagnosis/Problem Gastric hemorrhage Subjective Update: Patient continues to have some epigastric discomfort. She had one bloody bowel movement overnight. Functional Status: Reports: Pain Controlled - Review of Systems General: Reports: No Symptoms HEENT: Reports: No Symptoms Pulmonary: Reports: No Symptoms Cardiovascular: Reports: No Symptoms Musculoskeletal: Reports: No Symptoms - Patient Data Vitals - Most Recent: Last Vital Signs Temp 97.3 F 09/27/19 11:14 Pulse 96 09/27/19 11:14 Resp 16 09/27/19 11:14 BP 114/55 L 09/27/19 11:14 Pulse Ox 92 L 09/27/19 11:14 Orthostatic Blood Pressure [ 140/78 Supine] Orthostatic Blood Pressure [ 134/74 Sitting] Orthostatic Blood Pressure [ 152/87 Standing] Weight - Most Recent: 248 lb 14.4 oz I&O - Last 24 Hours: Intake & Output 09/27/19 09/27/19 09/27/19 06:59 14:59 22:59 Intake Total 0 Output Total 600 Balance -600 Lab Results Last 24 Hours: Laboratory Results - last 24 hr 09/26/19 09/27/19 09/27/19 Range/Units 19:25 01:11 06:42 WBC 10.03 (3.98-10.04) K/mm3 RBC 4.14 (3.98-5.22) M/mm3 Hgb 14.1 12.6 D 11.9 (11.2-15.7) gm/dl Hct 42.9 39.6 37.5 (34.1-44.9) % MCV 90.6 (79.4-94.8) fl MCH 28.7 (25.6-32.2) pg MCHC 31.7 L (32.2-35.5) g/dl RDW Std Deviation 50.2 H (36.4-46.3) fL Plt Count 213 (182-369) K/mm3 MPV 9.1 L (9.4-12.3) fl Neut % (Auto) 85.5 H (34.0-71.1) % Lymph % (Auto) 8.5 L (19.3-51.7) % [place] % (Auto) 5.4 (4.7-12.5) % Eos % (Auto) 0.3 L (0.7-5.8) Baso % (Auto) 0.1 (0.1-1.2) % Neut # (Auto) 8.58 H (1.56-6.13) K/mm3 Lymph # (Auto) 0.85 L (1.18-3.74) K/mm3 [place] # (Auto) 0.54 H (0.24-0.36) K/mm3 Eos # (Auto) 0.03 L (0.04-0.36) K/mm3 Baso # (Auto) 0.01 (0.01-0.08) K/mm3 Manual Slide Review Abnormal smear Sodium (136-145) mEq/L Potassium (3.5-5.1) mEq/L Chloride (98-107) mEq/L Carbon Dioxide (21-32) mEq/L Anion Gap (5-15) BUN (7-18) mg/dL Creatinine (0.55-1.02) mg/dL Est Cr Clr Drug Dosing mL/min Estimated GFR (MDRD) (>60) mL/min BUN/Creatinine Ratio (14-18) Glucose (80-115) mg/dL Calcium (8.5-10.1) mg/dL Magnesium (1.8-2.4) mg/dl Total Bilirubin (0.2-1.0) mg/dL AST (15-37) U/L ALT (14-59) U/L Alkaline Phosphatase (46-116) U/L Total Protein (6.4-8.2) g/dl Albumin (3.4-5.0) g/dl Globulin gm/dL Albumin/Globulin Ratio (1-2) 09/27/19 09/27/19 Range/Units 06:42 12:10 WBC (3.98-10.04) K/mm3 RBC (3.98-5.22) M/mm3 Hgb 12.7 (11.2-15.7) gm/dl Hct 39.5 (34.1-44.9) % MCV (79.4-94.8) fl MCH (25.6-32.2) pg MCHC (32.2-35.5) g/dl RDW Std Deviation (36.4-46.3) fL Plt Count (182-369) K/mm3 MPV (9.4-12.3) fl Neut % (Auto) (34.0-71.1) % Lymph % (Auto) (19.3-51.7) % [place] % (Auto) (4.7-12.5) % Eos % (Auto) (0.7-5.8) Baso % (Auto) (0.1-1.2) % Neut # (Auto) (1.56-6.13) K/mm3 Lymph # (Auto) (1.18-3.74) K/mm3 [place] # (Auto) (0.24-0.36) K/mm3 Eos # (Auto) (0.04-0.36) K/mm3 Baso # (Auto) (0.01-0.08) K/mm3 Manual Slide Review Sodium 139 (136-145) mEq/L Potassium 4.6 (3.5-5.1) mEq/L Chloride 105 (98-107) mEq/L Carbon Dioxide 25 (21-32) mEq/L Anion Gap 13.6 (5-15) BUN 21 H (7-18) mg/dL Creatinine 1.1 H (0.55-1.02) mg/dL Est Cr Clr Drug Dosing 37.60 mL/min Estimated GFR (MDRD) 50 (>60) mL/min BUN/Creatinine Ratio 19.1 H (14-18) Glucose 133 H (80-115) mg/dL Calcium 8.4 L (8.5-10.1) mg/dL Magnesium 2.1 (1.8-2.4) mg/dl Total Bilirubin 0.5 (0.2-1.0) mg/dL AST 22 (15-37) U/L ALT 25 (14-59) U/L Alkaline Phosphatase 144 H (46-116) U/L Total Protein 5.4 L (6.4-8.2) g/dl Albumin 2.3 L (3.4-5.0) g/dl Globulin 3.1 gm/dL Albumin/Globulin Ratio 0.7 L (1-2) Med Orders - Current: Current Medications Acetaminophen (Tylenol) 650 mg PO Q4H PRN PRN Reason: Pain Diphenhydramine HCl (Benadryl) 50 mg IVPUSH Q6H PRN PRN Reason: Anxiety Pantoprazole Sodium 80 mg/ (Sodium Chloride) 100 mls @ 10 mls/hr IV Q10H [facility] Last Admin: 09/27/19 06:41 Dose: 10 mls/hr Morphine Sulfate (Morphine) 2 mg IVPUSH Q2H PRN PRN Reason: Pain (severe 7-10) Stop: 09/27/19 18:40 Last Admin: 09/27/19 11:07 Dose: 2 mg Ondansetron HCl (Zofran) 4 mg IV Q4H PRN PRN Reason: Nausea/Vomiting Sodium Chloride (Saline Flush) 10 ml FLUSH ASDIRECTED PRN PRN Reason: Keep Vein Open Last Admin: 09/26/19 10:56 Dose: 10 ml Discontinued Medications Famotidine (Pepcid) 20 mg IVPUSH ONETIME ONE Stop: 09/26/19 10:36 Last Admin: 09/26/19 10:56 Dose: 20 mg Sodium Chloride (Normal Saline) 1,000 mls @ 999 mls/hr IV ONETIME [facility] Last Admin: 09/26/19 10:56 Dose: 999 mls/hr Lactated Ringer's (Ringers, Lactated) 1,000 mls @ 999 mls/hr IV .BOLUS ONE Stop: 09/26/19 14:13 Last Admin: 09/26/19 13:34 Dose: 999 mls/hr Lactated Ringer's (Ringers, Lactated) 1,000 mls @ 100 mls/hr IV ASDIRECTED [facility] Last Admin: 09/27/19 06:42 Dose: 100 mls/hr Metoclopramide HCl (Reglan) 5 mg IVPUSH ONETIME ONE Stop: 09/26/19 13:14 Last Admin: 09/26/19 13:32 Dose: 5 mg Ondansetron HCl (Zofran) 4 mg IVPUSH ONETIME ONE Stop: 09/26/19 10:36 Last Admin: 09/26/19 10:56 Dose: 4 mg Pantoprazole Sodium (Protonix Iv) 80 mg IVPUSH ONETIME ONE Stop: 09/26/19 13:41 Last Admin: 09/26/19 14:10 Dose: 80 mg - Exam General: Alert, Oriented HEENT: Pupils Equal Neck: Supple Lungs: Clear to Auscultation, Normal Respiratory Effort Cardiovascular: Regular Rate, Regular Rhythm GI/Abdominal Exam: Normal Bowel Sounds, Soft, No Distention, Tender (Epigastric tenderness without guarding or rebound) Back Exam: Normal Inspection Extremities: Normal Inspection, Non-Tender, No Pedal Edema Skin: Warm, Dry, Intact Neurological: No New Focal Deficit Psy/Mental Status: Alert, Normal Affect, Normal Mood Sepsis Event Note - Evaluation Sepsis Screening Result: No Definite Risk - Focused Exam Vital Signs: Vital Signs Temp Pulse Resp BP Pulse Ox 09/27/19 11:14 97.3 F 96 16 114/55 L 92 L 09/27/19 09:28 121/92 H 09/27/19 08:52 98.2 F 90 92 L 09/27/19 04:48 98.1 F 95 18 128/73 92 L Date Exam was Performed: 09/27/19 Time Exam was Performed: 15:00 - Problem List Review Problem List Initiated/Reviewed/Updated: Yes - My Orders Last 24 Hours: My Active Orders 09/26/19 18:38 Oxygen Therapy [RC] PRN Up With Assistance [RC] ASDIRECTED VTE/DVT Education [RC] PER UNIT ROUTINE Vital Signs [RC] Q4HR Morphine 2 mg IVPUSH Q2H PRN Ondansetron [Zofran] 4 mg IV Q4H PRN Resuscitation Status Routine 09/26/19 18:39 Sequential Compression Device [OM.PC] Per Unit Routine 09/26/19 18:40 Antiembolic Devices [RC] BID 09/26/19 18:45 Pantoprazole [ProTONIX IV] 80 mg Sodium Chloride 0.9% [Normal Saline] 100 ml IV Q10H 09/26/19 21:21 diphenhydrAMINE [Benadryl] 50 mg IVPUSH Q6H PRN 09/27/19 13:23 Acetaminophen [Tylenol] 650 mg PO Q4H PRN 09/27/19 18:00 HEMOGLOBIN/HEMATOCRIT,HH [HEME] Routine 09/27/19 Lunch Clear Liquid Diet [DIET] 09/28/19 05:11 CBC WITH AUTO DIFF [HEME] AM COMPREHENSIVE METABOLIC PN,CMP [CHEM] AM MAGNESIUM [CHEM] AM - Plan Plan:: Assessment * Upper GI bleed * Likely secondary to NSAID use, BC powder which contains aspirin and caffeine * Presenting hemoglobin 13.0, current 12.7 * Acute renal injury on stage III chronic renal insufficiency -improved * Creatinine on admission 1.6, baseline 1.1. Renal function back to baseline * BUN 41, currently 21, likely worsened secondary to upper GI bleed * GFR 33, current 50 * Likely secondary to NSAID use and GI bleed * Hold lisinopril * Anxiety * Patient on multiple home meds that were held overnight. * If hemoglobin is stable at 1800 hrs. will restart * Hypertension * Stable blood pressure without treatment * Headache/migraine headache disorder * Likely worsened secondary to caffeine withdrawal from not taking her BC powder * Restart home meds when taking orally Plan * Admit to floor on telemetry * Hemoglobin every 6 hours until stable * DC IV fluids when taking adequate orally * Acetaminophen 650 mg by mouth every 4 hours as needed pain * Morphine 2 mg IV every 2 hours as needed severe pain * Benadryl 50 mg IV every 6 hours as needed anxiety * Restart home meds this evening if hemoglobin stable * Start clear liquids and advance as tolerated this afternoon. * Surgery following * VTE prophylaxis with SCDs * CODE STATUS full code * Plan discharge tomorrow if able to advance diet
[2019-09-27] MEDS ORDERED: ClonazePAM 0.5 MG Tab PO PRN (19:53)
[2019-09-27] MEDS ORDERED: SUMAtriptan 50 MG Tab PO PRN (19:53)
[2019-09-27] MEDS ORDERED: traMADol 50 MG Tab PO PRN (19:53)
[2019-09-27] MEDS ORDERED: Cyclobenzaprine 10 MG Tab PO PRN (19:53)
[2019-09-27] MEDS: busPIRone 15 MG Tab PO SCH (20:46)
[2019-09-27] MEDS: Acyclovir 200 MG Cap PO SCH (20:46)
[2019-09-28] MEDS: Pantoprazole 80 MG in Sodium Chloride 0.9% 100 ML IV SCH (04:22)
[2019-09-28] MEDS: Acetaminophen 325 MG Tab PO PRN ×3 (05:37→23:51)
[2019-09-28] MEDS: Levothyroxine 125 MCG Tab PO SCH (05:37)
[2019-09-28] MEDS: buPROPion 150 MG Tab.ER PO SCH (09:14)
[2019-09-28] MEDS: Acyclovir 200 MG Cap PO SCH ×2 (09:15→21:27)
[2019-09-28] MEDS: DULoxetine 30 MG Cap PO SCH (09:15)
[2019-09-28] MEDS: Lisinopril 20 MG Tab PO SCH (09:15)
[2019-09-28] MEDS ORDERED: Pantoprazole 40 MG Vial IVPUSH SCH (09:15)
[2019-09-28] MEDS: busPIRone 15 MG Tab PO SCH ×2 (09:16→21:25)
--- NOTE | 2019-09-28 13:17 | PCM.CONSN ---
- General Info Date of Service: 09/28/19 Functional Status: Reports: Pain Controlled, Tolerating Diet, Ambulating, Urinating, Other (pt having small amount of blood in stool with mucus, amount is decreasing) - Patient Data Vitals - Most Recent: Last Vital Signs Temp 36.8 C 09/28/19 12:52 Pulse 103 H 09/28/19 12:52 Resp 16 09/28/19 12:52 BP 111/80 09/28/19 12:52 Pulse Ox 100 09/28/19 12:52 Orthostatic Blood Pressure [ 140/78 Supine] Orthostatic Blood Pressure [ 134/74 Sitting] Orthostatic Blood Pressure [ 152/87 Standing] Weight - Most Recent: 113.398 kg I&O - Last 24 Hours: Intake & Output 09/27/19 09/28/19 09/28/19 22:59 06:59 14:59 Intake Total 720 400 Output Total 800 400 Balance -80 0 Lab Results Last 24 Hours: Laboratory Results - last 24 hr 09/27/19 09/28/19 09/28/19 Range/Units 18:05 05:03 05:03 WBC 9.66 (3.98-10.04) K/mm3 RBC 3.91 L (3.98-5.22) M/mm3 Hgb 12.7 11.5 (11.2-15.7) gm/dl Hct 39.7 35.3 (34.1-44.9) % MCV 90.3 (79.4-94.8) fl MCH 29.4 (25.6-32.2) pg MCHC 32.6 (32.2-35.5) g/dl RDW Std Deviation 50.3 H (36.4-46.3) fL Plt Count 171 L (182-369) K/mm3 MPV 9.1 L (9.4-12.3) fl Neut % (Auto) 81.8 H (34.0-71.1) % Lymph % (Auto) 11.9 L (19.3-51.7) % [place] % (Auto) 4.6 L (4.7-12.5) % Eos % (Auto) 1.1 (0.7-5.8) Baso % (Auto) 0.6 (0.1-1.2) % Neut # (Auto) 7.90 H (1.56-6.13) K/mm3 Lymph # (Auto) 1.15 L (1.18-3.74) K/mm3 [place] # (Auto) 0.44 H (0.24-0.36) K/mm3 Eos # (Auto) 0.11 (0.04-0.36) K/mm3 Baso # (Auto) 0.06 (0.01-0.08) K/mm3 Sodium 137 (136-145) mEq/L Potassium 4.1 (3.5-5.1) mEq/L Chloride 104 (98-107) mEq/L Carbon Dioxide 26 (21-32) mEq/L Anion Gap 11.1 (5-15) BUN 11 (7-18) mg/dL Creatinine 0.8 (0.55-1.02) mg/dL Est Cr Clr Drug Dosing 51.70 mL/min Estimated GFR (MDRD) > 60 (>60) mL/min BUN/Creatinine Ratio 13.8 L (14-18) Glucose 95 (80-115) mg/dL Calcium 8.4 L (8.5-10.1) mg/dL Magnesium 2.0 (1.8-2.4) mg/dl Total Bilirubin 0.4 (0.2-1.0) mg/dL AST 17 (15-37) U/L ALT 18 (14-59) U/L Alkaline Phosphatase 119 H (46-116) U/L Total Protein 5.4 L (6.4-8.2) g/dl Albumin 2.1 L (3.4-5.0) g/dl Globulin 3.3 gm/dL Albumin/Globulin Ratio 0.6 L (1-2) 09/28/19 Range/Units 11:00 WBC (3.98-10.04) K/mm3 RBC (3.98-5.22) M/mm3 Hgb 11.7 (11.2-15.7) gm/dl Hct 36.6 (34.1-44.9) % MCV (79.4-94.8) fl MCH (25.6-32.2) pg MCHC (32.2-35.5) g/dl RDW Std Deviation (36.4-46.3) fL Plt Count (182-369) K/mm3 MPV (9.4-12.3) fl Neut % (Auto) (34.0-71.1) % Lymph % (Auto) (19.3-51.7) % [place] % (Auto) (4.7-12.5) % Eos % (Auto) (0.7-5.8) Baso % (Auto) (0.1-1.2) % Neut # (Auto) (1.56-6.13) K/mm3 Lymph # (Auto) (1.18-3.74) K/mm3 [place] # (Auto) (0.24-0.36) K/mm3 Eos # (Auto) (0.04-0.36) K/mm3 Baso # (Auto) (0.01-0.08) K/mm3 Sodium (136-145) mEq/L Potassium (3.5-5.1) mEq/L Chloride (98-107) mEq/L Carbon Dioxide (21-32) mEq/L Anion Gap (5-15) BUN (7-18) mg/dL Creatinine (0.55-1.02) mg/dL Est Cr Clr Drug Dosing mL/min Estimated GFR (MDRD) (>60) mL/min BUN/Creatinine Ratio (14-18) Glucose (80-115) mg/dL Calcium (8.5-10.1) mg/dL Magnesium (1.8-2.4) mg/dl Total Bilirubin (0.2-1.0) mg/dL AST (15-37) U/L ALT (14-59) U/L Alkaline Phosphatase (46-116) U/L Total Protein (6.4-8.2) g/dl Albumin (3.4-5.0) g/dl Globulin gm/dL Albumin/Globulin Ratio (1-2) Med Orders - Current: Current Medications Acetaminophen (Tylenol) 650 mg PO Q4H PRN PRN Reason: Pain Last Admin: 09/28/19 05:37 Dose: 650 mg Acyclovir (Zovirax) 400 mg PO BID [facility] Last Admin: 09/28/19 09:15 Dose: 400 mg Bupropion HCl (Wellbutrin Xl) 450 mg PO DAILY [facility] Last Admin: 09/28/19 09:14 Dose: 450 mg Buspirone HCl (Buspar) 15 mg PO BID [facility] Last Admin: 09/28/19 09:16 Dose: 15 mg Clonazepam (Klonopin) 0.5 mg PO BID PRN PRN Reason: Anxiety Last Admin: 09/28/19 05:38 Dose: 0.5 mg Cyclobenzaprine HCl (Flexeril) 5 - 10 mg PO BID PRN PRN Reason: Spasms Diphenhydramine HCl (Benadryl) 50 mg IVPUSH Q6H PRN PRN Reason: Anxiety Duloxetine HCl (Cymbalta) 90 mg PO DAILY [facility] Last Admin: 09/28/19 09:15 Dose: 90 mg Levothyroxine Sodium (Levothyroxine) 125 mcg PO ACBREAKFAST [facility] Last Admin: 09/28/19 05:37 Dose: 125 mcg Lisinopril (Prinivil) 20 mg PO DAILY [facility] Last Admin: 09/28/19 09:15 Dose: 20 mg Ondansetron HCl (Zofran) 4 mg IV Q4H PRN PRN Reason: Nausea/Vomiting Pantoprazole Sodium (Protonix Iv) 40 mg IVPUSH Q12H [facility] Sodium Chloride (Saline Flush) 10 ml FLUSH ASDIRECTED PRN PRN Reason: Keep Vein Open Last Admin: 09/26/19 10:56 Dose: 10 ml Sumatriptan Succinate (Imitrex) 50 mg PO SEECOMMENT PRN PRN Reason: Migraine Tramadol HCl (Ultram) 50 mg PO Q12H PRN PRN Reason: Pain Discontinued Medications Famotidine (Pepcid) 20 mg IVPUSH ONETIME ONE Stop: 09/26/19 10:36 Last Admin: 09/26/19 10:56 Dose: 20 mg Sodium Chloride (Normal Saline) 1,000 mls @ 999 mls/hr IV ONETIME [facility] Last Admin: 09/26/19 10:56 Dose: 999 mls/hr Lactated Ringer's (Ringers, Lactated) 1,000 mls @ 999 mls/hr IV .BOLUS ONE Stop: 09/26/19 14:13 Last Admin: 09/26/19 13:34 Dose: 999 mls/hr Lactated Ringer's (Ringers, Lactated) 1,000 mls @ 100 mls/hr IV ASDIRECTED [facility] Last Admin: 09/27/19 06:42 Dose: 100 mls/hr Pantoprazole Sodium 80 mg/ (Sodium Chloride) 100 mls @ 10 mls/hr IV Q10H [facility] Last Admin: 09/28/19 04:22 Dose: 10 mls/hr Metoclopramide HCl (Reglan) 5 mg IVPUSH ONETIME ONE Stop: 09/26/19 13:14 Last Admin: 09/26/19 13:32 Dose: 5 mg Morphine Sulfate (Morphine) 2 mg IVPUSH Q2H PRN PRN Reason: Pain (severe 7-10) Stop: 09/27/19 18:40 Last Admin: 09/27/19 11:07 Dose: 2 mg Ondansetron HCl (Zofran) 4 mg IVPUSH ONETIME ONE Stop: 09/26/19 10:36 Last Admin: 09/26/19 10:56 Dose: 4 mg Pantoprazole Sodium (Protonix Iv) 80 mg IVPUSH ONETIME ONE Stop: 09/26/19 13:41 Last Admin: 09/26/19 14:10 Dose: 80 mg Pantoprazole Sodium (Protonix Iv) 40 mg IVPUSH Q12H [facility] Last Admin: 09/28/19 10:51 Dose: Not Given - Exam Quality Assessment: No: Supplemental Oxygen General: Alert, Oriented HEENT: EOMI Neck: Supple GI/Abdominal Exam: Soft, Non-Tender, No Distention Sepsis Event Note - Evaluation Sepsis Screening Result: No Definite Risk - Focused Exam Vital Signs: Vital Signs Temp Pulse Resp BP Pulse Ox 09/28/19 12:52 36.8 C 103 H 16 111/80 100 09/28/19 09:15 104/76 09/28/19 09:13 36.5 C 87 13 104/76 91 L 09/28/19 04:42 36.7 C 89 18 113/66 93 L Date Exam was Performed: 09/28/19 Time Exam was Performed: 13:26 Consult PN Assessment/Plan Procedures: Procedures ANTINUCLEAR ANTIBODIES (03/13/17) ASSAY OF CREATININE (09/03/19) ASSAY OF FREE THYROXINE (10/31/16) ASSAY OF IRON (07/14/19) ASSAY OF MAGNESIUM (04/29/19) ASSAY OF NATRIURETIC PEPTIDE (04/29/19) ASSAY OF PREALBUMIN (12/27/17) ASSAY OF TRANSFERRIN (07/14/19) ASSAY OF TROPONIN QUANT (04/29/19) ASSAY THYROID STIM HORMONE (07/14/19) ASSAY TRIIODOTHYRONINE (T3) (07/27/16) C-REACTIVE PROTEIN (04/29/19) COMPLETE CBC AUTOMATED (02/20/19) COMPLETE CBC W/AUTO DIFF WBC (07/14/19) COMPREHEN METABOLIC PANEL (07/14/19) CREATINE MB FRACTION (04/29/19) CT ANGIOGRAPHY CHEST (04/29/19) DXA BONE DENSITY AXIAL (08/20/17) ELECTROCARDIOGRAM TRACING (04/29/19) EMERGENCY DEPT VISIT (04/29/19) EXTRACRANIAL BILAT STUDY (04/24/17) FIBRIN DEGRADATION QUANT (04/29/19) FLUOROSCOPY <1 HR PHYS/QHP (01/09/18) GLUCOSE BLOOD TEST (04/29/19) GLYCOSYLATED HEMOGLOBIN TEST (07/14/19) LIPID PANEL (04/24/17) MANUAL THERAPY 1/> REGIONS (01/09/18) METABOLIC PANEL TOTAL CA (03/28/19) MR-STAPH DNA AMP PROBE (01/09/18) MRI NECK SPINE W/O DYE (04/09/19) OFFICE/OUTPATIENT VISIT EST (03/28/19) OFFICE/OUTPATIENT VISIT EST (04/22/18) OFFICE/OUTPATIENT VISIT EST (12/27/17) OFFICE/OUTPATIENT VISIT EST (08/20/17) OFFICE/OUTPATIENT VISIT EST (03/23/17) OFFICE/OUTPATIENT VISIT EST (08/03/16) OT EVAL LOW COMPLEX 30 MIN (01/09/18) POLYSOM 6/> YRS 4/> DAVID (02/20/19) POLYSOM 6/>YRS CPAP 4/> PARM (03/20/19) PROTHROMBIN TIME (04/29/19) PT EVAL LOW COMPLEX 20 MIN (01/09/18) RBC SED RATE AUTOMATED (04/22/18) RHEUMATOID FACTOR TEST QUAL (03/13/17) ROUTINE VENIPUNCTURE (09/03/19) SELF CARE MNGMENT TRAINING (01/09/18) THERAPEUTIC EXERCISES (01/09/18) THROMBOPLASTIN TIME PARTIAL (04/29/19) TTE W/DOPPLER COMPLETE (04/03/19) UR ALBUMIN SEMIQUANTITATIVE (06/14/17) URINALYSIS AUTO W/SCOPE (04/29/19) URINE CULTURE/COLONY COUNT (04/17/17) US EXAM ABDO BACK WALL PEREZ (04/24/17) VIT D 1 25-DIHYDROXY (08/20/17) VITAMIN B-12 (02/20/19) VITAMIN D 25 HYDROXY (07/14/19) X-RAY EXAM ABDOMEN 1 VIEW (04/29/19) X-RAY EXAM CHEST 1 VIEW (04/29/19) X-RAY EXAM CHEST 2 VIEWS (03/20/19) X-RAY EXAM NECK SPINE 2-3 VW (10/31/16) X-RAY EXAM OF SHOULDER (01/09/18) (1) Diarrhea SNOMED Code(s): 74316813 Code(s): R19.7 - DIARRHEA, UNSPECIFIED Current Visit: Yes Qualifiers: Diarrhea type: unspecified type Qualified Code(s): R19.7 - Diarrhea, unspecified (2) Upper GI bleed SNOMED Code(s): 73404408 Code(s): K92.2 - GASTROINTESTINAL HEMORRHAGE, UNSPECIFIED Current Visit: Yes Problem List Initiated/Reviewed/Updated: Yes Plan: 63 y/o lady with UGI bleed, likely due to excessive NSAID use with hemorrhagic gastritis. Hg stable and tolerating diet - Advance diet to regular - IV Protonix BID - H. pylori testing She will need an out patient endoscopy at 4 to 6 weeks after this incident. She should follow-up in my office. Bina Appiah MD General surgery
[2019-09-28] MEDS ORDERED: Bismuth Subsalicylate 262 MG/15 ML Susp 236 ML Bottle PO ONE (17:28)
--- NOTE | 2019-09-28 17:33 | PCM.PN ---
- General Info Date of Service: 09/28/19 Admission Dx/Problem (Free Text): Admission Diagnosis/Problem Admission Diagnosis/Problem Gastric hemorrhage Subjective Update: Patient is doing well. Only small amounts of streaked blood on stool. Tolerating clear and full liquid diet. Functional Status: Reports: Pain Controlled - Review of Systems General: Reports: No Symptoms HEENT: Reports: No Symptoms Pulmonary: Reports: No Symptoms Cardiovascular: Reports: No Symptoms Gastrointestinal: Reports: Abdominal Pain (Mild) Musculoskeletal: Reports: No Symptoms - Patient Data Vitals - Most Recent: Last Vital Signs Temp 98.1 F 09/28/19 15:11 Pulse 85 09/28/19 15:11 Resp 14 09/28/19 15:11 BP 99/63 09/28/19 16:00 Pulse Ox 92 L 09/28/19 15:11 Orthostatic Blood Pressure [ 140/78 Supine] Orthostatic Blood Pressure [ 134/74 Sitting] Orthostatic Blood Pressure [ 152/87 Standing] Weight - Most Recent: 250 lb I&O - Last 24 Hours: Intake & Output 09/28/19 09/28/19 09/28/19 06:59 14:59 22:59 Intake Total 400 1440 55 Output Total 400 400 Balance 0 1040 55 Lab Results Last 24 Hours: Laboratory Results - last 24 hr 09/27/19 09/28/19 09/28/19 Range/Units 18:05 05:03 05:03 WBC 9.66 (3.98-10.04) K/mm3 RBC 3.91 L (3.98-5.22) M/mm3 Hgb 12.7 11.5 (11.2-15.7) gm/dl Hct 39.7 35.3 (34.1-44.9) % MCV 90.3 (79.4-94.8) fl MCH 29.4 (25.6-32.2) pg MCHC 32.6 (32.2-35.5) g/dl RDW Std Deviation 50.3 H (36.4-46.3) fL Plt Count 171 L (182-369) K/mm3 MPV 9.1 L (9.4-12.3) fl Neut % (Auto) 81.8 H (34.0-71.1) % Lymph % (Auto) 11.9 L (19.3-51.7) % Todd % (Auto) 4.6 L (4.7-12.5) % Eos % (Auto) 1.1 (0.7-5.8) Baso % (Auto) 0.6 (0.1-1.2) % Neut # (Auto) 7.90 H (1.56-6.13) K/mm3 Lymph # (Auto) 1.15 L (1.18-3.74) K/mm3 Todd # (Auto) 0.44 H (0.24-0.36) K/mm3 Eos # (Auto) 0.11 (0.04-0.36) K/mm3 Baso # (Auto) 0.06 (0.01-0.08) K/mm3 Sodium 137 (136-145) mEq/L Potassium 4.1 (3.5-5.1) mEq/L Chloride 104 (98-107) mEq/L Carbon Dioxide 26 (21-32) mEq/L Anion Gap 11.1 (5-15) BUN 11 (7-18) mg/dL Creatinine 0.8 (0.55-1.02) mg/dL Est Cr Clr Drug Dosing 51.70 mL/min Estimated GFR (MDRD) > 60 (>60) mL/min BUN/Creatinine Ratio 13.8 L (14-18) Glucose 95 (80-115) mg/dL Calcium 8.4 L (8.5-10.1) mg/dL Magnesium 2.0 (1.8-2.4) mg/dl Total Bilirubin 0.4 (0.2-1.0) mg/dL AST 17 (15-37) U/L ALT 18 (14-59) U/L Alkaline Phosphatase 119 H (46-116) U/L Total Protein 5.4 L (6.4-8.2) g/dl Albumin 2.1 L (3.4-5.0) g/dl Globulin 3.3 gm/dL Albumin/Globulin Ratio 0.6 L (1-2) 09/28/19 09/28/19 Range/Units 11:00 17:00 WBC (3.98-10.04) K/mm3 RBC (3.98-5.22) M/mm3 Hgb 11.7 12.2 (11.2-15.7) gm/dl Hct 36.6 37.4 (34.1-44.9) % MCV (79.4-94.8) fl MCH (25.6-32.2) pg MCHC (32.2-35.5) g/dl RDW Std Deviation (36.4-46.3) fL Plt Count (182-369) K/mm3 MPV (9.4-12.3) fl Neut % (Auto) (34.0-71.1) % Lymph % (Auto) (19.3-51.7) % Todd % (Auto) (4.7-12.5) % Eos % (Auto) (0.7-5.8) Baso % (Auto) (0.1-1.2) % Neut # (Auto) (1.56-6.13) K/mm3 Lymph # (Auto) (1.18-3.74) K/mm3 Todd # (Auto) (0.24-0.36) K/mm3 Eos # (Auto) (0.04-0.36) K/mm3 Baso # (Auto) (0.01-0.08) K/mm3 Sodium (136-145) mEq/L Potassium (3.5-5.1) mEq/L Chloride (98-107) mEq/L Carbon Dioxide (21-32) mEq/L Anion Gap (5-15) BUN (7-18) mg/dL Creatinine (0.55-1.02) mg/dL Est Cr Clr Drug Dosing mL/min Estimated GFR (MDRD) (>60) mL/min BUN/Creatinine Ratio (14-18) Glucose (80-115) mg/dL Calcium (8.5-10.1) mg/dL Magnesium (1.8-2.4) mg/dl Total Bilirubin (0.2-1.0) mg/dL AST (15-37) U/L ALT (14-59) U/L Alkaline Phosphatase (46-116) U/L Total Protein (6.4-8.2) g/dl Albumin (3.4-5.0) g/dl Globulin gm/dL Albumin/Globulin Ratio (1-2) [place] Results Last 24 Hours: Microbiology 09/28/19 12:45 Helicobacter pylori Antigen - Final Stool / Feces Positive H Pylori Ag Med Orders - Current: Current Medications Acetaminophen (Tylenol) 650 mg PO Q4H PRN PRN Reason: Pain Last Admin: 09/28/19 14:23 Dose: 650 mg Acyclovir (Zovirax) 400 mg PO BID [facility] Last Admin: 09/28/19 09:15 Dose: 400 mg Bupropion HCl (Wellbutrin Xl) 450 mg PO DAILY [facility] Last Admin: 09/28/19 09:14 Dose: 450 mg Buspirone HCl (Buspar) 15 mg PO BID [facility] Last Admin: 09/28/19 09:16 Dose: 15 mg Clonazepam (Klonopin) 0.5 mg PO BID PRN PRN Reason: Anxiety Last Admin: 09/28/19 05:38 Dose: 0.5 mg Cyclobenzaprine HCl (Flexeril) 5 - 10 mg PO BID PRN PRN Reason: Spasms Diphenhydramine HCl (Benadryl) 50 mg IVPUSH Q6H PRN PRN Reason: Anxiety Duloxetine HCl (Cymbalta) 90 mg PO DAILY [facility] Last Admin: 09/28/19 09:15 Dose: 90 mg Levothyroxine Sodium (Levothyroxine) 125 mcg PO ACBREAKFAST [facility] Last Admin: 09/28/19 05:37 Dose: 125 mcg Lisinopril (Prinivil) 20 mg PO DAILY [facility] Last Admin: 09/28/19 09:15 Dose: 20 mg Ondansetron HCl (Zofran) 4 mg IV Q4H PRN PRN Reason: Nausea/Vomiting Pantoprazole Sodium (Protonix Iv) 40 mg IVPUSH Q12H [facility] Sodium Chloride (Saline Flush) 10 ml FLUSH ASDIRECTED PRN PRN Reason: Keep Vein Open Last Admin: 09/26/19 10:56 Dose: 10 ml Sumatriptan Succinate (Imitrex) 50 mg PO SEECOMMENT PRN PRN Reason: Migraine Tramadol HCl (Ultram) 50 mg PO Q12H PRN PRN Reason: Pain Discontinued Medications Famotidine (Pepcid) 20 mg IVPUSH ONETIME ONE Stop: 09/26/19 10:36 Last Admin: 09/26/19 10:56 Dose: 20 mg Sodium Chloride (Normal Saline) 1,000 mls @ 999 mls/hr IV ONETIME [facility] Last Admin: 09/26/19 10:56 Dose: 999 mls/hr Lactated Ringer's (Ringers, Lactated) 1,000 mls @ 999 mls/hr IV .BOLUS ONE Stop: 09/26/19 14:13 Last Admin: 09/26/19 13:34 Dose: 999 mls/hr Lactated Ringer's (Ringers, Lactated) 1,000 mls @ 100 mls/hr IV ASDIRECTED [facility] Last Admin: 09/27/19 06:42 Dose: 100 mls/hr Pantoprazole Sodium 80 mg/ (Sodium Chloride) 100 mls @ 10 mls/hr IV Q10H [facility] Last Admin: 09/28/19 04:22 Dose: 10 mls/hr Metoclopramide HCl (Reglan) 5 mg IVPUSH ONETIME ONE Stop: 09/26/19 13:14 Last Admin: 09/26/19 13:32 Dose: 5 mg Morphine Sulfate (Morphine) 2 mg IVPUSH Q2H PRN PRN Reason: Pain (severe 7-10) Stop: 09/27/19 18:40 Last Admin: 09/27/19 11:07 Dose: 2 mg Ondansetron HCl (Zofran) 4 mg IVPUSH ONETIME ONE Stop: 09/26/19 10:36 Last Admin: 09/26/19 10:56 Dose: 4 mg Pantoprazole Sodium (Protonix Iv) 80 mg IVPUSH ONETIME ONE Stop: 09/26/19 13:41 Last Admin: 09/26/19 14:10 Dose: 80 mg Pantoprazole Sodium (Protonix Iv) 40 mg IVPUSH Q12H [facility] Last Admin: 09/28/19 10:51 Dose: Not Given - Exam General: Alert, Oriented HEENT: Pupils Equal, Mucous Membr. Moist/[place] Neck: Supple Lungs: Clear to Auscultation, Normal Respiratory Effort Cardiovascular: Regular Rate, Regular Rhythm GI/Abdominal Exam: Normal Bowel Sounds, Soft, No Distention, Tender (Mild epigastric tenderness) Back Exam: Normal Inspection Skin: Warm, Dry, Intact Psy/Mental Status: Alert, Normal Affect, Normal Mood Sepsis Event Note - Evaluation Sepsis Screening Result: No Definite Risk - Focused Exam Vital Signs: Vital Signs Temp Pulse Resp BP BP Pulse Ox 09/28/19 16:00 99/63 09/28/19 15:11 98.1 F 85 14 92 L 09/28/19 12:52 98.2 F 103 H 16 111/80 100 09/28/19 09:15 104/76 09/28/19 09:13 97.7 F 87 13 104/76 91 L Date Exam was Performed: 09/28/19 Time Exam was Performed: 17:34 - Problem List Review Problem List Initiated/Reviewed/Updated: Yes - My Orders Last 24 Hours: My Active Orders 09/27/19 19:53 ClonazePAM [KlonoPIN] 0.5 mg PO BID PRN Cyclobenzaprine [Flexeril] 5 - 10 mg PO BID PRN SUMAtriptan [Imitrex] 50 mg PO SEECOMMENT PRN traMADol [Ultram] 50 mg PO Q12H PRN 09/27/19 21:00 Acyclovir [Zovirax] 400 mg PO BID busPIRone [Buspar] 15 mg PO BID 09/28/19 06:00 Levothyroxine 125 mcg PO ACBREAKFAST 09/28/19 09:00 DULoxetine [Cymbalta] 90 mg PO DAILY buPROPion [Wellbutrin XL] 450 mg PO DAILY lisinopriL [Prinivil] 20 mg PO DAILY 09/28/19 17:28 Bismuth Subsalicylate [Pepto Bismol] 30 ml PO QID ONE 09/28/19 17:45 metroNIDAZOLE [Flagyl] 500 mg PO Q8H 09/28/19 21:00 Doxycycline [Vibramycin] 100 mg PO BID Pantoprazole [ProTONIX IV] 40 mg IVPUSH Q12H 09/28/19 Dinner Regular Diet [DIET] - Plan Plan:: Assessment * Upper GI bleed * Likely secondary to NSAID use, BC powder which contains aspirin and caffeine * Presenting hemoglobin 13.0, current 12.7 * H pylori gastritis * Start bismuth quadruple therapy * We do not have tetracycline on formulary, therefore I will substitute doxycycline. * Acute renal injury on stage III chronic renal insufficiency -improved * Creatinine on admission 1.6, baseline 1.1. Renal function back to baseline * BUN 41, currently 21, likely worsened secondary to upper GI bleed * GFR 33, current 50 * Likely secondary to NSAID use and GI bleed * Hold lisinopril * Anxiety * Patient on multiple home meds that were held overnight. * If hemoglobin is stable at 1800 hrs. will restart * Hypertension * Stable blood pressure without treatment * Headache/migraine headache disorder * Likely worsened secondary to caffeine withdrawal from not taking her BC powder * Restart home meds when taking orally Plan * Admit to floor on telemetry * Hemoglobin every 6 hours until stable * Bismuth quadruple therapy * Restart home meds this evening if hemoglobin stable * Regular diet * Surgery following * VTE prophylaxis with SCDs * CODE STATUS full code * Plan discharge tomorrow if hemoglobin is stable
[2019-09-28] MEDS: metroNIDAZOLE 500 MG Tab PO SCH (18:22)
[2019-09-28] MEDS: Bismuth Subsalicylate 262 MG/15 ML Susp 236 ML Bottle PO SCH (21:26)
[2019-09-28] MEDS: Pantoprazole 40 MG Vial IVPUSH SCH (21:26)
[2019-09-28] MEDS: Doxycycline 100 MG Cap PO SCH (21:27)
[2019-09-29] MEDS: metroNIDAZOLE 500 MG Tab PO SCH ×3 (03:45→09:26)
[2019-09-29] MEDS: Levothyroxine 125 MCG Tab PO SCH (05:45)
[2019-09-29] MEDS: buPROPion 150 MG Tab.ER PO SCH (08:30)
[2019-09-29] MEDS: Doxycycline 100 MG Cap PO SCH (08:31)
[2019-09-29] MEDS: DULoxetine 30 MG Cap PO SCH (08:31)
[2019-09-29] MEDS: Acyclovir 200 MG Cap PO SCH (08:31)
[2019-09-29] MEDS: busPIRone 15 MG Tab PO SCH (08:32)
[2019-09-29] MEDS: Bismuth Subsalicylate 262 MG/15 ML Susp 236 ML Bottle PO SCH ×2 (08:32→12:16)
[2019-09-29] MEDS: Pantoprazole 40 MG Vial IVPUSH SCH (08:33)
[2019-09-29] MEDS: Lisinopril 20 MG Tab PO SCH (08:34)
--- NOTE | 2019-09-29 09:52 | PCM.DCSUM1 ---
Discharge Summary - Hospital Course HPI Initial Comments: 63-year-old female who presented to the emergency room with abdominal pain, nausea, and bright red blood per rectum. Patient states that 2 nights ago she took mag citrate because of constipation and became sick to the stomach. She started vomiting her dinner and developed stomach cramps. She then developed black tarry stool that became bloody. This morning she has had several bloody bowel movements. Patient states she has arthritis of multiple joints and takes BC powders which contain 845 mg of aspirin and 65 mg of caffeine for her pain. She will take a couple of those a day. Patient also drinks sweet tea daily. Currently patient does complain of a headache of approximately 4 out of 10. She denies any lightheadedness. She denies any dizziness with standing. Abdominal pain is mild to moderate currently 3 out of 10. Patient had a similar episode 2 to 3 months, with less blood in her stool. In the emergency room her hemoglobin was 13.0. Repeat when she arrived on the floor was 14.1. PT 10.9, platelet count of 257, BUN 41, creatinine 1.6. Recent creatinine on September 03, 2019 was 1.1. She received 2 L of fluid in the emergency room. She also received Protonix 80 mg IV and Zofran. Diagnosis: Stroke: No - Discharge Data Discharge Date: 09/29/19 Discharge Disposition: Home, Self-Care 01 Condition: Good - Referral to Home Health Primary Care Physician: Martha Peace PA-C - Patient Summary/Data Hospital Course: She was admitted for upper GI bleed. This was likely secondary to BC powder which contains aspirin and caffeine. She did have a positive H. pylori antigen and was started on bismuth quadruple therapy. Also during hospitalization she did have some acute renal injury secondary to hypovolemia on admission. This was corrected with fluid. We followed her hemoglobin, placed her on a PPI, advance her diet, and she went home with no complications. - Patient Instructions Diet: Usual Diet as Tolerated Activity: As Tolerated Driving: May Drive Today Showering/Bathing: May Shower Other/Special Instructions: Follow up with Dr. Godoy and your PCP in the next 1- 2 weeks. - Discharge Plan *PRESCRIPTION DRUG MONITORING PROGRAM REVIEWED*: No *COPY OF PRESCRIPTION DRUG MONITORING REPORT IN PATIENT ROSELIA: No Prescriptions/Med Rec: Bismuth Subsalicylate [Bismatrol] 262 mg PO QID #156 tab.chew Doxycycline [Vibramycin] 100 mg PO BID #26 cap metroNIDAZOLE [Flagyl] 500 mg PO Q8H #39 tablet Pantoprazole [ProTONIX] 40 mg PO BID #26 tab.cr Home Medications: Home Meds Acyclovir 400 mg PO BID 01/08/18 [History] DULoxetine [Cymbalta] 90 mg PO DAILY 01/08/18 [History] Levothyroxine 125 mcg PO DAILY 01/08/18 [History] Lisinopril 20 mg PO DAILY 01/08/18 [History] SUMAtriptan [Imitrex] 50 mg PO ASDIRECTED PRN 01/08/18 [History] buPROPion [buPROPion XL] 450 mg PO DAILY 01/08/18 [History] hydroCHLOROthiazide [Hydrochlorothiazide] 25 mg PO DAILY 01/08/18 [History] traMADol [Ultram] 50 mg PO Q12H PRN 01/08/18 [History] Acetaminophen/Dp-Hydramine [[employer]y's Pm Powder Packet] 1 each PO DAILY 09/26/19 [ History] ClonazePAM [KlonoPIN] 0.5 mg PO BID PRN 09/26/19 [History] Cyclobenzaprine [Flexeril] 5 - 10 mg PO BID PRN 09/26/19 [History] busPIRone [Buspar] 15 mg PO BID 09/26/19 [History] Bismuth Subsalicylate [Bismatrol] 262 mg PO QID #156 tab.chew 09/29/19 [Rx] Doxycycline [Vibramycin] 100 mg PO BID #26 cap 09/29/19 [Rx] Pantoprazole [ProTONIX] 40 mg PO BID #26 tab.cr 09/29/19 [Rx] metroNIDAZOLE [Flagyl] 500 mg PO Q8H #39 tablet 09/29/19 [Rx] Patient Handouts: Gastrointestinal Bleeding, [id number] Referrals: Bina Appiah MD [Physician] - 10/21/19 1:00 am (Please follow up with Dr. Godoy on October 20 at 1pm for a consult for an out patient endoscopy.) Martha Peace PA-C [Primary Care Provider] - 10/07/19 2:00 pm (Please follow up with SANDRA Rice on October 07 at 2pm. Please check in 15 minutes early.) - Discharge Summary/Plan Comment DC Time >30 min.: Yes Discharge Summary/Plan Comment: follow-up with Dr. Godoy and your primary care provider in 1 to 2 weeks. Take all medication until completed. Stop BC powder and all NSAIDs. - General Info Date of Service: 09/29/19 Admission Dx/Problem (Free Text: Admission Diagnosis/Problem Admission Diagnosis/Problem Gastric hemorrhage Subjective Update: Patient is doing well and has no more blood per rectum. Functional Status: Reports: Pain Controlled - Review of Systems General: Reports: No Symptoms HEENT: Reports: No Symptoms Pulmonary: Reports: No Symptoms Cardiovascular: Reports: No Symptoms Gastrointestinal: Reports: No Symptoms Musculoskeletal: Reports: No Symptoms - Patient Data Vitals - Most Recent: Last Vital Signs Temp 98.4 F 09/29/19 07:51 Pulse 84 09/29/19 07:51 Resp 20 09/29/19 07:51 BP 124/78 09/29/19 08:34 Pulse Ox 97 09/29/19 07:51 Orthostatic Blood Pressure [ 140/78 Supine] Orthostatic Blood Pressure [ 134/74 Sitting] Orthostatic Blood Pressure [ 152/87 Standing] Weight - Most Recent: 251 lb 9.6 oz I&O - Last 24 hours: Intake & Output 09/28/19 09/29/19 09/29/19 22:59 06:59 14:59 Intake Total 55 800 Output Total 1200 Balance 55 -400 Lab Results - Last 24 hrs: Laboratory Results - last 24 hr 09/28/19 09/28/19 09/29/19 Range/Units 11:00 17:00 06:03 Hgb 11.7 12.2 12.3 (11.2-15.7) gm/dl Hct 36.6 37.4 37.4 (34.1-44.9) % GERRY Results - Last 24 hrs: Microbiology 09/28/19 12:45 Helicobacter pylori Antigen - Final Stool / Feces Positive H Pylori Ag Med Orders - Current: Current Medications Acetaminophen (Tylenol) 650 mg PO Q4H PRN PRN Reason: Pain Last Admin: 09/28/19 23:51 Dose: 650 mg Acyclovir (Zovirax) 400 mg PO BID [facility] Last Admin: 09/29/19 08:31 Dose: 400 mg Bismuth Subsalicylate (Pepto Bismol) 30 ml PO QID [facility] Last Admin: 09/29/19 08:32 Dose: 30 ml Bupropion HCl (Wellbutrin Xl) 450 mg PO DAILY [facility] Last Admin: 09/29/19 08:30 Dose: 450 mg Buspirone HCl (Buspar) 15 mg PO BID [facility] Last Admin: 09/29/19 08:32 Dose: 15 mg Clonazepam (Klonopin) 0.5 mg PO BID PRN PRN Reason: Anxiety Last Admin: 09/28/19 05:38 Dose: 0.5 mg Cyclobenzaprine HCl (Flexeril) 5 - 10 mg PO BID PRN PRN Reason: Spasms Diphenhydramine HCl (Benadryl) 50 mg IVPUSH Q6H PRN PRN Reason: Anxiety Doxycycline Hyclate (Vibramycin) 100 mg PO BID [facility] Last Admin: 09/29/19 08:31 Dose: 100 mg Duloxetine HCl (Cymbalta) 90 mg PO DAILY [facility] Last Admin: 09/29/19 08:31 Dose: 90 mg Levothyroxine Sodium (Levothyroxine) 125 mcg PO ACBREAKFAST [facility] Last Admin: 09/29/19 05:45 Dose: 125 mcg Lisinopril (Prinivil) 20 mg PO DAILY [facility] Last Admin: 09/29/19 08:34 Dose: 20 mg Metronidazole (Flagyl) 500 mg PO Q8H [facility] Last Admin: 09/29/19 09:26 Dose: Not Given Ondansetron HCl (Zofran) 4 mg IV Q4H PRN PRN Reason: Nausea/Vomiting Pantoprazole Sodium (Protonix Iv) 40 mg IVPUSH Q12H [facility] Last Admin: 09/29/19 08:33 Dose: 40 mg Sodium Chloride (Saline Flush) 10 ml FLUSH ASDIRECTED PRN PRN Reason: Keep Vein Open Last Admin: 09/26/19 10:56 Dose: 10 ml Sumatriptan Succinate (Imitrex) 50 mg PO SEECOMMENT PRN PRN Reason: Migraine Tramadol HCl (Ultram) 50 mg PO Q12H PRN PRN Reason: Pain Last Admin: 09/29/19 05:46 Dose: 50 mg Discontinued Medications Famotidine (Pepcid) 20 mg IVPUSH ONETIME ONE Stop: 09/26/19 10:36 Last Admin: 09/26/19 10:56 Dose: 20 mg Sodium Chloride (Normal Saline) 1,000 mls @ 999 mls/hr IV ONETIME [facility] Last Admin: 09/26/19 10:56 Dose: 999 mls/hr Lactated Ringer's (Ringers, Lactated) 1,000 mls @ 999 mls/hr IV .BOLUS ONE Stop: 09/26/19 14:13 Last Admin: 09/26/19 13:34 Dose: 999 mls/hr Lactated Ringer's (Ringers, Lactated) 1,000 mls @ 100 mls/hr IV ASDIRECTED [facility] Last Admin: 09/27/19 06:42 Dose: 100 mls/hr Pantoprazole Sodium 80 mg/ (Sodium Chloride) 100 mls @ 10 mls/hr IV Q10H [facility] Last Admin: 09/28/19 04:22 Dose: 10 mls/hr Metoclopramide HCl (Reglan) 5 mg IVPUSH ONETIME ONE Stop: 09/26/19 13:14 Last Admin: 09/26/19 13:32 Dose: 5 mg Morphine Sulfate (Morphine) 2 mg IVPUSH Q2H PRN PRN Reason: Pain (severe 7-10) Stop: 09/27/19 18:40 Last Admin: 09/27/19 11:07 Dose: 2 mg Ondansetron HCl (Zofran) 4 mg IVPUSH ONETIME ONE Stop: 09/26/19 10:36 Last Admin: 09/26/19 10:56 Dose: 4 mg Pantoprazole Sodium (Protonix Iv) 80 mg IVPUSH ONETIME ONE Stop: 09/26/19 13:41 Last Admin: 09/26/19 14:10 Dose: 80 mg Pantoprazole Sodium (Protonix Iv) 40 mg IVPUSH Q12H [facility] Last Admin: 09/28/19 10:51 Dose: Not Given - Exam HEENT: Reports: Pupils Equal, Mucous Membr. Moist/[place] Neck: Reports: Supple Lungs: Reports: Clear to Auscultation, Normal Respiratory Effort Cardiovascular: Reports: Regular Rate, Regular Rhythm GI/Abdominal Exam: Normal Bowel Sounds, Soft, Non-Tender, No Organomegaly, No Distention Extremities: Normal Inspection, Normal Range of Motion, Non-Tender, No Pedal Edema
== END 2019-09-29 12:50 | disposition home or self-care (01) | DRG 378 ==
LOC: JD.ED 09:59 → JD.MS 15:59
PROVIDERS: ADMIT Family Medicine; ATTEND Family Medicine
DX: K92.2 Gastrointestinal hemorrhage, unspecified (principal); E86.0 Dehydration; R19.7 Diarrhea, unspecified; R11.2 Nausea with vomiting, unspecified; H91.90 Unspecified hearing loss, unspecified ear; I10 Essential (primary) hypertension; K29.71 Gastritis, unspecified, with bleeding; N17.9 Acute kidney failure, unspecified; F15.93 Other stimulant use, unspecified with withdrawal; T39.395A Adverse effect of other nonsteroidal anti-inflammatory drugs [NSAID], initial encounter; E03.9 Hypothyroidism, unspecified; T39.015A Adverse effect of aspirin, initial encounter; E55.9 Vitamin D deficiency, unspecified; Z86.19 Personal history of other infectious and parasitic diseases; Z86.14 Personal history of Methicillin resistant Staphylococcus aureus infection; T43.615A Adverse effect of caffeine, initial encounter; N18.3 Chronic kidney disease, stage 3 (moderate); F41.9 Anxiety disorder, unspecified; G43.909 Migraine, unspecified, not intractable, without status migrainosus; I12.9 Hypertensive chronic kidney disease with stage 1 through stage 4 chronic kidney disease, or unspecified chronic kidney disease; K59.09 Other constipation; M19.90 Unspecified osteoarthritis, unspecified site; F32.9 Major depressive disorder, single episode, unspecified; E66.9 Obesity, unspecified; Z79.890 Hormone replacement therapy; Z79.899 Other long term (current) drug therapy
CPT/HCPCS: 36415; 80053; 85025; 85610; 96361; 96374; 96375; 99284; C9113; J2405; J2765; J3490; J7030; J7120; 83735; 85014; 85018; 87338; 99222; 99231; 99232; 99239; A9270-GY; J2270; J7050

== ENCOUNTER 2019-11-17 09:15 | Inpatient (IN) | payer MEDICARE, OTHER ==
[2020-01-19] MEDS ORDERED: Sodium Chloride 0.9% 10 ML Syringe FLUSH PRN (00:01)
[2020-01-19] MEDS ORDERED: Lactated Ringers 1,000 ML IV SCH (00:01)
[2020-01-19] MEDS ORDERED: Lidocaine 1%/Sod Bicarbonate in NS 8.4% 1 ML Syringe IDERM PRN (00:01)
[2020-01-19] MEDS ORDERED: Acetaminophen 325 MG Tab PO SCH (06:00)
[2020-01-19] MEDS ORDERED: oxyCODONE ER 10 MG TAB.ER PO SCH (06:00)
[2020-01-19] MEDS ORDERED: Pregabalin 25 MG Cap PO SCH (06:00)
[2020-01-19] MEDS ORDERED: Cyclobenzaprine 10 MG Tab PO PRN (07:00)
[2020-01-19] MEDS ORDERED: Naloxone 0.4 MG/ML SDV IVPUSH PRN (07:01)
[2020-01-19] MEDS ORDERED: Sennosides 8.6 MG Tab PO PRN (07:01)
[2020-01-19] MEDS ORDERED: Magnesium Hydroxide 400 MG/5 ML Susp 30 ML Cup PO PRN (07:01)
[2020-01-19] MEDS ORDERED: Bisacodyl 5 MG Tab PO PRN (07:01)
[2020-01-19] MEDS ORDERED: Ondansetron 4 MG/2 ML SDV IVPUSH PRN ×2 (07:01→12:21)
[2020-01-19] MEDS ORDERED: Famotidine 20 MG Tab PO SCH (07:15)
[2020-01-19] MEDS ORDERED: Ropivacaine 0.5% 5 MG/ML 30 ML SDV ONE (07:28)
[2020-01-19] MEDS ORDERED: Lactated Ringers 1,000 ML ONE (08:00)
[2020-01-19] MEDS ORDERED: Lidocaine 1% 4 ML ONE (08:00)
[2020-01-19] MEDS ORDERED: Lidocaine 1% 2 ML ONE (08:01)
[2020-01-19] MEDS ORDERED: fentaNYL 250 MCG/5 ML SDV ONE (08:01)
[2020-01-19] MEDS ORDERED: Midazolam 1 MG/ML 2 ML SDV ONE ×2 (08:01→10:03)
[2020-01-19] MEDS ORDERED: Propofol 200 MG/20 ML SDV ONE (08:01)
[2020-01-19] MEDS ORDERED: ceFAZolin 1 GM Vial ONE (09:57)
[2020-01-19] MEDS ORDERED: Bupivacaine 0.25% 10 ML SDV ONE (09:57)
--- NOTE | 2020-01-19 10:15 | PCM.CONS ---
H&P History of Present Illness - General Date of Service: 01/19/20 Admit Problem/Dx: Admission Diagnosis/Problem Admission Diagnosis/Problem Osteoarthritis of shoulder Source of Information: Patient, Old Records, Provider, RN, RN Notes Reviewed History Limitations: Reports: No Limitations - History of Present Illness Initial Comments - Free Text/Narative: Delilah Bacon is a 64 yo female patient of Dr. Henry who is post-operative day 0 of left RTSA. Hospital medicine was consulted for post-operative medical care of the following listed medical conditions. At this time she is resting comfortably in bed. Pain is controlled. She denies any chest pain, shortness of breath, palpitations, nausea, or vomiting. She carries a history of: Anxiety, OCTAVIO with CPAP use, OA, Elevated glucose, Depression, Fatigue, Anemia, Memory changes, Migraines, Obesity, Peripheral edema, Type II DM, Vitamin D Deficiency , History of GI Bleed, Hard of hearing, HTN, Hypothyroidism, CKD, Hepatitis C infection with negative viral load, History of MRSA, Chronic neck pain, Chronic constipation, Neck muscle spasms, Herpes, Coronary artery stenosis. She is a full code. Her primary care provider is Martha Peace PA-C. left shoulder Pain Score (Numeric/FACES): 3 - Related Data Allergies/Adverse Reactions: Allergies Allergy/AdvReac Type Severity Reaction Status Date / Time No Known Allergies Allergy Verified 01/18/20 10:52 Home Medications: Home Meds Acyclovir 400 mg PO BID 01/08/18 [History] Levothyroxine 125 mcg PO DAILY 01/08/18 [History] Lisinopril 20 mg PO BID 01/08/18 [History] SUMAtriptan [Imitrex] 50 mg PO ASDIRECTED PRN 01/08/18 [History] buPROPion [buPROPion XL] 150 mg PO DAILY 01/08/18 [History] hydroCHLOROthiazide [Hydrochlorothiazide] 25 mg PO DAILY 01/08/18 [History] ClonazePAM [KlonoPIN] 0.5 mg PO BID PRN 09/26/19 [History] busPIRone [Buspar] 15 mg PO BID 09/26/19 [History] ARIPiprazole [Aripiprazole] 5 mg PO DAILY 01/13/20 [History] Ascorbic Acid [Vitamin C] 500 mg PO DAILY 01/13/20 [History] Calcium Carb/Vitamin D3/Vit K1 [Calcium + D Soft Chewable Tab] 1 tab PO DAILY [History] Cholecalciferol (Vitamin D3) [Vitamin D3] 5,000 unit PO DAILY 01/13/20 [History] DULoxetine [Cymbalta] 120 mg PO DAILY 01/13/20 [History] Ferrous Sulfate [Slow Fe] 140 mg PO DAILY 01/13/20 [History] Fluticasone Propionate [Flonase] 1 dose NASBOTH BID 01/13/20 [History] Furosemide 20 mg PO BID 01/13/20 [History] Hydrocortisone 1 dose RECTAL BID PRN 01/13/20 [History] Magnesium Oxide 250 mg PO DAILY 01/13/20 [History] Multivitamin 1 tab PO DAILY 01/13/20 [History] Potassium Chloride 10 meq PO BID 01/13/20 [History] buPROPion HCL [Wellbutrin Xl] 300 mg PO DAILY 01/13/20 [History] metFORMIN [Glucophage XR] 500 mg PO BID 01/13/20 [History] polyethylene glycoL 3350 [MiraLAX] 1 dose PO DAILY PRN 01/13/20 [History] Omeprazole Magnesium [Prilosec Otc] 20 mg PO DAILY #30 tablet. 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 Immunologic History: Reports: None Oncologic (Cancer) History: Reports: None Dermatologic History: Reports: None Other Dermatologic History: herpes, laceration repair from dog bite - Infectious Disease History Infectious Disease History: Reports: None Other Infectious Disease History: Patient reports herpes - Past Surgical History Head Surgeries/Procedures: Reports: None HEENT Surgical History: Reports: Other (See Below) Other HEENT Surgeries/Procedures: [place] tooth extraction Cardiovascular Surgical History: Reports: None Respiratory Surgical History: Reports: None GI Surgical History: Reports: Colonoscopy Female Surgical History: Reports: Section Endocrine Surgical History: Reports: None Neurological Surgical History: Reports: None Musculoskeletal Surgical History: Reports: Shoulder Replacement, Other (See Below) Other Musculoskeletal Surgeries/Procedures:: Bunion correction Oncologic Surgical History: Reports: None Dermatological Surgical History: Reports: None Social & Family History - Family History Family Medical History: Noncontributory Oncologic: Reports: Breast - Caffeine Use Caffeine Use: Reports: Tea Other Caffeine Use: rarely coffee, tea every day - Living Situation & Occupation Living situation: Reports: Occupation: Retired H&P Review of Systems - Review of Systems: Review Of Systems: See Below General: Reports: No Symptoms. Denies: Fever, Chills HEENT: Reports: No Symptoms. Denies: Headaches, Sore Throat Pulmonary: Reports: No Symptoms. Denies: Shortness of Breath, Wheezing, Pleuritic Chest Pain, Cough, Sputum Cardiovascular: Reports: No Symptoms. Denies: Chest Pain, Palpitations, Dyspnea on Exertion Gastrointestinal: Reports: No Symptoms. Denies: Abdominal Pain, Constipation, Diarrhea, Nausea, Vomiting Genitourinary: Reports: No Symptoms. Denies: Pain Musculoskeletal: Reports: Shoulder Pain (left ) Skin: Reports: No Symptoms. Denies: Cyanosis Psychiatric: Reports: No Symptoms. Denies: Confusion Neurological: Reports: Numbness, Tingling. Denies: Difficulty Walking, Gait Disturbance Hematologic/Lymphatic: Reports: No Symptoms Immunologic: Reports: No Symptoms Exam - Exam Exam: See Below - Vital Signs Vital Signs: Last Vital Signs Temp 97.2 F 01/19/20 09:40 Pulse 94 01/19/20 09:40 Resp 16 01/19/20 09:40 BP 129/81 01/19/20 09:40 Pulse Ox 97 01/19/20 09:40 Weight: 239 lb - Exam Quality Assessment: Supplemental Oxygen (1L), DVT Prophylaxis General: Alert, Oriented, Cooperative. No: Mild Distress HEENT: Conjunctiva Clear, EACs Clear, EOMI, Hearing Intact, Mucosa Moist & [place] , Nares Patent, Posterior Pharynx Clear, PERRLA Neck: Supple, Trachea Midline Lungs: Clear to Auscultation, Normal Respiratory Effort, Decreased Breath Sounds Cardiovascular: Regular Rate, Regular Rhythm GI/Abdominal Exam: Normal Bowel Sounds, Soft, Non-Tender, No Distention (Female) Exam: Deferred Rectal (Female) Exam: Deferred Extremities: No Pedal Edema, Normal Capillary Refill, Arm Pain (Left shoulder ) , Limited Range of Motion, Other (Bandage, sling and swathe in place on left arm. Bandage is dry and intact. Cooling pack in place. ) Peripheral Pulses: 2+: Radial (L), Radial (R), Dorsalis Pedis (L), Dorsalis Pedis (R) Skin: Warm, Dry, Intact Neurological: Cranial Nerves Intact (Grossly ) Neuro Extensive - Mental Status: Alert, Oriented x3, Normal Mood/Affect Sepsis Event Note - Evaluation Sepsis Screening Result: No Definite Risk - Focused Exam Vital Signs: Vital Signs Temp Pulse Resp BP Pulse Ox 01/19/20 09:40 97.2 F 94 16 129/81 97 Date Exam was Performed: 01/19/20 Time Exam was Performed: 14:47 Consult PN Assessment/Plan POD#: 0 Procedures: Procedures ANTINUCLEAR ANTIBODIES (03/13/17) ASSAY OF CREATININE (09/03/19) ASSAY OF FREE THYROXINE (10/31/16) ASSAY OF IRON (01/13/20) ASSAY OF MAGNESIUM (09/26/19) ASSAY OF NATRIURETIC PEPTIDE (04/29/19) ASSAY OF PREALBUMIN (12/27/17) ASSAY OF TRANSFERRIN (10/27/19) ASSAY OF TROPONIN QUANT (04/29/19) ASSAY THYROID STIM HORMONE (01/13/20) ASSAY TRIIODOTHYRONINE (T3) (07/27/16) BREAST TOMOSYNTHESIS BI (01/02/20) C-REACTIVE PROTEIN (04/29/19) COMPLETE CBC AUTOMATED (10/13/19) COMPLETE CBC W/AUTO DIFF WBC (01/13/20) COMPREHEN METABOLIC PANEL (01/13/20) CREATINE MB FRACTION (04/29/19) CT ANGIOGRAPHY CHEST (04/29/19) DXA BONE DENSITY AXIAL (08/20/17) ELECTROCARDIOGRAM TRACING (10/27/19) EMERGENCY DEPT VISIT (09/26/19) EMERGENCY DEPT VISIT (04/29/19) EXTRACRANIAL BILAT STUDY (04/24/17) FIBRIN DEGRADATION QUANT (04/29/19) FLUOROSCOPY <1 HR PHYS/QHP (01/09/18) GLUCOSE BLOOD TEST (04/29/19) GLYCOSYLATED HEMOGLOBIN TEST (01/13/20) HEMATOCRIT (09/26/19) HEMOGLOBIN (09/26/19) HPYLORI STOOL IA (09/26/19) HYDRATE IV INFUSION ADD-ON (09/26/19) LIPID PANEL (04/24/17) MANUAL THERAPY 1/> REGIONS (01/09/18) METABOLIC PANEL TOTAL CA (10/13/19) MR-STAPH DNA AMP PROBE (01/09/18) MRI NECK SPINE W/O DYE (04/09/19) OFFICE/OUTPATIENT VISIT EST (10/27/19) OFFICE/OUTPATIENT VISIT EST (03/28/19) OFFICE/OUTPATIENT VISIT EST (04/22/18) OFFICE/OUTPATIENT VISIT EST (12/27/17) OFFICE/OUTPATIENT VISIT EST (08/20/17) OFFICE/OUTPATIENT VISIT EST (03/23/17) OFFICE/OUTPATIENT VISIT EST (08/03/16) OT EVAL LOW COMPLEX 30 MIN (01/09/18) POLYSOM 6/> YRS 4/> DAVID (02/20/19) POLYSOM 6/>YRS CPAP 4/> PARM (03/20/19) PROTHROMBIN TIME (01/13/20) PT EVAL LOW COMPLEX 20 MIN (01/09/18) RBC SED RATE AUTOMATED (04/22/18) RHEUMATOID FACTOR TEST QUAL (03/13/17) ROUTINE VENIPUNCTURE (01/13/20) SCR MAMMO BI INCL CAD (01/02/20) SELF CARE MNGMENT TRAINING (01/09/18) THER/PROPH/DIAG INJ IV PUSH (09/26/19) THERAPEUTIC EXERCISES (01/09/18) THROMBOPLASTIN TIME PARTIAL (01/13/20) TTE W/DOPPLER COMPLETE (04/03/19) TX/PRO/DX INJ NEW DRUG ADDON (09/26/19) UR ALBUMIN SEMIQUANTITATIVE (06/14/17) URINALYSIS AUTO W/SCOPE (01/13/20) URINE CULTURE/COLONY COUNT (01/13/20) US EXAM ABDO BACK WALL PEREZ (04/24/17) VIT D 1 25-DIHYDROXY (08/20/17) VITAMIN B-12 (02/20/19) VITAMIN D 25 HYDROXY (01/13/20) X-RAY EXAM ABDOMEN 1 VIEW (04/29/19) X-RAY EXAM CHEST 1 VIEW (04/29/19) X-RAY EXAM CHEST 2 VIEWS (10/27/19) X-RAY EXAM NECK SPINE 2-3 VW (10/31/16) X-RAY EXAM OF SHOULDER (01/09/18) (1) Anxiety SNOMED Code(s): 61503517 Code(s): F41.9 - ANXIETY DISORDER, UNSPECIFIED Priority: Low Current Visit: No (2) OCTAVIO on CPAP SNOMED Code(s): 44072041 Code(s): G47.33 - OBSTRUCTIVE SLEEP APNEA (ADULT) (PEDIATRIC); Z99.89 - DEPENDENCE ON OTHER ENABLING MACHINES AND DEVICES Priority: Medium Current Visit: Yes (3) Elevated glucose SNOMED Code(s): 73491505 Code(s): R73.09 - OTHER ABNORMAL GLUCOSE Priority: Medium Current Visit: No (4) Depression SNOMED Code(s): 56409659 Code(s): F32.9 - MAJOR DEPRESSIVE DISORDER, SINGLE EPISODE, UNSPECIFIED Priority: Low Current Visit: No Qualifiers: Depression Type: other depression Qualified Code(s): F32.89 - Other specified depressive episodes (5) Fatigue SNOMED Code(s): 22521177 Code(s): R53.83 - OTHER FATIGUE Priority: Low Current Visit: No Qualifiers: Fatigue type: unspecified Qualified Code(s): R53.83 - Other fatigue (6) Anemia SNOMED Code(s): 065777899 Code(s): D64.9 - ANEMIA, UNSPECIFIED Priority: Low Current Visit: No Qualifiers: Anemia type: unspecified type Qualified Code(s): D64.9 - Anemia, unspecified (7) Memory changes SNOMED Code(s): 757878577 Code(s): R41.3 - OTHER AMNESIA Priority: Low Current Visit: No (8) Migraines SNOMED Code(s): 88479557 Code(s): G43.909 - MIGRAINE, UNSP, NOT INTRACTABLE, WITHOUT STATUS MIGRAINOSUS Priority: Low Current Visit: No Qualifiers: Migraine type: unspecified Status migrainosus presence: without status migrainosus Intractability: not intractable Qualified Code(s): G43.909 - Migraine, unspecified, not intractable, without status migrainosus (9) Peripheral edema SNOMED Code(s): 391312534 Code(s): R60.9 - EDEMA, UNSPECIFIED Priority: Low Current Visit: No (10) Type II diabetes mellitus SNOMED Code(s): 09075270 Code(s): E11.9 - TYPE 2 DIABETES MELLITUS WITHOUT COMPLICATIONS Priority: Medium Current Visit: No Qualifiers: Diabetes mellitus detention insulin use: unspecified 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 Diabetes mellitus complication status: with other specified complication Qualified Code(s): E11.69 - Type 2 diabetes mellitus with other specified complication (11) Vitamin D deficiency SNOMED Code(s): 26297302 Code(s): E55.9 - VITAMIN D DEFICIENCY, UNSPECIFIED Priority: Low Current Visit: No (12) [place] (hard of hearing) SNOMED Code(s): 76028477 Code(s): H91.90 - UNSPECIFIED HEARING LOSS, UNSPECIFIED EAR Priority: Low Current Visit: No Qualifiers: Hearing loss type: unspecified Laterality: unspecified laterality Qualified Code(s): H91.90 - Unspecified hearing loss, unspecified ear (13) Hypothyroid SNOMED Code(s): 63435098 Code(s): E03.9 - HYPOTHYROIDISM, UNSPECIFIED Priority: Low Current Visit : No Qualifiers: Hypothyroidism type: unspecified Qualified Code(s): E03.9 - Hypothyroidism , unspecified (14) CKD (chronic kidney disease) SNOMED Code(s): 402080885 Code(s): N18.9 - CHRONIC KIDNEY DISEASE, UNSPECIFIED Priority: Medium Current Visit: No Qualifiers: Chronic kidney disease stage: unspecified stage Qualified Code(s): N18.9 - Chronic kidney disease, unspecified (15) HTN (hypertension) SNOMED Code(s): 44165057 Code(s): I10 - ESSENTIAL (PRIMARY) HYPERTENSION Priority: Medium Current Visit: No Qualifiers: Hypertension type: unspecified Qualified Code(s): I10 - Essential (primary ) hypertension (16) Hepatitis C SNOMED Code(s): 88297367 Code(s): B19.20 - UNSPECIFIED VIRAL HEPATITIS C WITHOUT HEPATIC COMA Priority: Low Current Visit: No Qualifiers: Viral hepatitis chronicity: chronic Hepatic coma status: without hepatic coma Qualified Code(s): B18.2 - Chronic viral hepatitis C (17) History of GI bleed SNOMED Code(s): 898712108 Code(s): Z87.19 - PERSONAL HISTORY OF OTHER DISEASES OF THE DIGESTIVE SYSTEM Priority: Medium Current Visit: No (18) History of MRSA infection SNOMED Code(s): 114360451, 305651335 Code(s): Z86.14 - PERSONAL HISTORY OF METHICILLIN RESIS STAPH INFECTION Priority: Low Current Visit: No (19) Osteoarthritis SNOMED Code(s): 402744619 Code(s): M19.90 - UNSPECIFIED OSTEOARTHRITIS, UNSPECIFIED SITE Priority: High Current Visit: Yes Qualifiers: Osteoarthritis location: shoulder Osteoarthritis type: unspecified Laterality: left Qualified Code(s): M19.012 - Primary osteoarthritis, left shoulder (20) Status post total shoulder arthroplasty SNOMED Code(s): 186282321, 904245009 Code(s): Z96.619 - PRESENCE OF UNSPECIFIED ARTIFICIAL SHOULDER JOINT Priority: High Current Visit: Yes Qualifiers: Laterality: left Qualified Code(s): Z96.612 - Presence of left artificial shoulder joint (21) Herpes Priority: Low Current Visit: No (22) Chronic neck pain SNOMED Code(s): 1097150657405 Code(s): M54.2 - CERVICALGIA; G89.29 - OTHER CHRONIC PAIN Priority: Medium Current Visit: No (23) Coronary artery stenosis SNOMED Code(s): 838492905, 532200496 Code(s): I25.10 - ATHSCL HEART DISEASE OF [place] CORONARY ARTERY W/O ANG PCTRS Priority: Medium Current Visit: No (24) Chronic constipation SNOMED Code(s): 871623607 Code(s): K59.09 - OTHER CONSTIPATION Priority: Low Current Visit: No (25) Neck muscle spasm SNOMED Code(s): 026517249599 Code(s): M62.838 - OTHER MUSCLE SPASM Priority: Low Current Visit: No Problem List Initiated/Reviewed/Updated: Yes Plan: I/P: Acute: S/P left reverse total shoulder arthroplasty - post-operative day 0 -DVT prophylaxis and pain management per primary care team -PT/OT -IS/RT -Monitor oxygen saturation -Titrate oxygen as needed -Home medications reviewed -Vital signs stable -Monitor labs -Pre-operative Hgb was 13.4 -Pre-operative GFR was 60 -Pre-operative A1C was 6.4% Osteoarthritis of left shoulder -Pain management per primary care team Chronic: Anxiety OCTAVIO with CPAP use Elevated glucose Depression Fatigue Anemia Memory changes Migraines Obesity Peripheral edema Type II DM Vitamin D Deficiency History of GI Bleed Hard of hearing HTN Hypothyroidism CKD Hepatitis C infection with negative viral load History of MRSA Chronic neck pain Chronic constipation Neck muscle spasms Herpes Coronary artery stenosis Plan: CM for discharge planning GI prophylaxis Home medications as indicated Other orders as listed above Routine AM labs She is a full code. Her PCP is Martha Peace PA-C Thank you for allowing us to participate in the care of this patient!! Requesting Provider: Dr. Henry Date Consult Requested: 01/19/20 Patient History Reviewed: Yes Admission H&P Reviewed: Yes Notified Requestor: Yes
[2020-01-19] MEDS: ceFAZolin 1 GM Vial ONE ×2 (12:12→12:35)
[2020-01-19] MEDS: Iodine/Sodium Iodide 2% Tincture 30 ML Bottle ONE ×2 (12:12→12:35)
[2020-01-19] MEDS: Vancomycin 1 GM SDV ONE ×2 (12:13→12:40)
--- NOTE | 2020-01-19 12:20 | PCM.PREANE ---
Preanesthetic Assessment - Procedure Proposed Procedure: Left Reverse Total Shoulder Arthroplasty - Anesthesia/Transfusion/Family Hx Anesthesia History: Prior Anesthesia Without Reaction Family History of Anesthesia Reaction: No Transfusion History: No Prior Transfusion(s) Intubation History: Unknown - Review of Systems General: Fatigue Pulmonary: No Symptoms (OCTAVIO with CPAP use) Cardiovascular: No Symptoms, Other (Hypertension) Gastrointestinal: No Symptoms Neurological: Tremors (Upper extremities with anxiety.), Difficulty Walking ( Significant Knee Pain Right Side. ) Other: Reports: None (Morbid Obesity BMI 48 today. ), Easy Bleeding, Easy Bruising (Upper GI bleed about 4 months ago), Diabetes (Type II, Blood glucose 96 mg/dl), Neck Pain (Intermittent, does not bother her today. Full ROM. ), Depression, Anxiety - Physical Assessment NPO Status Date: 01/18/20 NPO Status Time: 20:30 Vital Signs: Last Vital Signs Temp 36.2 C 01/19/20 09:40 Pulse 94 01/19/20 09:40 Resp 16 01/19/20 09:40 BP 129/81 01/19/20 09:40 Pulse Ox 97 01/19/20 09:40 Height: 1.5 m Weight: 108.409 kg ASA Class: 3 Mental Status: Alert & Oriented x3 Airway Class: Mallampati = 2 Dentition: Reports: Normal Dentition Thyro-Mental Finger Breadths: 3 Mouth Opening Finger Breadths: 2 ROM/Head Extension: Full Lungs: Decreased Breath Sounds Cardiovascular: Regular Rate, Regular Rhythm - Lab Values: Laboratory Last Values SARS Virus RNA (PCR) Negative (NEGATIVE) 01/16/20 09:07 MRSA (PCR) Negative 01/07/20 16:45 - Allergies Allergies/Adverse Reactions: Allergies Allergy/AdvReac Type Severity Reaction Status Date / Time No Known Allergies Allergy Verified 01/18/20 10:52 - Anesthesia Plan Pre-Op Medication Ordered: Anxiolytic - Acknowledgements Anesthesia Type Planned: General Anesthesia, Regional Block (Preop interscalene nerve block) Pt an Appropriate Candidate for the Planned Anesthesia: Yes Alternatives and Risks of Anesthesia Discussed w Pt/Guardian: Yes Pt/Guardian Understands and Agrees with Anesthesia Plan: Yes PreAnesthesia Questionnaire HEENT History: Reports: Allergic Rhinitis Other HEENT History: Hearing loss Cardiovascular History: Reports: Hypertension Other Cardiovascular History: coronary artery stenosis Respiratory History: Reports: Sleep Apnea, Other (See Below) Other Respiratory History: Cough Gastrointestinal History: Reports: Chronic Constipation, GI Bleed Genitourinary History: Reports: None 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 Immunologic History: Reports: None Oncologic (Cancer) History: Reports: None Dermatologic History: Reports: None Other Dermatologic History: herpes, laceration repair from dog bite - Infectious Disease History Infectious Disease History: Reports: None Other Infectious Disease History: Patient reports herpes - Past Surgical History Head Surgeries/Procedures: Reports: None HEENT Surgical History: Reports: Other (See Below) Other HEENT Surgeries/Procedures: [place] tooth extraction Cardiovascular Surgical History: Reports: None Respiratory Surgical History: Reports: None GI Surgical History: Reports: Colonoscopy Female Surgical History: Reports: Section Endocrine Surgical History: Reports: None Neurological Surgical History: Reports: None Musculoskeletal Surgical History: Reports: Shoulder Replacement, Other (See Below) Other Musculoskeletal Surgeries/Procedures:: Bunion correction Oncologic Surgical History: Reports: None Dermatological Surgical History: Reports: None - HOME MEDS Home Medications: Home Meds Acyclovir 400 mg PO BID 01/08/18 [History] Levothyroxine 125 mcg PO DAILY 01/08/18 [History] Lisinopril 20 mg PO BID 01/08/18 [History] SUMAtriptan [Imitrex] 50 mg PO ASDIRECTED PRN 01/08/18 [History] buPROPion [buPROPion XL] 150 mg PO DAILY 01/08/18 [History] hydroCHLOROthiazide [Hydrochlorothiazide] 25 mg PO DAILY 01/08/18 [History] ClonazePAM [KlonoPIN] 0.5 mg PO BID PRN 09/26/19 [History] busPIRone [Buspar] 15 mg PO BID 09/26/19 [History] ARIPiprazole [Aripiprazole] 5 mg PO DAILY 01/13/20 [History] Ascorbic Acid [Vitamin C] 500 mg PO DAILY 01/13/20 [History] Calcium Carb/Vitamin D3/Vit K1 [Calcium + D Soft Chewable Tab] 1 tab PO DAILY [History] Cholecalciferol (Vitamin D3) [Vitamin D3] 5,000 unit PO DAILY 01/13/20 [History] DULoxetine [Cymbalta] 120 mg PO DAILY 01/13/20 [History] Ferrous Sulfate [Slow Fe] 140 mg PO DAILY 01/13/20 [History] Fluticasone Propionate [Flonase] 1 dose NASBOTH BID 01/13/20 [History] Furosemide 20 mg PO BID 01/13/20 [History] Hydrocortisone 1 dose RECTAL BID PRN 01/13/20 [History] Magnesium Oxide 250 mg PO DAILY 01/13/20 [History] Multivitamin 1 tab PO DAILY 01/13/20 [History] Potassium Chloride 10 meq PO BID 01/13/20 [History] buPROPion HCL [Wellbutrin Xl] 300 mg PO DAILY 01/13/20 [History] metFORMIN [Glucophage XR] 500 mg PO BID 01/13/20 [History] polyethylene glycoL 3350 [MiraLAX] 1 dose PO DAILY PRN 01/13/20 [History] Omeprazole Magnesium [Prilosec Otc] 20 mg PO DAILY #30 tablet. 01/14/20 [Rx] Acetaminophen/HYDROcodone [Rebuck 325-5 MG] 2 tab PO ASDIRECTED PRN 01/19/20 [ History] - CURRENT (IN HOUSE) MEDS Current Meds: Current Medications Acetaminophen (Tylenol) 975 mg PO ONETIME [facility] Stop: 01/19/20 14:00 Last Admin: 01/19/20 09:44 Dose: 975 mg Aspirin (Halfprin) 81 mg PO DAILY [facility] Bisacodyl (Dulcolax) 5 mg PO DAILY PRN PRN Reason: Constipation Cyclobenzaprine HCl (Flexeril) 10 mg PO TID PRN PRN Reason: Spasms Docusate Sodium (Colace) 100 mg PO BID [facility] Lactated Ringer's (Ringers, Lactated) 1,000 mls @ 125 mls/hr IV ASDIRECTED [facility] Stop: 01/19/20 23:00 Last Admin: 01/19/20 09:55 Dose: 125 mls/hr Cefazolin Sodium/Dextrose 2 gm (/ Premix) 50 mls @ 100 mls/hr IV Q8H [facility] Stop: 01/20/20 10:29 Ketorolac Tromethamine (Toradol) 15 mg IVPUSH Q6H PRN PRN Reason: Pain Lidocaine/Sodium Bicarbonate (Buffered Lidocaine 1% In Ns 8.4%) 0.25 ml IDERM ONETIME PRN PRN Reason: Prior to IV Start Stop: 01/19/20 18:00 Last Admin: 01/19/20 09:53 Dose: 0.25 ml Magnesium Hydroxide (Milk Of Magnesia) 30 ml PO BID PRN PRN Reason: Constipation Morphine Sulfate (Morphine) 2 mg IVPUSH Q2H PRN PRN Reason: Breakthrough Pain Naloxone HCl (Narcan) 0.1 mg IVPUSH Q5M PRN PRN Reason: Oversedation Ondansetron HCl (Zofran) 4 mg IVPUSH Q6H PRN PRN Reason: Nausea/Vomiting Oxycodone HCl (Oxycontin) 10 mg PO ONETIME [facility] TO [facility] Stop: 01/19/20 14:00 Last Admin: 01/19/20 09:43 Dose: 10 mg Oxycodone/Acetaminophen (Percocet 325-5 Mg) 1 - 2 tab PO Q4H PRN PRN Reason: Pain Pantoprazole Sodium (Protonix) 40 mg PO DAILY [facility]END[facility] TO [facility] Pregabalin (Lyrica) 50 mg PO ONETIME [facility] Stop: 01/19/20 14:00 Last Admin: 01/19/20 09:44 Dose: 50 mg Senna (Senna) 8.6 mg PO BID PRN PRN Reason: Constipation Sodium Chloride (Saline Flush) 10 ml FLUSH ASDIRECTED PRN PRN Reason: Keep Vein Open Stop: 01/19/20 18:00 Discontinued Medications Bupivacaine HCl (Sensorcaine-Mpf 0.25%) Confirm Administered Dose 30 ml .ROUTE .STK-MED ONE Stop: 01/19/20 09:58 Cefazolin Sodium (Ancef) Confirm Administered Dose 2 gm .ROUTE .STK-MED ONE Stop: 01/19/20 08:01 Cefazolin Sodium (Ancef) Confirm Administered Dose 2 gm .ROUTE .STK-MED ONE Stop: 01/19/20 09:58 Famotidine (Pepcid) 20 mg PO Q12H PENDING SALE TO [facility] Fentanyl (Sublimaze) Confirm Administered Dose 250 mcg .ROUTE .STK-MED ONE Stop: 01/19/20 08:02 Lidocaine HCl (Xylocaine-Mpf 1%) Confirm Administered Dose 4 mls @ as directed .ROUTE .STK-MED ONE Stop: 01/19/20 08:01 Lactated Ringer's (Ringers, Lactated) Confirm Administered Dose 1,000 mls @ as directed .ROUTE .STK-MED ONE Stop: 01/19/20 08:01 Lidocaine HCl (Xylocaine-Mpf 1%) Confirm Administered Dose 2 mls @ as directed .ROUTE .STK-MED ONE Stop: 01/19/20 08:02 Iodine (Iodine 2% Mild Tincture) Confirm Administered Dose 30 ml .ROUTE .STK- MED ONE Stop: 01/19/20 09:58 Midazolam HCl (Versed 1 Mg/Ml) Confirm Administered Dose 2 mg .ROUTE .STK-MED ONE Stop: 01/19/20 08:02 Midazolam HCl (Versed 1 Mg/Ml) Confirm Administered Dose 2 mg .ROUTE .STK-MED ONE Stop: 01/19/20 10:04 Miscellaneous Medication (Phenylephrine 1 Mg/10 Ml-Ns) Confirm Administered Dose 1 mg IV .STK-MED ONE Stop: 01/19/20 12:02 Propofol (Diprivan 20 Ml) Confirm Administered Dose 400 mg .ROUTE .STK-MED ONE Stop: 01/19/20 08:02 Ropivacaine (Naropin 0.5%) Confirm Administered Dose 30 ml .ROUTE .STK-MED ONE Stop: 01/19/20 07:29 Tranexamic Acid (Cyklokapron) Confirm Administered Dose 1,000 mg .ROUTE .STK- MED ONE Stop: 01/19/20 09:58 Vancomycin HCl (Vancomycin) Confirm Administered Dose 1 gm .ROUTE .STK-MED ONE Stop: 01/19/20 09:58
[2020-01-19] MEDS ORDERED: HYDROmorphone 0.5 MG/0.5 ML Syringe IVPUSH PRN (12:21)
[2020-01-19] MEDS ORDERED: fentaNYL 100 MCG/2 ML SDV IVPUSH PRN (12:21)
--- NOTE | 2020-01-19 12:25 | PCM.SN.2 ---
- Free Text/Narrative Note: Anesthesia Procedure Note: (Interscalene Block Note) Date: 01/19/2020 Time Out: 1038 Start: 1044 Stop: 1049 Current Procedure: Left Interscalene Block under US guidance for postoperative pain control requested by Dr. Henry. Patient chart reviewed, risk/benefits discussed with patient, consent obtained. Patient positioned supine, monitors/alarms on, oxygen placed via nasal cannula at 2 LPM. Left shoulder prepped with two chloropreps. Sterile drapes placed with aseptic technique noted. Under US guidance right subclavian artery visualized along with the left brachial plexus. Plexus followed up to C6 cricoid level, and area localized with 1mls of 1% lidocaine. 22gauge 2 inch stimiplex needle advanced under US with 0.6mV with stimulation of biceps noted. Good stimulation noted with decreased voltage and absent at 0.2mVs. 1ml of Normal Saline injected with loss of stimulation noted to confirm needle not placed intraneurally. Incremental dosing of 5mls with negative aspiration noted prior to each injection of 0.5% ropivacaine with 1:200,000 epinephrine. Total volume=30mls. Mrs. Bacon tolerated the procedure well. No complications were noted. Vital signs stable throughout the procedure. See Nursing Notes for vital signs. Vital signs stable throughout. Manjit Ni CRNA
[2020-01-19] MEDS ORDERED: Ketorolac 15 MG/ML SDV IVPUSH PRN (13:00)
--- NOTE | 2020-01-19 13:24 | PCM.POSTAN ---
POST ANESTHESIA ASSESSMENT - MENTAL STATUS Mental Status: Alert, Oriented - VITAL SIGNS Vital Signs: Last Vital Signs Temp 36.2 C 01/19/20 09:40 Pulse 94 01/19/20 09:40 Resp 16 01/19/20 09:40 BP 129/81 01/19/20 09:40 Pulse Ox 97 01/19/20 09:40 1315 97.1F 88 116/61 14 98% - RESPIRATORY Respiratory Status: Respiratory Rate WNL, Airway Patent, O2 Saturation Stable, Supplemental Oxygen - CARDIOVASCULAR CV Status: Pulse Rate WNL, Blood Pressure Stable - GASTROINTESTINAL GI Status: No Symptoms - PAIN Pain Score: 0 - POST OP HYDRATION Hydration Status: Adequate & Stable
--- NOTE | 2020-01-19 13:53 | CR ---
Left shoulder: Single AP view of the left shoulder was obtained. Comparison: Previous operative study performed earlier on the same day. Recently placed left shoulder prosthesis is seen. Components are aligned. Underlying bony structures are intact. Impression: 1. Left shoulder prosthesis. Diagnostic code #2 This report was dictated in MDT
--- NOTE | 2020-01-19 13:54 | CR ---
Left shoulder: 2 fluoroscopic spot views left shoulder were obtained utilizing C-arm device. Comparison: No prior left shoulder studies available. Study shows placement of a reverse left shoulder prosthesis. Fluoroscopy time given as 3.6 seconds. Impression: 1. Procedural study as noted above. Diagnostic code #2 This report was dictated in MDT
[2020-01-19] MEDS ORDERED: ClonazePAM 0.5 MG Tab PO PRN (15:37)
[2020-01-19] MEDS: Pantoprazole 40 MG Tab.CR PO SCH (16:37)
[2020-01-19] MEDS: Acetaminophen/oxyCODONE 325-5 MG Tab PO PRN ×2 (17:09→23:02)
[2020-01-19] MEDS: ceFAZolin 2 GM in Premix Bag 1 BAG IV SCH (17:17)
[2020-01-19] MEDS: busPIRone 15 MG Tab PO SCH (20:37)
[2020-01-19] MEDS: Docusate Sodium 100 MG Cap PO SCH (20:38)
[2020-01-19] MEDS: Acyclovir 200 MG Cap PO SCH (20:38)
[2020-01-19] MEDS: Cyclobenzaprine 10 MG Tab PO PRN (20:40)
[2020-01-19] MEDS ORDERED: Fluticasone Propionate Nasal Spray 16 GM Bottle NASBOTH SCH (21:00)
[2020-01-20] MEDS: Morphine 2 MG/ML Syringe IVPUSH PRN ×2 (02:11→02:19)
[2020-01-20] MEDS: ceFAZolin 2 GM in Premix Bag 1 BAG IV SCH ×2 (02:26→09:03)
[2020-01-20] MEDS ORDERED: Levothyroxine 125 MCG Tab PO SCH (06:00)
[2020-01-20] MEDS: Acetaminophen/oxyCODONE 325-5 MG Tab PO PRN (06:14)
--- NOTE | 2020-01-20 08:04 | PCM.SURGPN ---
- General Info Date of Service: 01/20/20 POD#: 1 Functional Status: Reports: Pain Controlled, Tolerating Diet, Ambulating, Urinating, Incentive Spirometry, Other (The pt states she has adjusted the immobilizer a few times for comfort.) - Patient Data Vitals - Most Recent: Last Vital Signs Temp 98.2 F 01/20/20 04:02 Pulse 97 01/20/20 04:02 Resp 18 01/20/20 04:02 BP 129/66 01/20/20 04:02 Pulse Ox 96 01/20/20 04:02 Weight - Most Recent: 243 lb I&O - Last 24 Hours: Intake & Output 01/19/20 01/20/20 01/20/20 22:59 06:59 14:59 Intake Total 590 1200 Output Total 400 500 Balance 190 700 Lab Results Last 24 Hrs: Laboratory Results - last 24 hr 01/20/20 01/20/20 Range/Units 06:20 06:20 WBC 7.98 (3.98-10.04) K/mm3 RBC 3.85 L (3.98-5.22) M/mm3 Hgb 11.2 D (11.2-15.7) gm/dl Hct 36.4 (34.1-44.9) % MCV 94.5 (79.4-94.8) fl MCH 29.1 (25.6-32.2) pg MCHC 30.8 L (32.2-35.5) g/dl RDW Std Deviation 49.3 H (36.4-46.3) fL Plt Count 213 D (182-369) K/mm3 MPV 8.7 L (9.4-12.3) fl Sodium 136 (136-145) mEq/L Potassium 4.4 (3.5-5.1) mEq/L Chloride 100 (98-107) mEq/L Carbon Dioxide 31 (21-32) mEq/L Anion Gap 9.4 (5-15) BUN 15 (7-18) mg/dL Creatinine 1.0 (0.55-1.02) mg/dL Est Cr Clr Drug Dosing 40.82 mL/min Estimated GFR (MDRD) 56 (>60) mL/min BUN/Creatinine Ratio 15.0 (14-18) Glucose 151 H (80-115) mg/dL Calcium 8.8 (8.5-10.1) mg/dL Total Bilirubin 0.6 (0.2-1.0) mg/dL AST 31 (15-37) U/L ALT 24 (14-59) U/L Alkaline Phosphatase 66 (46-116) U/L Total Protein 6.2 L (6.4-8.2) g/dl Albumin 2.7 L (3.4-5.0) g/dl Globulin 3.5 gm/dL Albumin/Globulin Ratio 0.8 L (1-2) Med Orders - Current: Current Medications Acyclovir (Zovirax) 400 mg PO BID [facility] Last Admin: 01/19/20 20:38 Dose: 400 mg Aripiprazole (Abilify) 5 mg PO DAILY [facility] Aspirin (Halfprin) 81 mg PO DAILY [facility] Bisacodyl (Dulcolax) 5 mg PO DAILY PRN PRN Reason: Constipation Bupropion HCl (Wellbutrin Xl) 450 mg PO DAILY [facility] Buspirone HCl (Buspar) 15 mg PO BID [facility] Last Admin: 01/19/20 20:37 Dose: 15 mg Cholecalciferol (Vitamin D3) 5,000 unit PO DAILY [facility] Clonazepam (Klonopin) 0.5 mg PO BID PRN PRN Reason: Anxiety Cyclobenzaprine HCl (Flexeril) 5 mg PO TID PRN PRN Reason: Spasms Last Admin: 01/19/20 20:40 Dose: 5 mg Docusate Sodium (Colace) 100 mg PO BID [facility] Last Admin: 01/19/20 20:38 Dose: 100 mg Duloxetine HCl (Cymbalta) 120 mg PO DAILY [facility] Ferrous Sulfate (Ferrous Sulfate) 325 mg PO DAILY [facility] Fluticasone Propionate (Flonase) gm NASBOTH BID [facility] Cefazolin Sodium/Dextrose 2 gm (/ Premix) 50 mls @ 100 mls/hr IV Q8H [facility] Stop: 01/20/20 10:29 Last Admin: 01/20/20 02:26 Dose: 100 mls/hr Levothyroxine Sodium (Levothyroxine) 125 mcg PO ACBREAKFAST [facility] Last Admin: 01/20/20 06:15 Dose: 125 mcg Magnesium Hydroxide (Milk Of Magnesia) 30 ml PO BID PRN PRN Reason: Constipation Morphine Sulfate (Morphine) 2 mg IVPUSH Q2H PRN PRN Reason: Breakthrough Pain Last Admin: 01/20/20 02:19 Dose: 2 mg Naloxone HCl (Narcan) 0.1 mg IVPUSH Q5M PRN PRN Reason: Oversedation Ondansetron HCl (Zofran) 4 mg IVPUSH Q6H PRN PRN Reason: Nausea/Vomiting Oxycodone/Acetaminophen (Percocet 325-5 Mg) 1 - 2 tab PO Q4H PRN PRN Reason: Pain Last Admin: 01/20/20 06:14 Dose: 1 tab Pantoprazole Sodium (Protonix) 40 mg PO DAILY [facility] Last Admin: 01/19/20 16:37 Dose: Not Given Senna (Senna) 8.6 mg PO BID PRN PRN Reason: Constipation Discontinued Medications Acetaminophen (Tylenol) 975 mg PO ONETIME [facility] Stop: 01/19/20 14:00 Last Admin: 01/19/20 09:44 Dose: 975 mg Bupivacaine HCl (Sensorcaine-Mpf 0.25%) Confirm Administered Dose 30 ml .ROUTE .STK-MED ONE Stop: 01/19/20 09:58 Cefazolin Sodium (Ancef) Confirm Administered Dose 2 gm .ROUTE .STK-MED ONE Stop: 01/19/20 08:01 Last Admin: 01/19/20 12:35 Dose: 2 gm Cefazolin Sodium (Ancef) Confirm Administered Dose 2 gm .ROUTE .STK-MED ONE Stop: 01/19/20 09:58 Cyclobenzaprine HCl (Flexeril) 10 mg PO TID PRN PRN Reason: Spasms Famotidine (Pepcid) 20 mg PO Q12H [facility] Last Admin: 01/19/20 16:10 Dose: Not Given Fentanyl (Sublimaze) Confirm Administered Dose 250 mcg .ROUTE .STK-MED ONE Stop: 01/19/20 08:02 Fentanyl (Sublimaze) 50 mcg IVPUSH Q5M PRN PRN Reason: Pain Stop: 01/19/20 18:00 Hydromorphone HCl (Dilaudid) 0.5 mg IVPUSH Q10M PRN PRN Reason: Pain (severe 7-10) Stop: 01/19/20 18:00 Lactated Ringer's (Ringers, Lactated) 1,000 mls @ 125 mls/hr IV ASDIRECTED [facility] Stop: 01/19/20 23:00 Last Admin: 01/19/20 09:55 Dose: 125 mls/hr Lidocaine HCl (Xylocaine-Mpf 1%) Confirm Administered Dose 4 mls @ as directed .ROUTE .STK-MED ONE Stop: 01/19/20 08:01 Lactated Ringer's (Ringers, Lactated) Confirm Administered Dose 1,000 mls @ as directed .ROUTE .STK-MED ONE Stop: 01/19/20 08:01 Lidocaine HCl (Xylocaine-Mpf 1%) Confirm Administered Dose 2 mls @ as directed .ROUTE .STK-MED ONE Stop: 01/19/20 08:02 Iodine (Iodine 2% Mild Tincture) Confirm Administered Dose 30 ml .ROUTE .STK- MED ONE Stop: 01/19/20 09:58 Last Admin: 01/19/20 12:35 Dose: 18 ml Ketorolac Tromethamine (Toradol) 15 mg IVPUSH Q6H PRN PRN Reason: Pain Lidocaine/Sodium Bicarbonate (Buffered Lidocaine 1% In Ns 8.4%) 0.25 ml IDERM ONETIME PRN PRN Reason: Prior to IV Start Stop: 01/19/20 18:00 Last Admin: 01/19/20 09:53 Dose: 0.25 ml Midazolam HCl (Versed 1 Mg/Ml) Confirm Administered Dose 2 mg .ROUTE .STK-MED ONE Stop: 01/19/20 08:02 Midazolam HCl (Versed 1 Mg/Ml) Confirm Administered Dose 2 mg .ROUTE .STK-MED ONE Stop: 01/19/20 10:04 Miscellaneous Medication (Phenylephrine 1 Mg/10 Ml-Ns) Confirm Administered Dose 1 mg IV .STK-MED ONE Stop: 01/19/20 12:02 Non-Formulary Medication (Bupropion Hcl [Wellbutrin Xl]) 300 mg PO DAILY [facility] Ondansetron HCl (Zofran) 4 mg IVPUSH ONETIME PRN PRN Reason: Nausea/Vomiting Stop: 01/19/20 18:00 Oxycodone HCl (Oxycontin) 10 mg PO ONETIME [facility] Stop: 01/19/20 14:00 Last Admin: 01/19/20 09:43 Dose: 10 mg Pregabalin (Lyrica) 50 mg PO ONETIME [facility] Stop: 01/19/20 14:00 Last Admin: 01/19/20 09:44 Dose: 50 mg Propofol (Diprivan 20 Ml) Confirm Administered Dose 400 mg .ROUTE .STK-MED ONE Stop: 01/19/20 08:02 Ropivacaine (Naropin 0.5%) Confirm Administered Dose 30 ml .ROUTE .STK-MED ONE Stop: 01/19/20 07:29 Sodium Chloride (Saline Flush) 10 ml FLUSH ASDIRECTED PRN PRN Reason: Keep Vein Open Stop: 01/19/20 18:00 Tranexamic Acid (Cyklokapron) Confirm Administered Dose 1,000 mg .ROUTE .STK- MED ONE Stop: 01/19/20 09:58 Last Admin: 01/19/20 12:40 Dose: 1,000 mg Vancomycin HCl (Vancomycin) Confirm Administered Dose 1 gm .ROUTE .STK-MED ONE Stop: 01/19/20 09:58 Last Admin: 01/19/20 12:40 Dose: 1 gm - Exam Wound/Incisions: Dressing Dry and Intact General: Alert, Cooperative, No Acute Distress Lungs: Normal Respiratory Effort Extremities: Other (NVS intact for BUE. ) Sepsis Event Note - Evaluation Sepsis Screening Result: No Definite Risk - Focused Exam Vital Signs: Vital Signs Temp Pulse Resp BP Pulse Ox Pulse Ox 01/20/20 04:02 98.2 F 97 18 129/66 96 01/20/20 03:37 98 01/20/20 00:33 99.3 F 103 H 18 130/58 L 90 L 01/19/20 21:28 98 01/19/20 20:32 98.1 F 99 16 128/45 L 96 Date Exam was Performed: 01/20/20 Time Exam was Performed: 08:02 - Problem List Review Problem List Initiated/Reviewed/Updated: Yes - My Orders Last 24 Hours: Active Orders 24 hr Category Date Time Status Incentive Spirometry [RT Incentive Spirometry] [RC] Care 01/19/20 14:45 Active Q1HWA Notify Provider Consults [RC] ASDIRECTED Care 01/19/20 07:04 Active Ready for Discharge [RC] PER UNIT ROUTINE Care 01/20/20 08:01 Ordered [employer] Diet [DIET] Diet 01/19/20 Lunch Active ARIPiprazole [Abilify] Med 01/20/20 09:00 Active 5 mg PO DAILY Acyclovir [Zovirax] Med 01/19/20 21:00 Active 400 mg PO BID Aspirin [Halfprin] Med 01/20/20 09:00 Active 81 mg PO DAILY Cholecalciferol (Vitamin D3) [Vitamin D3] Med 01/20/20 09:00 Active 5,000 unit PO DAILY ClonazePAM [KlonoPIN] Med 01/19/20 15:37 Active 0.5 mg PO BID PRN Cyclobenzaprine [Flexeril] Med 01/19/20 16:42 Active 5 mg PO TID PRN DULoxetine [Cymbalta] Med 01/20/20 09:00 Active 120 mg PO DAILY Docusate Sodium [Colace] Med 01/19/20 21:00 Active 100 mg PO BID Ferrous Sulfate Med 01/20/20 09:00 Active 325 mg PO DAILY Fluticasone Propionate [Flonase] Med 01/19/20 21:00 Pending DOSE gm NASBOTH BID Levothyroxine Med 01/20/20 06:00 Active 125 mcg PO ACBREAKFAST Pantoprazole [ProTONIX] Med 01/19/20 09:00 Active 40 mg PO DAILY buPROPion [Wellbutrin XL] Med 01/20/20 09:00 Active 450 mg PO DAILY busPIRone [Buspar] Med 01/19/20 21:00 Active 15 mg PO BID ceFAZolin [Ancef] 2 gm Med 01/19/20 18:00 Active Premix Bag 1 bag IV Q8H Antiembolic Hose [OM.PC] Per Unit Routine Oth 01/19/20 07:03 Ordered Medication Orders Acyclovir (Zovirax) 400 mg PO BID [facility] Last Admin: 01/19/20 20:38 Dose: 400 mg Aripiprazole (Abilify) 5 mg PO DAILY [facility] Aspirin (Halfprin) 81 mg PO DAILY [facility] Bisacodyl (Dulcolax) 5 mg PO DAILY PRN PRN Reason: Constipation Bupropion HCl (Wellbutrin Xl) 450 mg PO DAILY [facility] Buspirone HCl (Buspar) 15 mg PO BID [facility] Last Admin: 01/19/20 20:37 Dose: 15 mg Cholecalciferol (Vitamin D3) 5,000 unit PO DAILY [facility] Clonazepam (Klonopin) 0.5 mg PO BID PRN PRN Reason: Anxiety Cyclobenzaprine HCl (Flexeril) 5 mg PO TID PRN PRN Reason: Spasms Last Admin: 01/19/20 20:40 Dose: 5 mg Docusate Sodium (Colace) 100 mg PO BID [facility] Last Admin: 01/19/20 20:38 Dose: 100 mg Duloxetine HCl (Cymbalta) 120 mg PO DAILY [facility] Ferrous Sulfate (Ferrous Sulfate) 325 mg PO DAILY [facility] Fluticasone Propionate (Flonase) gm NASBOTH BID [facility] Cefazolin Sodium/Dextrose 2 gm (/ Premix) 50 mls @ 100 mls/hr IV Q8H [facility] Stop: 01/20/20 10:29 Last Admin: 01/20/20 02:26 Dose: 100 mls/hr Infusion: 01/19/20 17:47 Dose: 100 mls/hr Admin: 01/19/20 17:17 Dose: 100 mls/hr Levothyroxine Sodium (Levothyroxine) 125 mcg PO ACBREAKFAST [facility] Last Admin: 01/20/20 06:15 Dose: 125 mcg Magnesium Hydroxide (Milk Of Magnesia) 30 ml PO BID PRN PRN Reason: Constipation Morphine Sulfate (Morphine) 2 mg IVPUSH Q2H PRN PRN Reason: Breakthrough Pain Last Admin: 01/20/20 02:19 Dose: 2 mg Naloxone HCl (Narcan) 0.1 mg IVPUSH Q5M PRN PRN Reason: Oversedation Ondansetron HCl (Zofran) 4 mg IVPUSH Q6H PRN PRN Reason: Nausea/Vomiting Oxycodone/Acetaminophen (Percocet 325-5 Mg) 1 - 2 tab PO Q4H PRN PRN Reason: Pain Last Admin: 01/20/20 06:14 Dose: 1 tab Admin: 01/19/20 23:02 Dose: 1 tab Admin: 01/19/20 17:09 Dose: 2 tab Pantoprazole Sodium (Protonix) 40 mg PO DAILY [facility] Last Admin: 01/19/20 16:37 Dose: Not Given Senna (Senna) 8.6 mg PO BID PRN PRN Reason: Constipation - Assessment Assessment (Free Text/Narrative):: POD#1 - left reverse TSA - Plan Plan (Free Text/Narrative):: 1. Hgb 11.2. 2. Discharge to home today if cleared by Hospitalist service and therapies. 3. Outpatient PT or OT. 4. 81mg ASA PO daily with PPI therapy. The pt's case was discussed with Dr. Henry.
--- NOTE | 2020-01-20 08:05 | PCM.CONSN ---
- General Info Date of Service: 01/20/20 Admission Dx/Problem (Free Text): Admission Diagnosis/Problem Admission Diagnosis/Problem Osteoarthritis of shoulder Functional Status: Reports: Pain Controlled (at times ), Tolerating Diet, Ambulating, Urinating, Incentive Spirometry. Denies: New Symptoms - Review of Systems General: Reports: No Symptoms. Denies: Fever, Chills HEENT: Reports: No Symptoms. Denies: Headaches, Sore Throat Pulmonary: Reports: No Symptoms. Denies: Shortness of Breath, Pleuritic Chest Pain, Cough, Sputum, Wheezing Cardiovascular: Reports: No Symptoms. Denies: Chest Pain, Palpitations, Dyspnea on Exertion Gastrointestinal: Reports: No Symptoms. Denies: Abdominal Pain, Constipation, Diarrhea, Nausea, Vomiting Genitourinary: Reports: No Symptoms. Denies: Pain Musculoskeletal: Reports: Shoulder Pain Skin: Reports: No Symptoms. Denies: Cyanosis Neurological: Reports: No Symptoms. Denies: Confusion, Difficulty Walking, Gait Disturbance Psychiatric: Reports: No Symptoms - Patient Data Vitals - Most Recent: Last Vital Signs Temp 98.2 F 01/20/20 04:02 Pulse 97 01/20/20 04:02 Resp 18 01/20/20 04:02 BP 129/66 01/20/20 04:02 Pulse Ox 96 01/20/20 04:02 Weight - Most Recent: 243 lb I&O - Last 24 Hours: Intake & Output 01/19/20 01/20/20 01/20/20 22:59 06:59 14:59 Intake Total 590 1200 Output Total 400 500 Balance 190 700 Lab Results Last 24 Hours: Laboratory Results - last 24 hr 01/20/20 01/20/20 Range/Units :20 06:20 WBC 7.98 (3.98-10.04) K/mm3 RBC 3.85 L (3.98-5.22) M/mm3 Hgb 11.2 D (11.2-15.7) gm/dl Hct 36.4 (34.1-44.9) % MCV 94.5 (79.4-94.8) fl MCH 29.1 (25.6-32.2) pg MCHC 30.8 L (32.2-35.5) g/dl RDW Std Deviation 49.3 H (36.4-46.3) fL Plt Count 213 D (182-369) K/mm3 MPV 8.7 L (9.4-12.3) fl Sodium 136 (136-145) mEq/L Potassium 4.4 (3.5-5.1) mEq/L Chloride 100 (98-107) mEq/L Carbon Dioxide 31 (21-32) mEq/L Anion Gap 9.4 (5-15) BUN 15 (7-18) mg/dL Creatinine 1.0 (0.55-1.02) mg/dL Est Cr Clr Drug Dosing 40.82 mL/min Estimated GFR (MDRD) 56 (>60) mL/min BUN/Creatinine Ratio 15.0 (14-18) Glucose 151 H (80-115) mg/dL Calcium 8.8 (8.5-10.1) mg/dL Total Bilirubin 0.6 (0.2-1.0) mg/dL AST 31 (15-37) U/L ALT 24 (14-59) U/L Alkaline Phosphatase 66 (46-116) U/L Total Protein 6.2 L (6.4-8.2) g/dl Albumin 2.7 L (3.4-5.0) g/dl Globulin 3.5 gm/dL Albumin/Globulin Ratio 0.8 L (1-2) Med Orders - Current: Current Medications Acyclovir (Zovirax) 400 mg PO BID [facility] Last Admin: 01/19/20 20:38 Dose: 400 mg Aripiprazole (Abilify) 5 mg PO DAILY [facility] Aspirin (Halfprin) 81 mg PO DAILY [facility] Bisacodyl (Dulcolax) 5 mg PO DAILY PRN PRN Reason: Constipation Bupropion HCl (Wellbutrin Xl) 450 mg PO DAILY [facility] Buspirone HCl (Buspar) 15 mg PO BID [facility] Last Admin: 01/19/20 20:37 Dose: 15 mg Cholecalciferol (Vitamin D3) 5,000 unit PO DAILY [facility] Clonazepam (Klonopin) 0.5 mg PO BID PRN PRN Reason: Anxiety Cyclobenzaprine HCl (Flexeril) 5 mg PO TID PRN PRN Reason: Spasms Last Admin: 01/19/20 20:40 Dose: 5 mg Docusate Sodium (Colace) 100 mg PO BID [facility] Last Admin: 01/19/20 20:38 Dose: 100 mg Duloxetine HCl (Cymbalta) 120 mg PO DAILY [facility] Ferrous Sulfate (Ferrous Sulfate) 325 mg PO DAILY [facility] Fluticasone Propionate (Flonase) gm NASBOTH BID [facility] Cefazolin Sodium/Dextrose 2 gm (/ Premix) 50 mls @ 100 mls/hr IV Q8H [facility] Stop: 01/20/20 10:29 Last Admin: 01/20/20 02:26 Dose: 100 mls/hr Levothyroxine Sodium (Levothyroxine) 125 mcg PO ACBREAKFAST [facility] Last Admin: 01/20/20 06:15 Dose: 125 mcg Magnesium Hydroxide (Milk Of Magnesia) 30 ml PO BID PRN PRN Reason: Constipation Morphine Sulfate (Morphine) 2 mg IVPUSH Q2H PRN PRN Reason: Breakthrough Pain Last Admin: 01/20/20 02:19 Dose: 2 mg Naloxone HCl (Narcan) 0.1 mg IVPUSH Q5M PRN PRN Reason: Oversedation Ondansetron HCl (Zofran) 4 mg IVPUSH Q6H PRN PRN Reason: Nausea/Vomiting Oxycodone/Acetaminophen (Percocet 325-5 Mg) 1 - 2 tab PO Q4H PRN PRN Reason: Pain Last Admin: 01/20/20 06:14 Dose: 1 tab Pantoprazole Sodium (Protonix) 40 mg PO DAILY [facility] Last Admin: 01/19/20 16:37 Dose: Not Given Senna (Senna) 8.6 mg PO BID PRN PRN Reason: Constipation Discontinued Medications Acetaminophen (Tylenol) 975 mg PO ONETIME [facility] Stop: 01/19/20 14:00 Last Admin: 01/19/20 09:44 Dose: 975 mg Bupivacaine HCl (Sensorcaine-Mpf 0.25%) Confirm Administered Dose 30 ml .ROUTE .STK-MED ONE Stop: 01/19/20 09:58 Cefazolin Sodium (Ancef) Confirm Administered Dose 2 gm .ROUTE .STK-MED ONE Stop: 01/19/20 08:01 Last Admin: 01/19/20 12:35 Dose: 2 gm Cefazolin Sodium (Ancef) Confirm Administered Dose 2 gm .ROUTE .STK-MED ONE Stop: 01/19/20 09:58 Cyclobenzaprine HCl (Flexeril) 10 mg PO TID PRN PRN Reason: Spasms Famotidine (Pepcid) 20 mg PO Q12H [facility] Last Admin: 01/19/20 16:10 Dose: Not Given Fentanyl (Sublimaze) Confirm Administered Dose 250 mcg .ROUTE .STK-MED ONE Stop: 01/19/20 08:02 Fentanyl (Sublimaze) 50 mcg IVPUSH Q5M PRN PRN Reason: Pain Stop: 01/19/20 18:00 Hydromorphone HCl (Dilaudid) 0.5 mg IVPUSH Q10M PRN PRN Reason: Pain (severe 7-10) Stop: 01/19/20 18:00 Lactated Ringer's (Ringers, Lactated) 1,000 mls @ 125 mls/hr IV ASDIRECTED [facility] Stop: 01/19/20 23:00 Last Admin: 01/19/20 09:55 Dose: 125 mls/hr Lidocaine HCl (Xylocaine-Mpf 1%) Confirm Administered Dose 4 mls @ as directed .ROUTE .STK-MED ONE Stop: 01/19/20 08:01 Lactated Ringer's (Ringers, Lactated) Confirm Administered Dose 1,000 mls @ as directed .ROUTE .STK-MED ONE Stop: 01/19/20 08:01 Lidocaine HCl (Xylocaine-Mpf 1%) Confirm Administered Dose 2 mls @ as directed .ROUTE .STK-MED ONE Stop: 01/19/20 08:02 Iodine (Iodine 2% Mild Tincture) Confirm Administered Dose 30 ml .ROUTE .STK- MED ONE Stop: 01/19/20 09:58 Last Admin: 01/19/20 12:35 Dose: 18 ml Ketorolac Tromethamine (Toradol) 15 mg IVPUSH Q6H PRN PRN Reason: Pain Lidocaine/Sodium Bicarbonate (Buffered Lidocaine 1% In Ns 8.4%) 0.25 ml IDERM ONETIME PRN PRN Reason: Prior to IV Start Stop: 01/19/20 18:00 Last Admin: 01/19/20 09:53 Dose: 0.25 ml Midazolam HCl (Versed 1 Mg/Ml) Confirm Administered Dose 2 mg .ROUTE .STK-MED ONE Stop: 01/19/20 08:02 Midazolam HCl (Versed 1 Mg/Ml) Confirm Administered Dose 2 mg .ROUTE .STK-MED ONE Stop: 01/19/20 10:04 Miscellaneous Medication (Phenylephrine 1 Mg/10 Ml-Ns) Confirm Administered Dose 1 mg IV .STK-MED ONE Stop: 01/19/20 12:02 Non-Formulary Medication (Bupropion Hcl [Wellbutrin Xl]) 300 mg PO DAILY [facility] Ondansetron HCl (Zofran) 4 mg IVPUSH ONETIME PRN PRN Reason: Nausea/Vomiting Stop: 01/19/20 18:00 Oxycodone HCl (Oxycontin) 10 mg PO ONETIME [facility] Stop: 01/19/20 14:00 Last Admin: 01/19/20 09:43 Dose: 10 mg Pregabalin (Lyrica) 50 mg PO ONETIME [facility] Stop: 01/19/20 14:00 Last Admin: 01/19/20 09:44 Dose: 50 mg Propofol (Diprivan 20 Ml) Confirm Administered Dose 400 mg .ROUTE .STK-MED ONE Stop: 01/19/20 08:02 Ropivacaine (Naropin 0.5%) Confirm Administered Dose 30 ml .ROUTE .STK-MED ONE Stop: 01/19/20 07:29 Sodium Chloride (Saline Flush) 10 ml FLUSH ASDIRECTED PRN PRN Reason: Keep Vein Open Stop: 01/19/20 18:00 Tranexamic Acid (Cyklokapron) Confirm Administered Dose 1,000 mg .ROUTE .STK- MED ONE Stop: 01/19/20 09:58 Last Admin: 01/19/20 12:40 Dose: 1,000 mg Vancomycin HCl (Vancomycin) Confirm Administered Dose 1 gm .ROUTE .STK-MED ONE Stop: 01/19/20 09:58 Last Admin: 01/19/20 12:40 Dose: 1 gm - Exam Quality Assessment: DVT Prophylaxis General: Alert, Oriented, Cooperative, No Acute Distress HEENT: Pupils Equal, Pupils Reactive, Mucous Membr. Moist/[place] Neck: Supple, Trachea Midline Lungs: Clear to Auscultation, Normal Respiratory Effort Cardiovascular: Regular Rate, Regular Rhythm GI/Abdominal Exam: Normal Bowel Sounds, Soft, Non-Tender, No Distention (Female) Exam: Deferred Back Exam: Normal Inspection, Full Range of Motion Extremities: Normal Capillary Refill, Arm Pain, Limited Range of Motion, Other ( Bandage, Sling and swathe in place on left should. Cooling pack in place. ) Peripheral Pulses: 3+: Radial (L), Radial (R), Dorsalis Pedis (L), Dorsalis Pedis (R) Skin: Warm, Dry, Intact Wound/Incisions: Dressing Dry and Intact Neurological: No New Focal Deficit Psy/Mental Status: Alert, Normal Affect, Normal Mood Consult PN Assessment/Plan POD#: 1 Procedures: Procedures ANTINUCLEAR ANTIBODIES (03/13/17) ASSAY OF CREATININE (09/03/19) ASSAY OF FREE THYROXINE (10/31/16) ASSAY OF IRON (01/13/20) ASSAY OF MAGNESIUM (09/26/19) ASSAY OF NATRIURETIC PEPTIDE (04/29/19) ASSAY OF PREALBUMIN (12/27/17) ASSAY OF TRANSFERRIN (10/27/19) ASSAY OF TROPONIN QUANT (04/29/19) ASSAY THYROID STIM HORMONE (01/13/20) ASSAY TRIIODOTHYRONINE (T3) (07/27/16) BREAST TOMOSYNTHESIS BI (01/02/20) C-REACTIVE PROTEIN (04/29/19) COMPLETE CBC AUTOMATED (10/13/19) COMPLETE CBC W/AUTO DIFF WBC (01/13/20) COMPREHEN METABOLIC PANEL (01/13/20) CREATINE MB FRACTION (04/29/19) CT ANGIOGRAPHY CHEST (04/29/19) DXA BONE DENSITY AXIAL (08/20/17) ELECTROCARDIOGRAM TRACING (10/27/19) EMERGENCY DEPT VISIT (09/26/19) EMERGENCY DEPT VISIT (04/29/19) EXTRACRANIAL BILAT STUDY (04/24/17) FIBRIN DEGRADATION QUANT (04/29/19) FLUOROSCOPY <1 HR PHYS/QHP (01/09/18) GLUCOSE BLOOD TEST (04/29/19) GLYCOSYLATED HEMOGLOBIN TEST (01/13/20) HEMATOCRIT (09/26/19) HEMOGLOBIN (09/26/19) HPYLORI STOOL IA (09/26/19) HYDRATE IV INFUSION ADD-ON (09/26/19) LIPID PANEL (04/24/17) MANUAL THERAPY 1/> REGIONS (01/09/18) METABOLIC PANEL TOTAL CA (10/13/19) MR-STAPH DNA AMP PROBE (01/09/18) MRI NECK SPINE W/O DYE (04/09/19) OFFICE/OUTPATIENT VISIT EST (10/27/19) OFFICE/OUTPATIENT VISIT EST (03/28/19) OFFICE/OUTPATIENT VISIT EST (04/22/18) OFFICE/OUTPATIENT VISIT EST (12/27/17) OFFICE/OUTPATIENT VISIT EST (08/20/17) OFFICE/OUTPATIENT VISIT EST (03/23/17) OFFICE/OUTPATIENT VISIT EST (08/03/16) OT EVAL LOW COMPLEX 30 MIN (01/09/18) POLYSOM 6/> YRS 4/> DAVID (02/20/19) POLYSOM 6/>YRS CPAP 4/> PARM (03/20/19) PROTHROMBIN TIME (01/13/20) PT EVAL LOW COMPLEX 20 MIN (01/09/18) RBC SED RATE AUTOMATED (04/22/18) RHEUMATOID FACTOR TEST QUAL (03/13/17) ROUTINE VENIPUNCTURE (01/13/20) SCR MAMMO BI INCL CAD (01/02/20) SELF CARE MNGMENT TRAINING (01/09/18) THER/PROPH/DIAG INJ IV PUSH (09/26/19) THERAPEUTIC EXERCISES (01/09/18) THROMBOPLASTIN TIME PARTIAL (01/13/20) TTE W/DOPPLER COMPLETE (04/03/19) TX/PRO/DX INJ NEW DRUG ADDON (09/26/19) UR ALBUMIN SEMIQUANTITATIVE (06/14/17) URINALYSIS AUTO W/SCOPE (01/13/20) URINE CULTURE/COLONY COUNT (01/13/20) US EXAM ABDO BACK WALL PEREZ (04/24/17) VIT D 1 25-DIHYDROXY (08/20/17) VITAMIN B-12 (02/20/19) VITAMIN D 25 HYDROXY (01/13/20) X-RAY EXAM ABDOMEN 1 VIEW (04/29/19) X-RAY EXAM CHEST 1 VIEW (04/29/19) X-RAY EXAM CHEST 2 VIEWS (10/27/19) X-RAY EXAM NECK SPINE 2-3 VW (10/31/16) X-RAY EXAM OF SHOULDER (01/09/18) (1) Anxiety SNOMED Code(s): 10619589 Code(s): F41.9 - ANXIETY DISORDER, UNSPECIFIED Priority: Low Current Visit: No (2) OCTAVIO on CPAP SNOMED Code(s): 03055053 Code(s): G47.33 - OBSTRUCTIVE SLEEP APNEA (ADULT) (PEDIATRIC); Z99.89 - DEPENDENCE ON OTHER ENABLING MACHINES AND DEVICES Priority: Medium Current Visit: Yes (3) Elevated glucose SNOMED Code(s): 09285909 Code(s): R73.09 - OTHER ABNORMAL GLUCOSE Priority: Medium Current Visit: No (4) Depression SNOMED Code(s): 98730005 Code(s): F32.9 - MAJOR DEPRESSIVE DISORDER, SINGLE EPISODE, UNSPECIFIED Priority: Low Current Visit: No Qualifiers: Depression Type: other depression Qualified Code(s): F32.89 - Other specified depressive episodes (5) Fatigue SNOMED Code(s): 89205065 Code(s): R53.83 - OTHER FATIGUE Priority: Low Current Visit: No Qualifiers: Fatigue type: unspecified Qualified Code(s): R53.83 - Other fatigue (6) Anemia SNOMED Code(s): 597113926 Code(s): D64.9 - ANEMIA, UNSPECIFIED Priority: Low Current Visit: No Qualifiers: Anemia type: unspecified type Qualified Code(s): D64.9 - Anemia, unspecified (7) Memory changes SNOMED Code(s): 647679161 Code(s): R41.3 - OTHER AMNESIA Priority: Low Current Visit: No (8) Migraines SNOMED Code(s): 85734735 Code(s): G43.909 - MIGRAINE, UNSP, NOT INTRACTABLE, WITHOUT STATUS MIGRAINOSUS Priority: Low Current Visit: No Qualifiers: Migraine type: unspecified Status migrainosus presence: without status migrainosus Intractability: not intractable Qualified Code(s): G43.909 - Migraine, unspecified, not intractable, without status migrainosus (9) Peripheral edema SNOMED Code(s): 956336316 Code(s): R60.9 - EDEMA, UNSPECIFIED Priority: Low Current Visit: No (10) Type II diabetes mellitus SNOMED Code(s): 35470518 Code(s): E11.9 - TYPE 2 DIABETES MELLITUS WITHOUT COMPLICATIONS Priority: Medium Current Visit: No Qualifiers: Diabetes mellitus intermediate project manager insulin use: unspecified snf insulin use status Diabetes mellitus complication status: with other specified complication Qualified Code(s): E11.69 - Type 2 diabetes mellitus with other specified complication (11) Vitamin D deficiency SNOMED Code(s): 63665106 Code(s): E55.9 - VITAMIN D DEFICIENCY, UNSPECIFIED Priority: Low Current Visit: No (12) [place] (hard of hearing) SNOMED Code(s): 60538504 Code(s): H91.90 - UNSPECIFIED HEARING LOSS, UNSPECIFIED EAR Priority: Low Current Visit: No Qualifiers: Hearing loss type: unspecified Laterality: unspecified laterality Qualified Code(s): H91.90 - Unspecified hearing loss, unspecified ear (13) Hypothyroid SNOMED Code(s): 67741072 Code(s): E03.9 - HYPOTHYROIDISM, UNSPECIFIED Priority: Low Current Visit : No Qualifiers: Hypothyroidism type: unspecified Qualified Code(s): E03.9 - Hypothyroidism , unspecified (14) CKD (chronic kidney disease) SNOMED Code(s): 826961532 Code(s): N18.9 - CHRONIC KIDNEY DISEASE, UNSPECIFIED Priority: Medium Current Visit: No Qualifiers: Chronic kidney disease stage: unspecified stage Qualified Code(s): N18.9 - Chronic kidney disease, unspecified (15) HTN (hypertension) SNOMED Code(s): 66138152 Code(s): I10 - ESSENTIAL (PRIMARY) HYPERTENSION Priority: Medium Current Visit: No Qualifiers: Hypertension type: unspecified Qualified Code(s): I10 - Essential (primary ) hypertension (16) Hepatitis C SNOMED Code(s): 01497755 Code(s): B19.20 - UNSPECIFIED VIRAL HEPATITIS C WITHOUT HEPATIC COMA Priority: Low Current Visit: No Qualifiers: Viral hepatitis chronicity: chronic Hepatic coma status: without hepatic coma Qualified Code(s): B18.2 - Chronic viral hepatitis C (17) History of GI bleed SNOMED Code(s): 054618976 Code(s): Z87.19 - PERSONAL HISTORY OF OTHER DISEASES OF THE DIGESTIVE SYSTEM Priority: Medium Current Visit: No (18) History of MRSA infection SNOMED Code(s): 164010079, 646741463 Code(s): Z86.14 - PERSONAL HISTORY OF METHICILLIN RESIS STAPH INFECTION Priority: Low Current Visit: No (19) Osteoarthritis SNOMED Code(s): 143453412 Code(s): M19.90 - UNSPECIFIED OSTEOARTHRITIS, UNSPECIFIED SITE Priority: High Current Visit: Yes Qualifiers: Osteoarthritis location: shoulder Osteoarthritis type: unspecified Laterality: left Qualified Code(s): M19.012 - Primary osteoarthritis, left shoulder (20) Status post total shoulder arthroplasty SNOMED Code(s): 158761649, 579441258 Code(s): Z96.619 - PRESENCE OF UNSPECIFIED ARTIFICIAL SHOULDER JOINT Priority: High Current Visit: Yes Qualifiers: Laterality: left Qualified Code(s): Z96.612 - Presence of left artificial shoulder joint (21) Herpes Priority: Low Current Visit: No (22) Chronic neck pain SNOMED Code(s): 6395525454920 Code(s): M54.2 - CERVICALGIA; G89.29 - OTHER CHRONIC PAIN Priority: Medium Current Visit: No (23) Coronary artery stenosis SNOMED Code(s): 947992427, 526454011 Code(s): I25.10 - ATHSCL HEART DISEASE OF [place] CORONARY ARTERY W/O ANG PCTRS Priority: Medium Current Visit: No (24) Chronic constipation SNOMED Code(s): 065748130 Code(s): K59.09 - OTHER CONSTIPATION Priority: Low Current Visit: No (25) Neck muscle spasm SNOMED Code(s): 450417918404 Code(s): M62.838 - OTHER MUSCLE SPASM Priority: Low Current Visit: No Problem List Initiated/Reviewed/Updated: Yes My Orders Last 24 Hours: My Active Orders 01/19/20 15:37 ClonazePAM [KlonoPIN] 0.5 mg PO BID PRN 01/19/20 21:00 Acyclovir [Zovirax] 400 mg PO BID Fluticasone Propionate [Flonase] DOSE gm NASBOTH BID busPIRone [Buspar] 15 mg PO BID 01/20/20 06:00 Levothyroxine 125 mcg PO ACBREAKFAST 01/20/20 09:00 ARIPiprazole [Abilify] 5 mg PO DAILY Cholecalciferol (Vitamin D3) [Vitamin D3] 5,000 unit PO DAILY DULoxetine [Cymbalta] 120 mg PO DAILY Ferrous Sulfate 325 mg PO DAILY buPROPion [Wellbutrin XL] 450 mg PO DAILY Plan: I/P: Acute: S/P left reverse total shoulder arthroplasty - post-operative day 1 -DVT prophylaxis and pain management per primary care team -PT/OT -IS/RT -Monitor oxygen saturation -Titrate oxygen as needed -Home medications reviewed -Vital signs stable -Monitor labs -Pre-operative Hgb was 13.4; Now 11.2 -Pre-operative GFR was 60; Now 56 -Pre-operative A1C was 6.4% Osteoarthritis of left shoulder -Pain management per primary care team Chronic: Anxiety OCTAVIO with CPAP use Elevated glucose Depression Fatigue Anemia Memory changes Migraines Obesity Peripheral edema Type II DM Vitamin D Deficiency History of GI Bleed Hard of hearing HTN Hypothyroidism CKD Hepatitis C infection with negative viral load History of MRSA Chronic neck pain Chronic constipation Neck muscle spasms Herpes Coronary artery stenosis Plan: CM for discharge planning GI prophylaxis Home medications as indicated Other orders as listed above Routine AM labs She is a full code. Her PCP is Martha Peace PA-C From a hospitalist standpoint Delilah is doing ok. She has been up ambulating and working with therapies. She is off of oxygen and has urinated. Her labs and vital signs remain stable. She has been having some pain control issues and the primary team is working on this. Otherwise she is cleared for discharge pending primary team and PT/OT agreement. Thank you for allowing us to participate in the care of this patient!! Sepsis Event Note - Evaluation Sepsis Screening Result: No Definite Risk - Focused Exam Vital Signs: Vital Signs Temp Pulse Resp BP Pulse Ox Pulse Ox 01/20/20 04:02 98.2 F 97 18 129/66 96 01/20/20 03:37 98 01/20/20 00:33 99.3 F 103 H 18 130/58 L 90 L 01/19/20 21:28 98 01/19/20 20:32 98.1 F 99 16 128/45 L 96 Date Exam was Performed: 01/20/20 Time Exam was Performed: 13:48
[2020-01-20] MEDS: Cyclobenzaprine 10 MG Tab PO PRN (08:48)
[2020-01-20] MEDS: Docusate Sodium 100 MG Cap PO SCH (08:49)
[2020-01-20] MEDS: Pantoprazole 40 MG Tab.CR PO SCH (08:52)
[2020-01-20] MEDS: Acyclovir 200 MG Cap PO SCH (08:53)
[2020-01-20] MEDS: busPIRone 15 MG Tab PO SCH (08:54)
[2020-01-20] MEDS ORDERED: Ferrous Sulfate 324 MG Tab.EC PO SCH ×2 (09:00)
[2020-01-20] MEDS ORDERED: buPROPion 150 MG Tab.ER PO SCH (09:00)
[2020-01-20] MEDS ORDERED: Cholecalciferol (Vitamin D3) 5,000 UNIT Tab PO SCH (09:00)
[2020-01-20] MEDS ORDERED: ARIPiprazole 5 MG Tab PO SCH (09:00)
[2020-01-20] MEDS ORDERED: Non-Formulary Medication 1 Each (Bupropion Hcl [Wellbutrin Xl] 300 MG) PO SCH (09:00)
[2020-01-20] MEDS ORDERED: DULoxetine 30 MG Cap PO SCH (09:00)
[2020-01-20] MEDS ORDERED: Aspirin 81 MG Tab.EC PO SCH (09:00)
--- NOTE | 2020-01-20 09:24 | PCM48HPAN ---
Post Anesthesia Note - EVALUATION WITHIN 48HRS OF ANESTHETIC Vital Signs in Normal Range: Yes Patient Participated in Evaluation: Yes Respiratory Function Stable: Yes Airway Patent: Yes Cardiovascular Function Stable: Yes Hydration Status Stable: Yes Pain Control Satisfactory: Yes Nausea and Vomiting Control Satisfactory: Yes Mental Status Recovered: Yes Vital Signs: Last Vital Signs Temp 36.8 C 01/20/20 04:02 Pulse 97 01/20/20 04:02 Resp 18 01/20/20 04:02 BP 129/66 01/20/20 04:02 Pulse Ox 96 01/20/20 04:02
[2020-01-20] MEDS ORDERED: Acetaminophen/HYDROcodone 325-5 MG Tab PO PRN (11:06)
--- NOTE | 2020-01-22 11:30 | PCM.OPNOTE ---
- General Post-Op/Procedure Note Date of Surgery/Procedure: 01/19/20 Operative Procedure(s): left reverse total shoulder arthroplasty Pre Op Diagnosis: left shoulder rotator cuff tear arthropathy Post-Op Diagnosis: Same Anesthesia Technique: General ET Tube, Regional Block Primary Surgeon: Augusto Henry Anesthesia Provider: Jennifer Ni [employer] Faculty: Yessica Arevalo [employer] Faculty: Anisha Sidhu EBL in mLs: 300 Complications: None Condition: Good Free Text/Narrative:: 36+4 glenosphere 24mm baseplate 5 humeral stem
--- NOTE | 2020-01-23 13:27 | OR ---
DATE OF OPERATION: 01/19/2020 SURGEON: Augusto Henry MD OPERATION PERFORMED: Left reverse total shoulder arthroplasty. PREOPERATIVE DIAGNOSIS: Left shoulder rotator cuff tear arthropathy. POSTOPERATIVE DIAGNOSIS: Left shoulder rotator cuff tear arthropathy. ANESTHESIA: General endotracheal intubation with regional interscalene block. ANESTHESIA PROVIDER: Suzie Bojorquez. CLINICAL RESEARCH TECHNICIAN: Yessica Arevalo PA-C, and Anisha Sidhu LPN. ESTIMATED BLOOD LOSS: 300 mL. COMPLICATIONS: None. CONDITION: Stable. IMPLANTS: 1. Arthrex size 36 +4 glenosphere. 2. Arthrex 24 mm baseplate. 3. Arthrex size 5 humeral stem 135-degree with a +3 liner. DESCRIPTION OF PROCEDURE: The patient was identified in the preoperative holding area. Proper site was marked and identified by the surgeon. The patient was taken back to the operating theater, where after adequate anesthesia, the patient's left upper extremity was sterilely prepped and draped in the usual sterile fashion. OR time-out was performed. The patient received 2 g IV Ancef. The patient was placed in a reverse Trendelenburg position. A deltopectoral incision was made. This was taken down to the cephalic vein. Cephalic vein and deltoid were then retracted laterally. This was taken down to the clavipectoral fascia. Clavipectoral fascia was incised. Conjoined tendon was retracted medially. The circumflex vessels were ligated. Biceps tendon was identified and a tenodesis of the biceps tendon was performed. Tenotomy was then performed proximally and a curved Avery was taken all the way back to the level of the glenoid and the biceps was resected. Peel down of the subscapularis tendon was then done and the humeral head was dislocated. The neck cut was then completed and found to be adequate. Attention was turned to the glenoid. Anterior and posterior glenoid retractors were placed. Circumferential removal of the labrum as well as partial capsulectomy was then performed. I had good visualization of the glenoid and the guide pin was placed in a center-center position with roughly 5 to 10 degrees of inferior tilt. The central reamer was then utilized and then the peripheral reamer for a 36 mm glenosphere. Base plate was then screwed into place and was found to have good compression and an inferior and superior locking screw were then placed. The 36 +4 glenosphere was impacted into place and the set screw was then placed and was found to be adequately fixated. Attention was turned to the humerus. Starting with a 5 broach, I was able to only broach up to size 5. The central reamer was then used for the humerus. 135-degree trial implant with a +3 liner was then trialed. The patient was noted to have full range of motion with no signs of instability. Shoulder was then dislocated and the real implants were constructed on the back table with a size 5 stem, 135-degree with a +3 liner. This was then impacted into place and blocked into the left shoulder. Shoulder was then reduced. C-arm fluoroscopy was utilized throughout the procedure showing that the implants were well positioned with otherwise no signs of fracture. 1 L dilute Betadine solution was irrigated through the shoulder along with 3 L of pulse lavage irrigation with Ancef. Topical tranexamic acid, vancomycin powder were applied. 0 Vicryl was used deep, 2-0 Vicryl was used subcutaneously, and Prineo was used for the skin. The patient tolerated the procedure well and was sent to PACU in stable condition. MMODAL /[id number]
== END 2020-01-20 14:40 | disposition home or self-care (01) | DRG 483 ==
LOC: JD.MS 01-19 09:36
PROVIDERS: ADMIT Orthopaedic Surgery; ATTEND Orthopaedic Surgery
PROC: 0RRK00Z Replacement of Left Shoulder Joint with Reverse Ball and Socket Synthetic Substitute, Open Approach (ICD-10-PCS; principal; 2020-01-19)
DX: M19.012 Primary osteoarthritis, left shoulder (principal); Z68.42 Body mass index [BMI] 45.0-49.9, adult; F41.9 Anxiety disorder, unspecified; G47.33 Obstructive sleep apnea (adult) (pediatric); Z99.81 Dependence on supplemental oxygen; F32.9 Major depressive disorder, single episode, unspecified; D64.9 Anemia, unspecified; G43.909 Migraine, unspecified, not intractable, without status migrainosus; E66.9 Obesity, unspecified; E55.9 Vitamin D deficiency, unspecified; H91.90 Unspecified hearing loss, unspecified ear; E03.9 Hypothyroidism, unspecified; N18.9 Chronic kidney disease, unspecified; G89.29 Other chronic pain; M54.2 Cervicalgia; K59.09 Other constipation; I25.10 Atherosclerotic heart disease of native coronary artery without angina pectoris; Z86.19 Personal history of other infectious and parasitic diseases; Z79.890 Hormone replacement therapy; Z79.84 Long term (current) use of oral hypoglycemic drugs; Z79.899 Other long term (current) drug therapy; I12.9 Hypertensive chronic kidney disease with stage 1 through stage 4 chronic kidney disease, or unspecified chronic kidney disease; M62.838 Other muscle spasm; E11.22 Type 2 diabetes mellitus with diabetic chronic kidney disease
CPT/HCPCS: 01638; 36415; 64415; 73020-26-LT; 73020-LT; 76000; 76000-26; 80053; 82962; 85027; 87641; 94660; 94760; 97110-GP; 97116-GP; 97161-GP; 97165-GO; 97535-GO; A9270-GY; C1713; C1776; J0690; J2001; J2250; J2270; J2370; J2704; J2795; J3010; J3370; J3490; J7120; U0002

== ENCOUNTER 2020-01-14 10:08 | Day surgery (SDC) | payer MEDICARE, OTHER ==
--- NOTE | 2020-01-13 09:17 | PCM.PREANE ---
Preanesthetic Assessment - Procedure Proposed Procedure: EKG and Colonoscopy - Anesthesia/Transfusion/Family Hx Anesthesia History: Prior Anesthesia Without Reaction Family History of Anesthesia Reaction: No Transfusion History: No Prior Transfusion(s) Intubation History: Unknown - Review of Systems General: No Symptoms, Fatigue Pulmonary: No Symptoms (OCTVAIO with CPAP, ETOH: occasionally) Cardiovascular: No Symptoms (HTN, CHF), Dyspnea on Exertion, Edema (lower leg edema-none present today) Gastrointestinal: No Symptoms (History of GI bleed.), Constipation Neurological: No Symptoms (left shoulder pain=#5/10), Dizziness (2017 carotid artery stenosis: 1-49%), Headache (history of migraines) Other: Reports: None (History Hepatitis C: antibodies present/stable per patient ), Easy Bruising, Diabetes (AM blood sugar:7303=019), Thyroid Problems ( hypothyroid), Sinus Problem (post nasal drip), Neck Pain, Depression, Anxiety - Physical Assessment NPO Status Date: 01/14/20 NPO Status Time: 21:00 Vital Signs: HR:93 SAT:97% B/P:134/77 Temp:97.4 Resp:16 Height: 1.47 m Weight: 105.687 kg ASA Class: 3 Mental Status: Alert & Oriented x3 Airway Class: Mallampati = 2 Dentition: Reports: Normal Dentition, Caries Thyro-Mental Finger Breadths: 3 Mouth Opening Finger Breadths: 3 ROM/Head Extension: Full Lungs: Clear to Auscultation, Normal Respiratory Effort Cardiovascular: Regular Rate, Regular Rhythm, No Murmurs - Lab Values: History of Hep C. All labs reviewed and noted and within acceptable ranges to proceed with scheduled procedure. - Imaging/EKG Impressions: EKG: (2019) SR rate=99 Consider old inferior infarct, Q waves in III, and aVF. CXR: 10/2019: negative Echocardiogram: 2019: EF= 50-65% - Allergies Allergies/Adverse Reactions: Allergies Allergy/AdvReac Type Severity Reaction Status Date / Time No Known Allergies Allergy Verified 01/13/20 13:44 - Anesthesia Plan Pre-Op Medication Ordered: None - Acknowledgements Anesthesia Type Planned: MAC Pt an Appropriate Candidate for the Planned Anesthesia: Yes Alternatives and Risks of Anesthesia Discussed w Pt/Guardian: Yes Pt/Guardian Understands and Agrees with Anesthesia Plan: Yes PreAnesthesia Questionnaire HEENT History: Reports: Allergic Rhinitis Other HEENT History: Hearing loss Cardiovascular History: Reports: Hypertension Respiratory History: Reports: Sleep Apnea, Other (See Below) Other Respiratory History: Cough Gastrointestinal History: Reports: Chronic Constipation, GI Bleed Genitourinary History: Reports: None [employer] History: Reports: Musculoskeletal History: Reports: Arthritis, Osteoarthritis, Other (See Below) Other Musculoskeletal History: Neck muscle spasms, shoulder pain Neurological History: Reports: Migraines Other Neuro History: Rarely Migraines Psychiatric History: Reports: Anxiety, Depression Endocrine/Metabolic History: Reports: Hypothyroidism, Obesity/BMI 30+, Vitamin D Deficiency Other Endocrine/Metabolic History: Elevated blood sugars Hematologic History: Reports: None Other Hematologic History: Hepatitis C. Immunologic History: Reports: None Oncologic (Cancer) History: Reports: None Dermatologic History: Reports: None - Infectious Disease History Infectious Disease History: Reports: Hepatitis C, MRSA, Other (See Below) Other Infectious Disease History: Patient reports herpes - Past Surgical History Head Surgeries/Procedures: Reports: None HEENT Surgical History: Reports: Other (See Below) Other HEENT Surgeries/Procedures: [place] tooth extraction Cardiovascular Surgical History: Reports: None Respiratory Surgical History: Reports: None Female Surgical History: Reports: Section Endocrine Surgical History: Reports: None Neurological Surgical History: Reports: None Other Musculoskeletal Surgeries/Procedures:: Bunion correction Oncologic Surgical History: Reports: None Dermatological Surgical History: Reports: None - HOME MEDS Home Medications: Home Meds Acyclovir 400 mg PO BID 01/08/18 [History] Levothyroxine 125 mcg PO DAILY 01/08/18 [History] Lisinopril 20 mg PO BID 01/08/18 [History] SUMAtriptan [Imitrex] 50 mg PO ASDIRECTED PRN 01/08/18 [History] buPROPion [buPROPion XL] 150 mg PO DAILY 01/08/18 [History] hydroCHLOROthiazide [Hydrochlorothiazide] 25 mg PO DAILY 01/08/18 [History] ClonazePAM [KlonoPIN] 0.5 mg PO BID PRN 09/26/19 [History] busPIRone [Buspar] 15 mg PO BID 09/26/19 [History] ARIPiprazole [Aripiprazole] 5 mg PO DAILY 01/13/20 [History] Ascorbic Acid [Vitamin C] 500 mg PO DAILY 01/13/20 [History] Calcium Carb/Vitamin D3/Vit K1 [Calcium + D Soft Chewable Tab] 1 tab PO DAILY [History] Cholecalciferol (Vitamin D3) [Vitamin D3] 5,000 unit PO DAILY 01/13/20 [History] DULoxetine [Cymbalta] 120 mg PO DAILY 01/13/20 [History] Ferrous Sulfate [Slow Fe] 140 mg PO DAILY 01/13/20 [History] Fluticasone Propionate [Flonase] 1 dose NASBOTH BID 01/13/20 [History] Furosemide 20 mg PO BID 01/13/20 [History] Hydrocortisone 1 dose RECTAL BID PRN 01/13/20 [History] Magnesium Oxide 250 mg PO DAILY 01/13/20 [History] Multivitamin 1 tab PO DAILY 01/13/20 [History] Potassium Chloride 10 meq PO BID 01/13/20 [History] buPROPion HCL [Wellbutrin Xl] 300 mg PO DAILY 01/13/20 [History] metFORMIN [Glucophage XR] 500 mg PO BID 01/13/20 [History] polyethylene glycoL 3350 [MiraLAX] 1 dose PO DAILY PRN 01/13/20 [History] - CURRENT (IN HOUSE) MEDS Current Meds: Current Medications Lactated Ringer's (Ringers, Lactated) 1,000 mls @ 125 mls/hr IV ASDIRECTED NICOLASA Stop: 01/14/20 23:00 Lidocaine/Sodium Bicarbonate (Buffered Lidocaine 1% In Ns 8.4%) 0.25 ml IDERM ONETIME PRN PRN Reason: Prior to IV Start Stop: 01/14/20 18:00 Sodium Chloride (Saline Flush) 10 ml FLUSH ASDIRECTED PRN PRN Reason: Keep Vein Open Stop: 01/14/20 18:00
[~2020-01-14 10:08] MED LIST: Lactated Ringers 1,000 ML IV SCH; Lactated Ringers 1,000 ML ONE; Lidocaine 1% 6 ML ONE; Lidocaine 1%/Sod Bicarbonate in NS 8.4% 1 ML Syringe IDERM PRN; Propofol 200 MG/20 ML SDV ONE; Sodium Chloride 0.9% 10 ML Syringe FLUSH PRN; fentaNYL 100 MCG/2 ML SDV ONE
[2020-01-14] MEDS ORDERED: Midazolam 1 MG/ML 2 ML SDV ONE (11:41)
[2020-01-14] MEDS ORDERED: Propofol 200 MG/20 ML SDV ONE (13:02)
--- NOTE | 2020-01-14 13:31 | PCM.OPNOTE ---
- General Post-Op/Procedure Note Date of Surgery/Procedure: 01/14/20 Operative Procedure(s): EGD and colonoscopy Findings: 1. Hemorrhagic gastritis 2. Gastric polyps 3. Irregular GE junction Pre Op Diagnosis: Recent GI bleed, constipation, melena, hematochezia, History of H. pylori Post-Op Diagnosis: same Anesthesia Technique: JULIENNE Primary Surgeon: Bina Appiah Anesthesia Provider: Lorrie Vasquez Pathology: 1. Antrum biopsy 2. Greater curvature gastric polyp biopsy 3. GE junction biopsy 4. Transverse colon biopsy 5. Descending colon biopsy Fluid Replacement, Intraop: 800 Output, Urine Amount: 0 EBL in mLs: 0 Complications: none apparent Condition: Good
--- NOTE | 2020-01-14 13:35 | PCM.PRNOTE ---
- Free Text/Narrative Note: Operative Report Date of Procedure: January 14, 2020 Pre Op Diagnosis: Recent GI bleed, constipation, melena, hematochezia, History of H. pylori Post-Op Diagnosis: Same Operative Procedures: 1. EGD with biopsy 2. Colonoscopy to the cecum with biopsy Primary Surgeon: Bina Appiah MD Anesthesia Provider: Lorrie Vasquez CRNA Anesthesia Technique: MAC IV Fluid Replacement, Intraop: 800cc crystalloid Output, Urine Amount: 0cc EBL in mLs: 0cc Findings: 1. Hemorrhagic gastritis 2. Gastric polyps 3. Irregular GE junction Specimens: 1. Antrum biopsy 2. Greater curvature gastric polyp biopsy 3. GE junction biopsy 4. Transverse colon biopsy 5. Descending colon biopsy Drain/Tubes: None Indication: The patient is a 64-year-old lady who presented to the clinic for follow-up after hospitalization with an upper GI bleed. The patient had been consuming large quantities of NSAIDs and did not have endoscopy at the time of her hospitalization. The patient reported symptoms of melena and constipation. The patient was consented for a diagnostic EGD and colonoscopy. Risks of bleeding, and perforation were discussed, and the patient agreed to the risks and wished to proceed. Description of the procedure: The patient was taken back to the endoscopy suite, and placed in the left lateral decubitus position. A bite block was placed. The patient was sedated with MAC anesthesia. The Olympus video endoscope was inserted into the oropharynx and guided under direct vision into the esophagus, stomach, and duodenum. The duodenal bulb and second portion of the duodenum were unremarkable. The gastric antrum was inspected and cold biopsy forceps were used to take tissue samples for H. pylori. The scope was withdrawn to the stomach and retroflexed. There was no increased fluid, food or secretions in the upper gastrointestinal tract. There were punctate areas of blood in the stomach consistent with stigmata of recent bleeding. No erosions or ulcers were noted. She did have 2 small polyps in the greater curvature that had some associated bleeding. One of these was biopsied using a cold biopsy forceps. The scope was withdrawn to the esophagus. A this point we did not see a hiatal hernia. No specific Barretts esophagus changes were noted, liver, the GE junction was somewhat irregular. This GE junction tissue was biopsied in 4 quadrants using a cold biopsy forceps. The endoscope was then withdrawn. Next, anorectal examination was performed. No lesions, masses or hemorrhoids were noted externally or on palpation. The scope was placed into the rectum and advanced to cecum. Upon reaching the cecum, and the patients cecum was entered. There was mild tortuosity of the colon, but also significant looping requiring abdominal pressure to reach the cecum. The ileocecal valve was well visualized and the appendiceal orifice identified. At this point, the scope was slowly withdrawn, paying attention to the mucosa. The patient had good bowel prep, 85-90% of the mucosa was visible after washing and suctioning. A few areas of erythematous, friable mucosa was noted. This may have been from trauma from the colonoscope. Cold biopsy forceps were used to take tissue samples in the transverse colon and descending colon for evaluation. In the rectum, scope was retroflexed and some hemorrhoidal tissue was noted. The scope was placed back in the lumen and excess air was aspirated. The scope was removed. The patient tolerated the procedure very well. Complications: None apparent Condition: The patient was transported to PACU in stable condition. Bina Appiah MD General Surgery
--- NOTE | 2020-01-14 13:36 | PCM48HPAN ---
Post Anesthesia Note - EVALUATION WITHIN 48HRS OF ANESTHETIC Vital Signs in Normal Range: Yes Patient Participated in Evaluation: Yes Respiratory Function Stable: Yes Airway Patent: Yes Cardiovascular Function Stable: Yes Hydration Status Stable: Yes Pain Control Satisfactory: Yes Nausea and Vomiting Control Satisfactory: Yes Mental Status Recovered: Yes Vital Signs: Last Vital Signs Temp 36.4 C 01/14/20 10:10 Pulse 93 01/14/20 10:10 Resp 16 01/14/20 10:10 BP 134/77 01/14/20 10:10 Pulse Ox 97 01/14/20 10:10
== END 2020-01-14 14:25 | disposition home or self-care (01) ==
LOC: JD.SDS 10:08
PROVIDERS: ATTEND Surgery
DX: K29.50 Unspecified chronic gastritis without bleeding (principal); I11.9 Hypertensive heart disease without heart failure; K31.7 Polyp of stomach and duodenum; K31.89 Other diseases of stomach and duodenum; K59.00 Constipation, unspecified; K64.9 Unspecified hemorrhoids; F41.9 Anxiety disorder, unspecified; F32.9 Major depressive disorder, single episode, unspecified; E66.9 Obesity, unspecified; E03.9 Hypothyroidism, unspecified; Z11.59 Encounter for screening for other viral diseases; Z79.890 Hormone replacement therapy; Z79.899 Other long term (current) drug therapy; Z98.890 Other specified postprocedural states; Z68.42 Body mass index [BMI] 45.0-49.9, adult
CPT/HCPCS: 43239; 45380; 82962; 88305; 88342; J2001; J2250; J2704; J3010; J7120; U0002; 00813

== ENCOUNTER 2020-10-18 09:51 | Day surgery (SDC) | payer MEDICARE, OTHER ==
[~2020-10-18 09:51] MED LIST changes: +Acetaminophen 325 MG Tab PO SCH; -Lactated Ringers 1,000 ML ONE; -Lidocaine 1% 6 ML ONE; +Pregabalin 25 MG Cap PO SCH; -Propofol 200 MG/20 ML SDV ONE; -fentaNYL 100 MCG/2 ML SDV ONE; +oxyCODONE ER 10 MG TAB.ER PO SCH
--- NOTE | 2020-10-18 10:32 | PCM.PREANE ---
Preanesthetic Assessment - Procedure Proposed Procedure: Right Knee Total Replacement - Anesthesia/Transfusion/Family Hx Anesthesia History: Prior Anesthesia Without Reaction Transfusion History: No Prior Transfusion(s) Intubation History: Unknown - Review of Systems General: No Symptoms Pulmonary: Other (Sleep Apnea with CPAP) Cardiovascular: No Symptoms Gastrointestinal: Other (GERD) Neurological: Headache (Migraines), Difficulty Walking (Due to knee and foot pain. ), Other (Memory changes, balance problems. ) Other: Reports: None (Morbid Obesity BMI 48.5), Diabetes (type II controlled with Metformin. Blood glucose 132mg/dl. ), Thyroid Problems (Hypothyroidism), Depression, Anxiety - Physical Assessment NPO Status Date: 10/17/20 NPO Status Time: 21:00 Height: 1.5 m Weight: 104 kg ASA Class: 3 Mental Status: Alert & Oriented x3 Airway Class: Mallampati = 2 Dentition: Reports: Normal Dentition Thyro-Mental Finger Breadths: 3 Mouth Opening Finger Breadths: 3 ROM/Head Extension: Full Lungs: Clear to Auscultation, Normal Respiratory Effort Cardiovascular: Regular Rate, Regular Rhythm - Lab Values: Laboratory Last Values POC Glucose 132 mg/dL (80-115) H 10/18/20 10:16 MRSA (PCR) Negative 10/08/20 12:58 - Allergies Allergies/Adverse Reactions: Allergies Allergy/AdvReac Type Severity Reaction Status Date / Time No Known Allergies Allergy Verified 10/17/20 10:23 - Anesthesia Plan Pre-Op Medication Ordered: Anxiolytic - Acknowledgements Anesthesia Type Planned: Spinal, Regional Block (Post opertive Adductor Canal Block for pain control requested per Dr. Henry. ) PreAnesthesia Questionnaire HEENT History: Reports: Allergic Rhinitis, Hard of Hearing, Impaired Vision, Other (See Below) Other HEENT History: tinnitis Cardiovascular History: Reports: Hypertension Other Cardiovascular History: coronary artery stenosis, peripheral edema Respiratory History: Reports: Sleep Apnea, Other (See Below) Other Respiratory History: Cough, shortness of breath Gastrointestinal History: Reports: Chronic Constipation, GI Bleed, Hemorrhoids, Hepatitis, Helicobacter Pylori, Other (See Below) Other Gastrointestinal History: bloating, gastric bleed, nausea Genitourinary History: Reports: Renal Disease, STD 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: Musculoskeletal History: Reports: Arthritis, Osteoarthritis, Other (See Below) Other Musculoskeletal History: Neck muscle spasms, shoulder pain, frequenty falls, shoulder pain Neurological History: Reports: Migraines Other Neuro History: balance problems, memory changes, dizziness Psychiatric History: Reports: Anxiety, Depression, Panic Attack, Other (See Below) Other Psychiatric History: chronic pain, excessive daytime sleepiness, fatigue, malaise Endocrine/Metabolic History: Reports: Diabetes, Type II, Hypothyroidism, Obesity/BMI 30+, Vitamin D Deficiency Other Endocrine/Metabolic History: Elevated blood sugars Hematologic History: Reports: Anemia, Iron Deficiency Other Hematologic History: Hepatitis C. Immunologic History: Reports: None Oncologic (Cancer) History: Reports: None Dermatologic History: Other Dermatologic History: skin neoplasm, onchomycosis, cold sores - Infectious Disease History Infectious Disease History: Reports: MRSA, Other (See Below) Other Infectious Disease History: current MRSA screens have been negative - Past Surgical History Head Surgeries/Procedures: Reports: None HEENT Surgical History: Reports: Oral Surgery, Other (See Below) Other HEENT Surgeries/Procedures: [place] tooth extraction Cardiovascular Surgical History: Reports: None Respiratory Surgical History: Reports: None GI Surgical History: Reports: Colonoscopy Female Surgical History: Reports: Section Male Surgical History: Reports: None Endocrine Surgical History: Reports: None Neurological Surgical History: Reports: None Musculoskeletal Surgical History: Reports: Shoulder Replacement, Shoulder Surgery, Other (See Below) Other Musculoskeletal Surgeries/Procedures:: Bunion correction Oncologic Surgical History: Reports: None Dermatological Surgical History: Reports: None - SUBSTANCE USE Tobacco Use Status *Q: Never Tobacco User Recreational Drug Use History: No - HOME MEDS Home Medications: Home Meds Acyclovir 400 mg PO BID 01/08/18 [History] Lisinopril 20 mg PO BID 01/08/18 [History] SUMAtriptan [Imitrex] 50 mg PO ASDIRECTED PRN 01/08/18 [History] hydroCHLOROthiazide [Hydrochlorothiazide] 25 mg PO DAILY 01/08/18 [History] ClonazePAM [KlonoPIN] 0.5 mg PO QID PRN 09/26/19 [History] busPIRone [Buspar] 15 mg PO BID 09/26/19 [History] ARIPiprazole [Aripiprazole] 10 mg PO DAILY 01/13/20 [History] Fluticasone Propionate [Flonase] 1 dose NASBOTH BID 01/13/20 [History] Hydrocortisone 1 dose RECTAL BID PRN 01/13/20 [History] Potassium Chloride 10 meq PO BID 01/13/20 [History] buPROPion HCL [Wellbutrin Xl] 300 mg PO DAILY 01/13/20 [History] metFORMIN [Glucophage XR] 500 mg PO BID 01/13/20 [History] Pantoprazole [ProTONIX] 40 mg PO DAILY #30 tab.cr 01/20/20 [Rx] DULoxetine HCl [Cymbalta] 30 mg PO DAILY 10/17/20 [History] DULoxetine HCl [Cymbalta] 60 mg PO DAILY 10/17/20 [History] Ferrous Sulfate [Iron] 325 mg PO Q48H 10/17/20 [History] Levothyroxine Sodium [Levothyroxine] 112 mcg PO DAILY 10/17/20 [History] buPROPion [Wellbutrin SR] 150 mg PO DAILY 10/17/20 [History] Apixaban [Eliquis] 2.5 mg PO BID #60 tablet 10/18/20 [Rx] Cyclobenzaprine [Flexeril] 10 mg PO BID PRN #20 tab 10/18/20 [Rx] oxyCODONE 5 - 10 mg PO Q4H PRN #40 tab 10/18/20 [Rx] - CURRENT (IN HOUSE) MEDS Current Meds: Current Medications Acetaminophen (Tylenol) 975 mg PO ONETIME NICOLASA Stop: 10/18/20 13:00 Last Admin: 10/18/20 10:25 Dose: 975 mg Documented by: Morphine Sulfate 8 mg/Epinephrine HCl 0.3 mg/Cefuroxime Sodium 750 mg/Ketorolac Tromethamine 30 mg/Sodium Chloride 7.9 ml 0 mg .XX ASDIRECTED PRN PRN Reason: Pain Stop: 10/18/20 18:00 Lactated Ringer's (Ringers, Lactated) 1,000 mls @ 125 mls/hr IV ASDIRECTED NICOLASA Stop: 10/18/20 23:00 Lidocaine/Sodium Bicarbonate (Buffered Lidocaine 1% In Ns 8.4%) 0.25 ml IDERM ONETIME PRN PRN Reason: Prior to IV Start Stop: 10/18/20 18:00 Oxycodone HCl (Oxycontin) 10 mg PO ONETIME NICOLASA Stop: 10/18/20 13:00 Last Admin: 10/18/20 10:23 Dose: 10 mg Documented by: Pregabalin (Lyrica) 50 mg PO ONETIME NICOLASA Stop: 10/18/20 13:00 Last Admin: 10/18/20 10:24 Dose: 50 mg Documented by: Sodium Chloride (Saline Flush) 10 ml FLUSH ASDIRECTED PRN PRN Reason: Keep Vein Open Stop: 10/18/20 18:00 Discontinued Medications Tranexamic Acid (Cyklokapron) Confirm Administered Dose 1,000 mg .ROUTE .STK-MED ONE Stop: 10/18/20 10:18 Vancomycin HCl (Vancomycin) Confirm Administered Dose 1 gm .ROUTE .STK-MED ONE Stop: 10/18/20 10:18
[2020-10-18] MEDS ORDERED: fentaNYL 100 MCG/2 ML SDV ONE (10:40)
[2020-10-18] MEDS ORDERED: Propofol 200 MG/20 ML SDV ONE ×2 (10:40→13:03)
[2020-10-18] MEDS ORDERED: Midazolam 1 MG/ML 2 ML SDV ONE ×2 (10:40→11:22)
[2020-10-18] MEDS ORDERED: Ketamine 500 mg/10 ML MDV ONE (10:41)
[2020-10-18] MEDS ORDERED: Lidocaine 1% 4 ML ONE (10:45)
[2020-10-18] MEDS ORDERED: Lactated Ringers 1,000 ML ONE ×2 (12:03→12:59)
[2020-10-18] MEDS ORDERED: Phenylephrine 1% 10 MG/ML SDV ONE ×2 (12:07→12:08)
[2020-10-18] MEDS ORDERED: EPINEPHrine 1 MG/ML SDV ONE (12:29)
[2020-10-18] MEDS ORDERED: Ropivacaine 0.5% 5 MG/ML 30 ML SDV ONE (12:29)
[2020-10-18] MEDS: Triamcinolone Acetonide 40 MG/ML 1 ML SDV ONE ×2 (12:51→13:54)
[2020-10-18] MEDS: Bupivacaine 0.25% 10 ML SDV ONE ×2 (12:52→13:54)
[2020-10-18] MEDS: Morphine 8 MG, EPINEPHrine 0.3 MG, Cefuroxime 750 MG, Ketorolac 30 MG, Sodium Chloride ... PRN ×10 (12:53→13:20)
[2020-10-18] MEDS: Vancomycin 1 GM SDV ONE ×2 (12:53→13:32)
--- NOTE | 2020-10-18 14:18 | PCM.POSTAN ---
POST ANESTHESIA ASSESSMENT - MENTAL STATUS Free Text/Narrative:: drowsy - VITAL SIGNS Vital Signs: Last Vital Signs Temp 98 F 10/18/20 10:15 Pulse 96 10/18/20 10:15 Resp 11 10/18/20 10:15 BP 103/60 10/18/20 10:15 Pulse Ox 96 10/18/20 10:15 - RESPIRATORY Respiratory Status: Respiratory Rate WNL, Airway Patent, O2 Saturation Stable, Supplemental Oxygen - CARDIOVASCULAR CV Status: Pulse Rate WNL, Blood Pressure Stable - GASTROINTESTINAL GI Status: No Symptoms - PAIN Pain Score: 0 - POST OP HYDRATION Hydration Status: Adequate & Stable
[2020-10-18] MEDS ORDERED: Ondansetron 4 MG/2 ML SDV IVPUSH PRN (14:19)
[2020-10-18] MEDS ORDERED: diphenhydrAMINE 50 MG/ML SDV IVPUSH PRN (14:19)
--- NOTE | 2020-10-18 14:41 | PCM.SN.2 ---
- Free Text/Narrative Note: Right selective femoral nerve block at the adductor canal for post-procedure pain control under US guidance requested by Dr. Henry. Date:10/18/2020 Time Out:1420 Start:1420 End: 1426 Chart reviewed. Consent signed. Questions answered. Appropriate monitors applied. Time out performed. Right mid-shaft femur identified with ultrasound, scanning medially of femur, the femoral artery in the adductor canal visualized, and the femoral nerve located laterally to the artery. The skin was prepped lateral to the ultrasound probe with chlorahexadine times two. The 21ga 4 insulated block needle was inserted under direct ultrasound guidance into the adductor canal. 25mL of 0.5% ropivacaine with 1:200,000 epinephrine was injected circumferentially around the nerve with intermittent negative aspiration noted. Patient tolerated the procedure well. Sterile technique noted along with sterile gloves, mask, and sterile probe cover. See picture on progress note and vital signs on nurses notes. Block completed in PACU. Manjit Ni CRNA
--- NOTE | 2020-10-18 14:57 | CR ---
Right knee: AP and crosstable lateral views of the right knee were obtained. Comparison: Previous CT right knee exam of 10/08/20. Knee prosthesis is noted. Patellar prosthesis is seen. Components are aligned. Soft tissue air is noted. No acute postoperative osseous abnormality is appreciated. Impression: 1. Satisfactory postop radiographic appearance of right knee prosthesis. Diagnostic code #2
--- NOTE | 2020-10-18 16:18 | PCM48HPAN ---
Post Anesthesia Note - EVALUATION WITHIN 48HRS OF ANESTHETIC Vital Signs in Normal Range: Yes Patient Participated in Evaluation: Yes Respiratory Function Stable: Yes Airway Patent: Yes Cardiovascular Function Stable: Yes Hydration Status Stable: Yes Pain Control Satisfactory: Yes (minimal pain) Nausea and Vomiting Control Satisfactory: Yes Mental Status Recovered: Yes Vital Signs: Last Vital Signs Temp 97.3 F 10/18/20 15:07 Pulse 88 10/18/20 16:00 Resp 17 10/18/20 16:00 BP 113/60 10/18/20 16:00 Pulse Ox 97 10/18/20 16:00
--- NOTE | 2020-10-18 17:46 | PCM.OPNOTE ---
- General Post-Op/Procedure Note Date of Surgery/Procedure: 10/18/20 Operative Procedure(s): right total knee arthroplasty with [employer] robot[employer] Pre Op Diagnosis: right total knee osteoarthrosis Post-Op Diagnosis: Same Anesthesia Technique: Local, MAC, Spinal Primary Surgeon: Augusto Henry Anesthesia Provider: Sonia Doe Carton Waxing Machine Operator: Yessica Arevalo Cart[employer] Waxing Machine Operator: Anisha Sidhu EBL in mLs: 5 Complications: None Condition: Good Free Text/Narrative:: Intake & Output 10/18/20 10/18/20 10/18/20 06:59 14:59 22:59 Intake Total 565 Balance 565 4 femur 3 tibia 9mm 29x9
--- NOTE | 2020-10-27 13:06 | OR ---
DATE OF OPERATION: 10/18/2020 SURGEON: Augusto Henry MD OPERATION PERFORMED: Right total knee arthroplasty with [employer] robot[employer]. PREOPERATIVE DIAGNOSIS: Right knee osteoarthrosis. POSTOPERATIVE DIAGNOSIS: Right knee osteoarthrosis. ANESTHESIA: Local MAC with spinal. ANESTHESIA PROVIDER: Sonia Doe. ASSISTANTS: Yessica Arevalo PA-C, and Anisha Sidhu LPN ESTIMATED BLOOD LOSS: 5 mL. COMPLICATIONS: None. CONDITION: Stable. IMPLANTS: 1. Margy size 4 cemented PS femur. 2. [place] size 3 cemented [place] tibial baseplate. 3. Margy size 3, 9 mm PS X3 polyethylene. 4. [place] size 29 x 9 mm cemented asymmetric patella. DESCRIPTION OF PROCEDURE: The patient was identified in the preoperative holding area where proper site was marked and identified by the surgeon. The patient was taken back to the operative theater, where after adequate anesthesia, the patient's right lower extremity had nonsterile tourniquet applied. It was then sterilely prepped and draped in usual sterile fashion. OR time-out was performed. The patient received 2 g of IV Ancef. At this time, the foot thomas was applied and the right lower extremity was exsanguinated. Tourniquet was insufflated to 250 mmHg. Standard anterior incision was done. The patient was noted to have very little flexion, only to around 60 degrees, which caused significant difficulties at the beginning of this case and made it a much harder total knee arthroplasty than normal. Medial parapatellar arthrotomy was created. Deep fibers of the MCL were raised and anterior fat pad was resected. Patella was then resected, it measured a 21, resected to a 13 for a 29 x 9 mm patella. Drill holes were then drilled and found to be adequate. Attention was turned to the femur and the tibia. Two 4.0 pins were placed in the femur intra-incisionally as well as extra-incisionally distally to the tibial tubercle by 3 fingerbreadths for the [place] Booker robotic arrays in both the femur and the tibia. Checkpoints were then applied to the femur and tibia as well. Hip center rotation was obtained. 40 points were then obtained from both the femur and the tibia. At this time, the patient's knee was brought into full extension. It was noted to have significant varus deformity. Varus and valgus stresses were applied in both full extension and flexion at 90 degrees. [employer] robotic planned for an 18 mm gap's cut once we did proper varus in the tibia and femur as well as rotation was obtained. At this time, the [employer] robot arm was brought in and the tibial, the anterior, the anterior chamfer, and the posterior cuts were completed. Saw blade was then switched and the distal femoral cut as well as a posterior chamfer cut was completed at this time. All bony fragments were removed. The patient was noted to have a large amount of posterior osteophytes, which did cause significant time to remove all posterior osteophytes from the patient's posterior capsule region. Medial and lateral menisci were also resected. At this time, [place] size 3 trial baseplate was placed as well as [place] size 4 trial femur. The patient had 9 mm polyethylene placed. The knee was brought into full extension. The patient had full extension. There was no varus-valgus instability. She had full flexion until the thigh met her calf and the patella was tracking centrally. At this time, all [employer] robotic arrays and pins were removed as well as the checkpoints. A box cut was completed at this time, and the tibia was stamped and drilled in proper rotation. All cut surfaces were irrigated with pulse lavage irrigation with Ancef and then completely dried. Once the cement was mixed and ready, the size 3 tibial baseplate was cemented into place, excess cement was removed. The size 4 femur was cemented into place and again cement was removed. 9 mm PS X3 polyethylene was placed. The patient's knee was brought into full extension. 29 x 9 mm patella was then cemented into place as well. At this time, 1 L pulse lavage irrigation with Ancef was irrigated through the knee along with 400 mL Irrisept irrigation. Periarticular injection was completed. Topical tranexamic acid and vancomycin powder were applied. A #2 barbed suture was used for closure of the medial parapatellar arthrotomy. 2-0 Vicryl and Stratafix were used for subcutaneous closure and Prineo was used for skin closure. The patient had a sterile soft dressing applied and sent to the PACU in stable condition. MMODAL /[id number]
== END 2020-10-18 17:21 | disposition home or self-care (01) ==
LOC: JD.SDS 09:51
PROVIDERS: ATTEND Orthopaedic Surgery
DX: M17.0 Bilateral primary osteoarthritis of knee (principal); G89.29 Other chronic pain; I10 Essential (primary) hypertension; E03.9 Hypothyroidism, unspecified; E66.01 Morbid (severe) obesity due to excess calories; G47.33 Obstructive sleep apnea (adult) (pediatric); F41.8 Other specified anxiety disorders; D50.9 Iron deficiency anemia, unspecified; E11.9 Type 2 diabetes mellitus without complications; Z79.899 Other long term (current) drug therapy; Z79.890 Hormone replacement therapy; Z98.890 Other specified postprocedural states; Z68.42 Body mass index [BMI] 45.0-49.9, adult; Z79.84 Long term (current) use of oral hypoglycemic drugs
CPT/HCPCS: 01402; 64450; 73560-26-RT; 73560-RT; 82962; 87641; 97110-GP; 97116-GP; 97161-GP; A9270-GY; C1713; C1776; J0171; J0697; J1885; J2250; J2270; J2370; J2704; J2795; J3010; J3301; J3370; J3490; J7120

== ENCOUNTER 2023-02-07 07:55 | Day surgery (SDC) | payer MEDICARE ==
[~2023-02-07 07:55] MED LIST changes: -Acetaminophen 325 MG Tab PO SCH; +Dexmedetomidine 200 MCG/2 ML SDV ONE; +EPINEPHrine 1 MG/ML SDV ONE; -Lactated Ringers 1,000 ML IV SCH; +Lidocaine 1% 5 ML VIAL ONE; -Lidocaine 1%/Sod Bicarbonate in NS 8.4% 1 ML Syringe IDERM PRN; +Midazolam 1 MG/ML 2 ML SDV ONE; +Morphine 8 MG, EPINEPHrine 0.3 MG, Cefuroxime 750 MG, Ketorolac 30 MG, Sodium Chloride ... PRN; -Pregabalin 25 MG Cap PO SCH; +Propofol 200 MG/20 ML SDV ONE; +Ropivacaine 0.5% 5 MG/ML 30 ML SDV ONE; +Sodium Chloride 0.9% 10 ML Syringe FLUSH SCH; +ceFAZolin 2 GM Vial ONE; +fentaNYL 100 MCG/2 ML SDV ONE; -oxyCODONE ER 10 MG TAB.ER PO SCH
[2023-02-07] MEDS ORDERED: Acetaminophen 325 MG Tab PO SCH (08:00)
[2023-02-07] MEDS ORDERED: Pregabalin 25 MG Cap PO SCH (08:00)
[2023-02-07] MEDS ORDERED: oxyCODONE ER 10 MG TAB.ER PO SCH (08:00)
[2023-02-07] MEDS ORDERED: Lidocaine 4% Crm 5 Gm with Transparent Dressing Kit TOP ONE (08:06)
[2023-02-07] MEDS: Lactated Ringers 1,000 ML IV SCH ×2 (08:40→09:34)
[2023-02-07] MEDS ORDERED: Vancomycin 1 GM SDV ONE (09:19)
[2023-02-07] MEDS ORDERED: Tranexamic Acid 1,000 MG/10 ML Vial ONE (09:19)
[2023-02-07] MEDS ORDERED: Ketamine 500 mg/10 ML MDV ONE (09:23)
[2023-02-07] MEDS ORDERED: Midazolam 1 MG/ML 2 ML SDV ONE (10:17)
[2023-02-07] MEDS ORDERED: Succinylcholine 200 MG/10 ML MDV ONE (10:30)
[2023-02-07] MEDS ORDERED: fentaNYL 250 MCG/5 ML SDV ONE (10:39)
[2023-02-07] MEDS ORDERED: Dexamethasone 4 MG/ML 5 ML MDV ONE (10:44)
[2023-02-07] MEDS ORDERED: ePHEDrine 50 MG/ML SDV ONE (10:45)
[2023-02-07] MEDS ORDERED: HYDROmorphone 0.5 MG/0.5 ML Syringe ONE ×2 (10:56→11:24)
[2023-02-07] MEDS ORDERED: Phenylephrine 1% 10 MG/ML SDV ONE (11:01)
[2023-02-07] MEDS ORDERED: Lactated Ringers 1,000 ML ONE (11:05)
[2023-02-07] MEDS ORDERED: fentaNYL 100 MCG/2 ML SDV IVPUSH PRN (11:28)
[2023-02-07] MEDS ORDERED: HYDROmorphone 0.5 MG/0.5 ML Syringe IVPUSH PRN (11:28)
[2023-02-07] MEDS ORDERED: Ondansetron 4 MG/2 ML SDV IVPUSH PRN (11:28)
[2023-02-07] MEDS ORDERED: Ondansetron 4 MG/2 ML SDV ONE ×2 (11:34)
[2023-02-07] MEDS ORDERED: oxyCODONE 5 MG Tab PO SCH (13:27)
== END 2023-02-07 16:35 | disposition home or self-care (01) ==
LOC: JD.SDS 07:55
PROVIDERS: ATTEND Orthopaedic Surgery
DX: M17.12 Unilateral primary osteoarthritis, left knee (principal); M25.762 Osteophyte, left knee; I10 Essential (primary) hypertension; E11.9 Type 2 diabetes mellitus without complications; E03.9 Hypothyroidism, unspecified; F32.A Depression, unspecified; F41.9 Anxiety disorder, unspecified; G43.909 Migraine, unspecified, not intractable, without status migrainosus; E55.9 Vitamin D deficiency, unspecified; D50.9 Iron deficiency anemia, unspecified; E78.5 Hyperlipidemia, unspecified; G47.33 Obstructive sleep apnea (adult) (pediatric); E78.00 Pure hypercholesterolemia, unspecified; Z88.8 Allergy status to other drugs, medicaments and biological substances; Z79.899 Other long term (current) drug therapy; Z79.890 Hormone replacement therapy; Z79.84 Long term (current) use of oral hypoglycemic drugs; Z86.16 Personal history of COVID-19; Z98.890 Other specified postprocedural states; Z79.82 Long term (current) use of aspirin
CPT/HCPCS: 0055T; 27447; 64447; 73560; 82947; 97116; 97161; A9270; C1713; C1776; J0171; J0330; J0690; J0697; J1100; J1170; J1885; J2250; J2270; J2370; J2405; J2704; J2795; J3010; J3370; J3490; J7120; 01402